=== PATIENT | male | born 1970 | race African-American/Black ===

== ENCOUNTER → 2017-02-17 | Outpatient (CLI) | payer MEDICARE ==
[~2017-02-17] VITALS: Ht 170.2 cm; Wt 81.6 kg
[~2017-02-17] MED LIST: ACHD5005 PO; ALPR1TAB72 PO; BSP10T PO; FLUT1DIS26 IH; GLYB5TAB6 PO; PGLT30T PO; RT-COMBINH IH; SITA100T PO; SULI200T4 PO; ZLP10T PO; ZPR80C PO; [UNRECOGNIZED DRUG - CODE] PO; [UNRECOGNIZED DRUG - CODE] PO
--- NOTE | 2017-02-17 13:46 | Diagnostic Imaging Report ---
INDICATION: Line placement. TECHNIQUE: Single-view chest at 01:28 p.m. CORRELATION STUDY: None. FINDINGS: A right-sided central line has been placed. Tip appears to be just distal to the expected location of the aortocaval junction. Heart size, mediastinum, and vascularity are otherwise unremarkable. The lungs are clear with no consolidating infiltrate. There is no significant effusion or pneumothorax. IMPRESSION: 1. Right-sided central line tip appears to be just distal to the aortocaval junction. Dictated by: Dictated on workstation # [id number]
[2017-02-17 14:08] VITALS: BP 98/47
== END ==
LOC: SDC 12:05
PROVIDERS: ATTEND Orthopaedic Surgery
DX: Z45.2 Encounter for adjustment and management of vascular access device (principal); T81.9XXA Unspecified complication of procedure, initial encounter
CPT/HCPCS: 36569; 71010; 76937

== ENCOUNTER 2020-06-01 02:53 | Emergency (ER) | payer MEDICARE ==
[~2020-06-01] VITALS: Ht 170 cm; Wt 109.0 kg
--- OUTSIDE RECORDS SUMMARY | 2020-06-01 02:59 | XMS REPORT | Clinical Summary ---
Author Author Ellen, Kalyan Cardoza Organization [facility] Address Unknown Phone Unavailable Allergies, Adverse Reactions, Alerts Allergy Name Reaction Description Start Date Severity Status Pr ovider No Known Allergies Adamaris ROBERTT Conditions or Problems Problem Name Problem Code Onset Date Status Entry Date Provider Comment Standard Description Annotate Back pain, lumbar, chronic 724.2 Active Hector Spencer DO Lumbago BMI 35-35.9 Active Adamaris Dykes LRT B vani Mass Index 35.0-35.9, adult Obesity Class II (BMI 35-39.9) Active Adamaris ROBERTT Obesity, unspecified Shoulder pain, left, chronic 719.41 Active 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 Pain in joint involving shoulder region Medication List Medication Instructions Start Date Stop Date Generic Name NDC Status Provider Patient Instruction OXYCODONE HCL 5 MG ORAL TABLET 1 tab po 6 to 8 hours as need ed for pain OXYCODONE HCL 12880153861 Active Adamaris Dykes LRT Active GABAPENTIN 100 MG ORAL CAPSULE 1 po q hs GABAPENT IN 76292620212 Active Cordelia Soliman Active CYMBALTA 60 MG ORAL CAPSULE DELAYED RELEASE PARTICLES 1 cap by mouth daily DULOXETINE HCL 88304865601 Active Cordelia Soliman Active CYMBALTA 30 MG ORAL CAPSULE DELAYED RELEASE PARTICLES 1 cap by mouth daily x 7 days DULOXETINE HCL 93493004275 Active Hector Spencer DO Active HYDROCODONE-ACETAMINOPHEN 5-325 MG ORAL TABLET 1 tab b y mouth every 6 hours as needed HYDROCODONE-ACETAMINOPHEN 83170364834 Active Vinod Spencer DO Active Vital Signs Date Name Value Unit Range Description blood pressure, diastolic 94 mm[Hg] BP wallis blood pressure, systolic 140 mm[Hg] BP sys pulse rate E&M 109 /min Heart rate temperature E&M 98.2 [degF] Body temp erature weight E&M 231.90 [lb_av] Weight Measure d Encounters Code Encounter Date Provider Facility CPT-78062 Level 3 Est. 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
--- OUTSIDE RECORDS SUMMARY | 2020-06-01 02:59 | XMS REPORT | Clinical Summary ---
Author Author Admin, Kalyan Cardoza Organization [facility] Address Unknown Phone Unavailable Allergies, Adverse Reactions, Alerts Allergy Name Reaction Description Start Date Severity Status Pr ovider No Known Allergies Adamaris osorio LRT Conditions or Problems Problem Name Problem Code Onset Date Status Entry Date Provider Comment Standard Description Annotate Back pain, lumbar, chronic 724.2 Active Hector Spencer DO Lumbago BMI 35-35.9 Active Adamaris Dykes LRT B vani Mass Index 35.0-35.9, adult Obesity Class II (BMI 35-39.9) Active Adamaris osorio LRT Obesity, unspecified Shoulder pain, left, chronic 719.41 Active 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 Pain in joint involving shoulder region Medication List Medication Instructions Start Date Stop Date Generic Name NDC Status Provider Patient Instruction OXYCODONE HCL 5 MG ORAL TABLET 1 tab po 6 to 8 hours as need ed for pain OXYCODONE HCL 85091229423 Active Adamaris Dykes LRT Active GABAPENTIN 100 MG ORAL CAPSULE 1 po q hs GABAPENT [place] 72087522043 Active Cordelia Soliman Active CYMBALTA 60 MG ORAL CAPSULE DELAYED RELEASE PARTICLES 1 cap by mouth daily DULOXETINE HCL 74724096818 Active Cordelia Soliman Active CYMBALTA 30 MG ORAL CAPSULE DELAYED RELEASE PARTICLES 1 cap by mouth daily x 7 days DULOXETINE HCL 68165358390 Active Hector Spencer DO Active HYDROCODONE-ACETAMINOPHEN 5-325 MG ORAL TABLET 1 tab b y mouth every 6 hours as needed HYDROCODONE-ACETAMINOPHEN 98391510741 Active Vinod Spencer DO Active Vital Signs Date Name Value Unit Range Description blood pressure, diastolic 94 mm[Hg] BP wallis blood pressure, systolic 140 mm[Hg] BP sys pulse rate E&M 109 /min Heart rate temperature E&M 98.2 [degF] Body temp erature weight E&M 231.90 [lb_av] Weight Measure d Encounters Code Encounter Date Provider Facility CPT-66849 Level 3 Est. Patient 17:10:23 CDT Perla lopez APRN 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
--- OUTSIDE RECORDS SUMMARY | 2020-06-01 02:59 | XMS REPORT | Clinical Summary ---
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 Pain in joint involving shoulder region Medication List Medication Instructions Start Date Stop Date Generic Name NDC Status Provider Patient Instruction OXYCODONE HCL 5 MG ORAL TABLET 1 tab po 6 to 8 hours as need ed for pain OXYCODONE HCL 32277327391 Active Adamaris Dykes LRT Active GABAPENTIN 100 MG ORAL CAPSULE 1 po q hs GABAPENT IN 24449823135 Active Cordelia Soliman Active CYMBALTA 60 MG ORAL CAPSULE DELAYED RELEASE PARTICLES 1 cap by mouth daily DULOXETINE HCL 75282130294 Active Cordelia Soliman Active CYMBALTA 30 MG ORAL CAPSULE DELAYED RELEASE PARTICLES 1 cap by mouth daily x 7 days DULOXETINE HCL 01805544263 Active Hector Spencer DO Active HYDROCODONE-ACETAMINOPHEN 5-325 MG ORAL TABLET 1 tab b y mouth every 6 hours as needed HYDROCODONE-ACETAMINOPHEN 81995953284 Active Vinod Spencer DO Active Vital Signs Date Name Value Unit Range Description blood pressure, diastolic 94 mm[Hg] BP wallis blood pressure, systolic 140 mm[Hg] BP sys pulse rate E&M 109 /min Heart rate temperature E&M 98.2 [degF] Body temp erature weight E&M 231.90 [lb_av] Weight Measure d Encounters Code Encounter Date Provider Facility CPT-24571 Level 3 Est. 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
--- OUTSIDE RECORDS SUMMARY | 2020-06-01 02:59 | XMS REPORT ---
Author Author [facility] Medic al HALLIE Luna Organization [facility] Address [address] [place] [id number] Phone [phone] Care Team Providers Care Civil Rights Attorney Name Role Phone NISHA TRAN DO PP [phone] Summary purpose TRANSITION OF CARE AUTO GENERATION Chief Complaint and Reason for Visit Admit Diagnosis 1 JOINT PAIN-L/LEG Problem list No authorized problems tracked for continuity of care are available for this vis it. Encounters No authorized problems tracked for encounter diagnoses are available for this vi sit. Medications No medications recorded for this patient visit Allergies, adverse reactions, alerts Allergen Category Ingredient Status Reaction Severity Onset Celexa Drug Allergy Celexa Confirmed or Verified Celexa Drug Allergy citalopram Confirmed or Verified Haldol Drug Allergy Haldol Confirmed or Verified Haldol Drug Allergy haloperidol Confirmed or Verified metformin Drug Allergy metformin Confirmed or Verified Immunizations No immunizations recorded for this patient visit Relevant diagnostic tests and/or laboratory data RESULTS Radiology Results [id number] KNEE XRAY - 3 VIEW PACs Image DATE OF EXAM: Jul 16 2015 RAD 0953-KNEE XRAY-3 VIEW - RIGHT: RADIOLOGY REPORT DATE OF SERVICE: 07/16/15 HISTORY: Knee pain RIGHT KNEE 3 [id number] HOURS The medial and lateral joint compartment s are normal. There is patellar spurring. There is no fracture or loose body. Mineralization is normal. IMPRESSION: Mild patellofemoral osteoarthritis. Rolly Manning MD MWThiago/nd07/16/2015 11:19:00 / 06/25 11:28:39 cc:Darnell Cardoza This document has been electronically Signed by: On: DATE OF EXAM: Jul 16 2015 RAD 0953-KNEE XRAY-3 VIEW - RIGHT: RADIOLOGY REPORT DATE OF SERVICE: 07/16/15 HISTORY: Knee pain RIGHT KNEE 3 [id number] HOURS The medial and lateral joint compartment s are normal. There is patellar spurring. There is no fracture or loose body. Mineralization is normal. IMPRESSION: Mild patellofemoral osteoarthritis. MD SEGUN Riddle/nd07/16/2015 11:19:06/25 11:28:39 cc:Darnell Cardoza This document has been electronically Signed by: ROLLY MANNING On: Jul 16 2 015 12:11P Result Amended on 2015-07-16 at 12:11:48 . Previous status was VT. KNEE XRAY - 3 VIEW PACs Image DATE OF EXAM: Jul 16 2015 RAD 0953-KNEE XRAY-3 VIEW - LEFT: RADIOLOGY REPORT DATE OF SERVICE: 07/16/15 HISTORY: Left knee pain LEFT KNEE 3 [id number] HOURS The medial and lateral joint compartment s are normal. There is mild degenerative patellar spurring. Minerali zation is normal. There is no fracture or loose body. IMPRESSION: Mild patellofemoral osteoarthritis. MD SEGUN Riddle/nd07/16/2015 11:19:06/25 11:29:21 cc:Darnell Cardoza This document has been electronically Signed by: On: DATE OF EXAM: Jul 16 2015 RAD 0953-KNEE XRAY-3 VIEW - LEFT: RADIOLOGY REPORT DATE OF SERVICE: 07/16/15 HISTORY: Left knee pain LEFT KNEE 3 [id number] HOURS The medial and lateral joint compartment s are normal. There is mild degenerative patellar spurring. Minerali zation is normal. There is no fracture or loose body. IMPRESSION: Mild patellofemoral osteoarthritis. MD SEGUN Riddle/nd07/16/2015 11:19:06/25 11:29:21 cc:Darnell Cardoza This document has been electronically Signed by: ROLLY MANNING On: Jul 16 2 015 12:11P Result Amended on 2015-07-16 at 12:11:53 . Previous status was VT. LUMBAR SPINE XRAY - 5V PACs Image DATE OF EXAM: Jul 16 2015 RAD 1050-LUMBAR SPINE XRAY-5 VIEW : RADIOLOGY REPORT DATE OF SERVICE: 07/16/15 HISTORY: Back pain LUMBAR SPINE 5 [id number] HOURS The lumbar vertebrae are normal in heigh t. There is no fracture. There is mild degenerative retrolisthesis of L 3 on L4 measuring 4-5 mm. There is disc narrowing with prominent margina l osteophytes at the L3-L4 level. There is degenerative facet narro wing and sclerosis at L4-L5 and L5-S1. There are changes of prior abdominal wal l herniorrhaphy. IMPRESSION: Degenerative lumbar disc kunal nges at L3-L4. Moderate lower lumbar facet arthrosis. Degenerative L3- L4 retrolisthesis. MD SEGUN Riddle/nd07/16/2015 11:18:06/25 11:27:16 cc:Darnell Cardoza This document has been electronically Signed by: On: DATE OF EXAM: Jul 16 2015 RAD 1050-LUMBAR SPINE XRAY-5 VIEW : RADIOLOGY REPORT DATE OF SERVICE: 07/16/15 HISTORY: Back pain LUMBAR SPINE 5 [id number] HOURS The lumbar vertebrae are normal in heigh t. There is no fracture. There is mild degenerative retrolisthesis of L 3 on L4 measuring 4-5 mm. There is disc narrowing with prominent margina l osteophytes at the L3-L4 level. There is degenerative facet narro wing and sclerosis at L4-L5 and L5-S1. There are changes of prior abdominal wal l herniorrhaphy. IMPRESSION: Degenerative lumbar disc kunal nges at L3-L4. Moderate lower lumbar facet arthrosis. Degenerative L3- L4 retrolisthesis. MD SEGUN Riddle/nd07/16/2015 11:18:00 06/25 11:27:16 cc:Darnell Cardoza This document has been electronically Signed by: ROLLY MANNING On: Jul 16 2 015 12:11P Result Amended on 2015-07-16 at 12:11:46 . Previous status was VT. PELVIS W/BILAT HIP XRAY PACs Image DATE OF EXAM: Jul 16 2015 RAD 1241-PELVIS W/BILAT HIP XRAYS : RADIOLOGY REPORT DATE OF SERVICE: 07/16/15 HISTORY: Bilateral hip pain PELVIS AND BILATERAL [id number] HOURS The bony pelvis is intact. The sacroilia c joints are normal and symmetrical. There is degenerative spurr ing involving the lateral acetabular margin on the right and minim al degenerative spurring is present at the left acetabulum. Both fem oral heads appear intact. There is mild femoral head spurring on the left. IMPRESSION: Bilateral hip osteoarthritis. MD SEGUN Riddle/nd07/16/2015 11:19:06/25 11:30:09 cc:Darnell Cardoza This document has been electronically Signed by: On: DATE OF EXAM: Jul 16 2015 RAD 1241-PELVIS W/BILAT HIP XRAYS : RADIOLOGY REPORT DATE OF SERVICE: 07/16/15 HISTORY: Bilateral hip pain PELVIS AND BILATERAL [id number] HOURS The bony pelvis is intact. The sacroilia c joints are normal and symmetrical. There is degenerative spurr ing involving the lateral acetabular margin on the right and minim al degenerative spurring is present at the left acetabulum. Both fem oral heads appear intact. There is mild femoral head spurring on the left. IMPRESSION: Bilateral hip osteoarthritis. MD SEGUN Riddle/nd07/16/2015 11:19:06/25 11:30:09 cc:Darnell Cardoza This document has been electronically Signed by: ROLLY MANNING On: Jul 16 2 015 12:11P Result Amended on 2015-07-16 at 12:11:54 . Previous status was VT. History of procedures Procedure Code Code Type Description Date Performed Performing Physician [id number] CPT-4 X-RAY EXAM OF LOWER SPINE 07-16-2015 DARNELL ORTIZ 28590 CPT-4 X-RAY EXAM OF HIPS 07-16-2015 DARNELL RUSH 57712 CPT-4 X-RAY EXAM OF KNEE, 3 07-16-2015 VANDANA ORTIZ 51957 CPT-4 X-RAY EXAM OF KNEE, 3 07-16-2015 VANDANA ORTIZ Functional status No functional or cognitive status observations are available for this visit. Vital signs No authorized vital signs are available for this visit. Social history No Social History or smoking status observations were recorded for this visit. ( Unknown if ever smoked.) Treatment Plan No treatment plan text is available for this visit. Hospital discharge instructions No discharge instruction text is available for this visit.
--- OUTSIDE RECORDS SUMMARY | 2020-06-01 02:59 | XMS REPORT | Clinical Summary ---
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 Problem Name Problem Code Onset Date Status Entry Date Provider Comment Standard Description Annotate Back pain, lumbar, chronic 724.2 Active Hector Spencer DO Lumbago Medication List Medication Instructions Start Date Stop Date Generic Name NDC Status Provider Patient Instruction GABAPENTIN 100 MG ORAL CAPSULE 1 po q hs GABAPENT [place] 31715068047 Active Cordelia Soliman Active CYMBALTA 60 MG ORAL CAPSULE DELAYED RELEASE PARTICLES 1 cap by mouth daily DULOXETINE HCL 88312950348 Active Cordelia Soliman Active CYMBALTA 30 MG ORAL CAPSULE DELAYED RELEASE PARTICLES 1 cap by mouth daily x 7 days DULOXETINE HCL 27486904081 Active Hector Spencer DO Active HYDROCODONE-ACETAMINOPHEN 5-325 MG ORAL TABLET 1 tab b y mouth every 6 hours as needed HYDROCODONE-ACETAMINOPHEN 63476018585 Active B adarsh Spencer DO Active Encounters Code Encounter Date Provider Facility CPT-96377 Level 3 New Patient 15:40:55 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
--- OUTSIDE RECORDS SUMMARY | 2020-06-01 02:59 | XMS REPORT | Referral Summary ---
Author Author [facility] Organization [facility] Address Unknown Phone Unavailable Care Team Providers Care Leveler Helper Name Role Phone Vishal Ellis PCP Encounter [facility] Date(s): 03/19/20 - 03/19/20 [facility] [address] [place] [address] [phone] Discharge Disposition: 01-Home or Self Care Attending Physician: Cecilio Pham MD Admitting Physician: Cecilio Pham MD Referring Physician: Cecilio Pham MD Vital Signs Most recent to 1 oldest [Reference Range]: Temperature Temporal 36.3 degC Artery [36.3-37.8 (03/19/20 6:00 AM) degC] Heart Rate Monitored 85 bpm [60-100 bpm] (03/19/20 11:15 AM) Respiratory Rate 19 br/min [14-20 br/min] (03/19/20 11:15 AM) Blood Pressure 112/86 mmHg [90-140/60-90 mmHg] (03/19/20 11:15 AM) Mean Arterial 96 mmHg Pressure, Cuff (03/19/20 11:15 AM) SpO2 96 % (03/19/20 11:15 AM) Problem List No data available for this section Allergies, Adverse Reactions, Alerts Substance Reaction Severity Status CeleXA Unknown Active Medications aspirin 81 mg, Oral, Daily, 0 Refill(s) Start Date: 03/19/20 Status: Ordered atorvastatin 10 mg oral tablet 10 mg 1 tabs, Oral, Bedtime (once a day), # 90 tabs, 0 Refill(s) Start Date: 03/13/20 Status: Ordered baclofen 20 mg oral tablet 20 mg 1 tabs, Oral, TID, # 90 tabs, 0 Refill(s) Start Date: 03/13/20 Status: Ordered Belsomra See Instructions, Oral Bedtime (once a day), 0 Refill(s) Start Date: 03/13/20 Status: Ordered benztropine 1 mg oral tablet 1 mg 1 tabs, Oral, BID, # 60 tabs, 0 Refill(s) Start Date: 03/13/20 Status: Ordered busPIRone 10 mg oral tablet 10 mg 1 tabs, Oral, BID, # 270 tabs, 0 Refill(s) Start Date: 03/19/20 Status: Ordered divalproex sodium 500 mg oral delayed release tablet mg tabs, Oral, Bedtime (once a day), 0 Refill(s) Start Date: 03/13/20 Status: Ordered glimepiride 2 mg oral tablet 2 mg 1 tabs, Oral, Daily, # 30 tabs, 0 Refill(s) Start Date: 03/13/20 Status: Ordered Invega Sustenna 234 mg/1.5 mL intramuscular suspension, extended release See Instructions, 234 mg IntraMuscular qMonth, 0 Refill(s) Start Date: 03/13/20 Status: Ordered Linzess 145 mcg oral capsule 145 mcg 1 caps, Oral, Daily, # 30 caps, 0 Refill(s) Start Date: 03/13/20 Status: Ordered metoprolol tartrate 25 mg oral tablet 25 mg 1 tabs, Oral, BID, # 60 tabs, 0 Refill(s) Start Date: 03/13/20 Status: Ordered oxyCODONE 5 mg oral capsule 5 mg 1 caps, Oral, q6hr, as needed for pain, 0 Refill(s) Start Date: 03/13/20 Status: Ordered Vistaril 50 mg oral capsule 50 mg 1 caps, Oral, Bedtime (once a day), # 30 caps, 0 Refill(s) Start Date: 03/19/20 Status: Ordered Vraylar 6 mg oral capsule 6 mg 1 caps, Oral, Daily, 0 Refill(s) Start Date: 03/19/20 Status: Ordered Results Most recent to 1 oldest [Reference Range]: WBC [4.8-10.8 10.2 10*3/uL 10*3/uL] (03/19/20 6:43 AM) RBC [4.60-6.20] 4.71 (03/19/20 6:43 AM) BUN [4-20 mg/dL] 14 mg/dL (03/19/20 6:43 AM) ABO/Rh B POS (03/19/20 6:42 AM) Glucose Lvl [70-100 139 mg/dL mg/dL] *HI* (03/19/20 6:43 AM) Potassium Lvl 4.3 mEq/L [3.6-5.1 mEq/L] (03/19/20 6:43 AM) MCV [82.0-99.0 fL] 89.2 fL (03/19/20 6:43 AM) MCHC [32.0-36.0 33.3 gm/dL gm/dL] (03/19/20 6:43 AM) Sodium Lvl [136-144 137 mEq/L mEq/L] (03/19/20 6:43 AM) Hct [42.0-52.0 %] 42.0 % (03/19/20:43 AM) Calcium Lvl 8.9 mg/dL [8.6-10.0 mg/dL] (03/19/20 6:43 AM) MCH [27.0-32.0 pg] 29.7 pg (03/19/20 6:43 AM) Hgb [14.0-18.0 14.0 gm/dL gm/dL] (03/19/20 6:43 AM) MPV [9.4-12.3 fL] 10.3 fL (03/19/20 6:43 AM) Platelet [150-400 240 10*3/uL 10*3/uL] (03/19/20 6:43 AM) Chloride [99-109 106 mEq/L mEq/L] (03/19/20 6:43 AM) CO2 [22-32 mEq/L] 22 mEq/L (03/19/20:43 AM) AGAP [3-20 mEq/L] 9 mEq/L (03/19/20 6:43 AM) RDW [11.5-14.5 %] 12.9 % (03/19/20 6:43 AM) Antibody Screen Tube NEG (03/19/20 6:42 AM) eGFR [>60 mL/min] >60 mL/min 1 (03/19/20 6:43 AM) Creatinine Lvl 0.81 mg/dL [0.64-1.27 mg/dL] (03/19/20 6:43 AM) 1Result Comment: Multiply eGFR results by 1.21 for race. Immunizations No data available for this section Procedures Procedure Date Related Diagnosis Body Site Status Catheterization Left Heart with Coronary 03/19/20 Completed Angiography1 1auto-populated from documented surgical case Social History Social History Type Response Smoking Status 10 or more cigarettes (1/2 pack or more)/day in last 30 days; Type: Cigarettes; Tobacco use per day: 1 pack or more; Number of years: 30; Total pack years: 1.5; Date Last Use: 020; entered on: 03/19/20 Assessment and Plan No data available for this section
--- OUTSIDE RECORDS SUMMARY | 2020-06-01 02:59 | XMS REPORT ---
Author Author [facility] Medic al HALLIE Luna Organization [facility] Address [address] [id number] Phone [phone] Care Team Providers Care Thoracic Surgeon Name Role Phone NISHA TRAN DO PP [phone] Summary purpose TRANSITION OF CARE AUTO GENERATION Chief Complaint and Reason for Visit No authorized Reason for Visit (Admitting Diagnosis) is available for this visit . Problem list No authorized problems tracked for [...] tests and/or laboratory data RESULTS Radiology Results [id number] KNEE XRAY - 3 VIEW PACs Image DATE OF EXAM: Jul 16 2015 RAD 0953-KNEE XRAY-3 VIEW - RIGHT: RADIOLOGY REPORT DATE OF SERVICE: 07/16/15 HISTORY: Knee pain RIGHT KNEE 3 [id number] HOURS The medial and lateral joint compartment s are normal. There is patellar spurring. There is no fracture or loose body. Mineralization is normal. IMPRESSION: Mild patellofemoral osteoarthritis. Rolly Manning MD MWThiago/ny07/16/2015 11:19:00 / 06/25 11:28:39 cc:Maikol Cardoza This document has been electronically Signed by: On: DATE OF EXAM: Jul 16 2015 RAD 0953-KNEE XRAY-3 VIEW - RIGHT: RADIOLOGY REPORT DATE OF SERVICE: 07/16/15 HISTORY: Knee pain RIGHT KNEE 3 [id number] HOURS The medial and lateral joint compartment s are normal. There is patellar spurring. There is no fracture or loose body. Mineralization is normal. IMPRESSION: Mild patellofemoral osteoarthritis. MD SEGUN Riddle/ny07/16/2015 11:19:06/25 11:28:39 cc:Maikol Cardoza This document has been electronically Signed by: ROLLY MANNING On: Jul 16 2 015 12:11P Result Amended on 2015-07-16 at 12:11:48 . Previous status was OK. KNEE XRAY - 3 VIEW PACs Image DATE OF EXAM: Jul 16 2015 RAD 0953-KNEE XRAY-3 VIEW - LEFT: RADIOLOGY REPORT DATE OF SERVICE: 07/16/15 HISTORY: Left knee pain LEFT KNEE 3 [id number] HOURS The medial and lateral joint compartment s are normal. There is mild degenerative patellar spurring. Minerali zation is normal. There is no fracture or loose body. IMPRESSION: Mild patellofemoral osteoarthritis. MD SEGUN Riddle/ny07/16/2015 11:19:06/25 11:29:21 cc:Maikol Cardoza This document has been electronically Signed by: On: DATE OF EXAM: Jul 16 2015 RAD 0953-KNEE XRAY-3 VIEW - LEFT: RADIOLOGY REPORT DATE OF SERVICE: 07/16/15 HISTORY: Left knee pain LEFT KNEE 3 [id number] HOURS The medial and lateral joint compartment s are normal. There is mild degenerative patellar spurring. Minerali zation is normal. There is no fracture or loose body. IMPRESSION: Mild patellofemoral osteoarthritis. MD SEGUN Riddle/ny07/16/2015 11:19:06/25 11:29:21 cc:Maikol Cardoza This document has been electronically Signed by: ROLLY MANNING On: Jul 16 2 015 12:11P Result Amended on 2015-07-16 at 12:11:53 . Previous status was OK. LUMBAR SPINE XRAY - 5V PACs Image DATE OF EXAM: Jul 16 2015 RAD 1050-LUMBAR SPINE XRAY-5 VIEW : RADIOLOGY REPORT DATE OF SERVICE: 07/16/15 HISTORY: Back pain LUMBAR SPINE 5 [id number] HOURS The lumbar vertebrae are normal in [...] arthrosis. Degenerative L3- L4 retrolisthesis. MD SEGUN Riddle/ny07/16/2015 11:18:06/25 11:27:16 cc:Maikol Cardoza This document has been electronically Signed by: On: DATE OF EXAM: Jul 16 2015 RAD 1050-LUMBAR SPINE XRAY-5 VIEW : RADIOLOGY REPORT DATE OF SERVICE: 07/16/15 HISTORY: Back pain LUMBAR SPINE 5 [id number] HOURS The lumbar vertebrae are normal in [...] arthrosis. Degenerative L3- L4 retrolisthesis. MD SEGUN Riddle/ny07/16/2015 11:18:00 / 06/25 11:27:16 cc:Maikol Cardoza This document has been electronically Signed by: ROLLY MANNING On: Jul 16 2 015 12:11P Result Amended on 2015-07-16 at 12:11:46 . Previous status was OK. PELVIS W/BILAT HIP XRAY PACs Image DATE OF EXAM: Jul 16 2015 RAD 1241-PELVIS W/BILAT HIP XRAYS : RADIOLOGY REPORT DATE OF SERVICE: 07/16/15 HISTORY: Bilateral hip pain PELVIS AND BILATERAL [id number] HOURS The bony pelvis is intact. The sacroilia c joints are normal and symmetrical. There is degenerative spurr ing involving the lateral acetabular margin on the right and minim al degenerative spurring is present at the left acetabulum. Both fem oral heads appear intact. There is mild femoral head spurring on the left. IMPRESSION: Bilateral hip osteoarthritis. MD SEGUN Riddle/nh07/16/2015 11:19:06/25 11:30:09 cc:Maikol Cardoza This document has been electronically Signed by: On: DATE OF EXAM: Jul 16 2015 RAD 1241-PELVIS W/BILAT HIP XRAYS : RADIOLOGY REPORT DATE OF SERVICE: 07/16/15 HISTORY: Bilateral hip pain PELVIS AND BILATERAL [id number] HOURS The bony pelvis is intact. The sacroilia c joints are normal and symmetrical. There is degenerative spurr ing involving the lateral acetabular margin on the right and minim al degenerative spurring is present at the left acetabulum. Both fem oral heads appear intact. There is mild femoral head spurring on the left. IMPRESSION: Bilateral hip osteoarthritis. MD SEGUN Riddle/nh07/16/2015 11:19:06/25 11:30:09 cc:Maikol Cardoza This document has been electronically Signed by: ROLLY MANNING On: Jul 16 2 015 12:11P Result Amended on 2015-07-16 at 12:11:54 . Previous status was OK. History of procedures No procedures recorded for this patient visit. Functional status No functional or cognitive status [...]
--- OUTSIDE RECORDS SUMMARY | 2020-06-01 02:59 | XMS REPORT | Clinical Summary ---
Author Author Ellen, Kalyan Cardoza Organization [facility] Address Unknown Phone Unavailable Allergies, Adverse [...] pain, left, chronic 719.41 Active Perla Fatou FRANCHISE FIELD CONSULTANT Pain in joint involving shoulder region Medication List Medication Instructions Start Date Stop Date Generic Name NDC Status Provider Patient Instruction OXYCODONE HCL 5 MG ORAL TABLET 1 tab po 6 to 8 hours as need ed for pain OXYCODONE HCL 37710875522 Active Adamaris Dykes LRT Active GABAPENTIN 100 MG ORAL CAPSULE 1 po q hs GABAPENT IN 92154982467 Active Cordelia Soliman Active CYMBALTA 60 MG ORAL CAPSULE DELAYED RELEASE PARTICLES 1 cap by mouth daily DULOXETINE HCL 28142809916 Active Cordelia Soliman Active CYMBALTA 30 MG ORAL CAPSULE DELAYED RELEASE PARTICLES 1 cap by mouth daily x 7 days DULOXETINE HCL 86774608980 Active Hector Spencer DO Active HYDROCODONE-ACETAMINOPHEN 5-325 MG ORAL TABLET 1 tab b y mouth every 6 hours as needed HYDROCODONE-ACETAMINOPHEN 29375294189 Active Vinod Spencer DO Active Vital Signs Date Name Value Unit Range Description blood pressure, diastolic 94 mm[Hg] BP wallis blood pressure, systolic 140 mm[Hg] BP sys pulse rate E&M 109 /min Heart rate temperature E&M 98.2 [degF] Body temp erature weight E&M 231.90 [lb_av] Weight Measure d Encounters Code Encounter Date Provider Facility CPT-32583 Level 3 Est. 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
--- OUTSIDE RECORDS SUMMARY | 2020-06-01 02:59 | XMS REPORT | Clinical Summary ---
Author Author Admin, Kalyan Cardoza Organization [facility] Address Unknown Phone Unavailable Allergies, Adverse Reactions, [...] pain, left, chronic 719.41 Active Perla Sell THERAPIST PHYS Pain in joint involving shoulder region Medication List Medication Instructions Start Date Stop Date Generic Name NDC Status Provider Patient Instruction OXYCODONE HCL 5 MG ORAL TABLET 1 tab po 6 to 8 hours as need ed for pain OXYCODONE HCL 03010900930 Active Adamaris Dykes LRT Active GABAPENTIN 100 MG ORAL CAPSULE 1 po q hs GABAPENT [place] 54950107216 Active Cordelia Soliman Active CYMBALTA 60 MG ORAL CAPSULE DELAYED RELEASE PARTICLES 1 cap by mouth daily DULOXETINE HCL 26139140565 Active Cordelia Soliman Active CYMBALTA 30 MG ORAL CAPSULE DELAYED RELEASE PARTICLES 1 cap by mouth daily x 7 days DULOXETINE HCL 75700791335 Active Hector Spencer DO Active HYDROCODONE-ACETAMINOPHEN 5-325 MG ORAL TABLET 1 tab b y mouth every 6 hours as needed HYDROCODONE-ACETAMINOPHEN 97445146703 Active Vinod Spencer DO Active Vital Signs Date Name Value Unit Range Description blood pressure, diastolic 94 mm[Hg] BP wallis blood pressure, systolic 140 mm[Hg] BP sys pulse rate E&M 109 /min Heart rate temperature E&M 98.2 [degF] Body temp erature weight E&M 231.90 [lb_av] Weight Measure d Encounters Code Encounter Date Provider Facility CPT-65248 Level 3 Est. 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
--- OUTSIDE RECORDS SUMMARY | 2020-06-01 03:00 | XMS REPORT | Clinical Summary ---
Author Author Admin, Kalyan Cardoza Organization [facility] Address Unknown Phone Unavailable Allergies, Adverse Reactions, Alerts Allergy Name Reaction Description Start Date Severity Status Pr ovider No Known Allergies Francine Villaseñorughn CAP BLOCKER Conditions or Problems Problem Name Problem Code Onset Date Status Entry Date Provider Comment Standard Description Annotate Back pain, lumbar, chronic 724.2 Active Hector Spencer DO Lumbago Medication List Medication Instructions Start Date Stop Date Generic Name NDC Status Provider Patient Instruction GABAPENTIN 100 MG ORAL CAPSULE 1 po q hs GABAPENT IN 76141314063 Active Cordeila Soliman Active CYMBALTA 60 MG ORAL CAPSULE DELAYED RELEASE PARTICLES 1 cap by mouth daily DULOXETINE HCL 12879952674 Active Cordelia Soliman Active CYMBALTA 30 MG ORAL CAPSULE DELAYED RELEASE PARTICLES 1 cap by mouth daily x 7 days DULOXETINE HCL 68161807819 Active Hector Spencer DO Active HYDROCODONE-ACETAMINOPHEN 5-325 MG ORAL TABLET 1 tab b y mouth every 6 hours as needed HYDROCODONE-ACETAMINOPHEN 99858862086 Active B adarsh Spencer DO Active Encounters Code Encounter Date Provider Facility CPT-92720 Level 3 New Patient 15:40:55 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
--- OUTSIDE RECORDS SUMMARY | 2020-06-01 03:00 | XMS REPORT | Clinical Summary ---
Author Author Admin, Kalyan Cardoza Organization [facility] Address Unknown Phone Unavailable Allergies, Adverse Reactions, Alerts Allergy Name Reaction Description Start Date Severity Status Pr ovider No Known Allergies Francine Villaseñorughn MANAGER OF MEDICAL Conditions or Problems Problem Name Problem Code Onset Date Status Entry Date Provider Comment Standard Description Annotate Back pain, lumbar, chronic 724.2 Active Hector Spencer DO Lumbago Medication List Medication Instructions Start Date Stop Date Generic Name NDC Status Provider Patient Instruction GABAPENTIN 100 MG ORAL CAPSULE 1 po q hs GABAPENT IN 22008287407 Active Cordelia Soliman Active CYMBALTA 60 MG ORAL CAPSULE DELAYED RELEASE PARTICLES 1 cap by mouth daily DULOXETINE HCL 39455024432 Active Cordelia Soliman Active CYMBALTA 30 MG ORAL CAPSULE DELAYED RELEASE PARTICLES 1 cap by mouth daily x 7 days DULOXETINE HCL 59458052473 Active Hector Spencer DO Active HYDROCODONE-ACETAMINOPHEN 5-325 MG ORAL TABLET 1 tab b y mouth every 6 hours as needed HYDROCODONE-ACETAMINOPHEN 51380220736 Active B adarsh Spencer DO Active Encounters Code Encounter Date Provider Facility CPT-62266 Level 3 New Patient 15:40:55 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
--- OUTSIDE RECORDS SUMMARY | 2020-06-01 03:00 | XMS REPORT | Clinical Summary ---
Author Author Admin, Kalyan Cardoza Organization [facility] Address Unknown Phone Unavailable Allergies, Adverse Reactions, Alerts Allergy Name Reaction Description Start Date Severity Status Pr ovider No Known Allergies Francine Bustillos PRINCIPAL GIFTS OFFICER Conditions or Problems Problem Name Problem Code Onset Date Status Entry Date Provider Comment Standard Description Annotate Back pain, lumbar, chronic 724.2 Active Hector Spencer DO Lumbago Medication List Medication Instructions Start Date Stop Date Generic Name NDC Status Provider Patient Instruction GABAPENTIN 100 MG ORAL CAPSULE 1 po q hs GABAPENT IN 59165773500 Active Cordelia Soliman Active CYMBALTA 60 MG ORAL CAPSULE DELAYED RELEASE PARTICLES 1 cap by mouth daily DULOXETINE HCL 69648741290 Active Cordelia Soliman Active CYMBALTA 30 MG ORAL CAPSULE DELAYED RELEASE PARTICLES 1 cap by mouth daily x 7 days DULOXETINE HCL 51130546210 Active Hector Spencer DO Active HYDROCODONE-ACETAMINOPHEN 5-325 MG ORAL TABLET 1 tab b y mouth every 6 hours as needed HYDROCODONE-ACETAMINOPHEN 04835681034 Active B adarsh Spencer DO Active Vital Signs Date Name Value Unit Range Description blood pressure, diastolic 70 mm[Hg] BP wallis blood pressure, systolic 100 mm[Hg] BP sys height E&M 68 [in_us] Bdy height pulse rate E&M 107 /min Heart rate temperature E&M 98.8 [degF] Body temp erature weight E&M 213 [lb_av] Weight Measure d Encounters Code Encounter Date Provider Facility CPT-99707 Level 3 New Patient 15:40:55 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
--- OUTSIDE RECORDS SUMMARY | 2020-06-01 03:00 | XMS REPORT | Clinical Summary ---
Author Author Admin, Kalyan Cardoza Organization [facility] Address Unknown Phone Unavailable Allergies, Adverse Reactions, Alerts Allergy Name Reaction Description Start Date Severity Status Pr ovider No Known Allergies Francine Bustillos TERRITORY SALES CONSULTANT Conditions or Problems Problem Name Problem Code Onset Date Status Entry Date Provider Comment Standard Description Annotate Back pain, lumbar, chronic 724.2 Active Hector Spencer DO Lumbago Medication List Medication Instructions Start Date Stop Date Generic Name NDC Status Provider Patient Instruction GABAPENTIN 100 MG ORAL CAPSULE 1 po q hs GABAPENT IN 47431924120 Active Hector Spencer DO Active CYMBALTA 60 MG ORAL CAPSULE DELAYED RELEASE PARTICLES 1 cap by mouth daily DULOXETINE HCL 10787973119 Active Hector Spencer DO Active CYMBALTA 30 MG ORAL CAPSULE DELAYED RELEASE PARTICLES 1 cap by mouth daily x 7 days DULOXETINE HCL 51293244884 Active Hector Spencer DO Active HYDROCODONE-ACETAMINOPHEN 5-325 MG ORAL TABLET 1 tab b y mouth every 6 hours as needed HYDROCODONE-ACETAMINOPHEN 60698442352 Active B adarsh Spencer DO Active Vital Signs Date Name Value Unit Range Description blood pressure, diastolic 70 mm[Hg] BP wallis blood pressure, systolic 100 mm[Hg] BP sys height E&M 68 [in_us] Bdy height pulse rate E&M 107 /min Heart rate temperature E&M 98.8 [degF] Body temp erature weight E&M 213 [lb_av] Weight Measure d Encounters Code Encounter Date Provider Facility CPT-43964 Level 3 New Patient 15:40:55 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
--- OUTSIDE RECORDS SUMMARY | 2020-06-01 03:00 | XMS REPORT | Clinical Summary ---
Author Author Admin, Kalyan Cardoza Organization [facility] Address Unknown Phone Unavailable Allergies, Adverse Reactions, Alerts Allergy Name Reaction Description Start Date Severity Status Pr ovider No Known Allergies Francine Bustillos CIVIL ENGINEERING PROFESSOR Conditions or Problems Problem Name Problem Code Onset Date Status Entry Date Provider Comment Standard Description Annotate Back pain, lumbar, chronic 724.2 Active Hector Spencer DO Lumbago Medication List Medication Instructions Start Date Stop Date Generic Name NDC Status Provider Patient Instruction GABAPENTIN 100 MG ORAL CAPSULE 1 po q hs GABAPENT IN 93960088347 Active Hector Spencer DO Active CYMBALTA 60 MG ORAL CAPSULE DELAYED RELEASE PARTICLES 1 cap by mouth daily DULOXETINE HCL 45445956021 Active Hector Spencer DO Active CYMBALTA 30 MG ORAL CAPSULE DELAYED RELEASE PARTICLES 1 cap by mouth daily x 7 days DULOXETINE HCL 57570022158 Active Hector Spencer DO Active HYDROCODONE-ACETAMINOPHEN 5-325 MG ORAL TABLET 1 tab b y mouth every 6 hours as needed HYDROCODONE-ACETAMINOPHEN 17325758989 Active B adarsh Spencer DO Active Vital Signs Date Name Value Unit Range Description blood pressure, diastolic 70 mm[Hg] BP wallis blood pressure, systolic 100 mm[Hg] BP sys height E&M 68 [in_us] Bdy height pulse rate E&M 107 /min Heart rate temperature E&M 98.8 [degF] Body temp erature weight E&M 213 [lb_av] Weight Measure d Encounters Code Encounter Date Provider Facility CPT-53393 Level 3 New Patient 15:40:55 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
--- OUTSIDE RECORDS SUMMARY | 2020-06-01 03:00 | XMS REPORT | Clinical Summary ---
Author Author Admin, Kalyan Cardoza Organization [facility] Address Unknown Phone Unavailable Allergies, Adverse Reactions, Alerts Allergy Name Reaction Description Start Date Severity Status Pr ovider No Known Allergies Francine Bustillos VARNISH BLENDER Conditions or Problems Problem Name Problem Code Onset Date Status Entry Date Provider Comment Standard Description Annotate Back pain, lumbar, chronic 724.2 Active Hector Spencer DO Lumbago Medication List Medication Instructions Start Date Stop Date Generic Name NDC Status Provider Patient Instruction GABAPENTIN 100 MG ORAL CAPSULE 1 po q hs GABAPENT IN 67686038512 Active Hector Spencer DO Active CYMBALTA 60 MG ORAL CAPSULE DELAYED RELEASE PARTICLES 1 cap by mouth daily DULOXETINE HCL 63233925353 Active Hector Spencer DO Active CYMBALTA 30 MG ORAL CAPSULE DELAYED RELEASE PARTICLES 1 cap by mouth daily x 7 days DULOXETINE HCL 25649085956 Active Hector Spencer DO Active HYDROCODONE-ACETAMINOPHEN 5-325 MG ORAL TABLET 1 tab b y mouth every 6 hours as needed HYDROCODONE-ACETAMINOPHEN 78462292997 Active B adarsh Spencer DO Active Vital Signs Date Name Value Unit Range Description blood pressure, diastolic 70 mm[Hg] BP wallis blood pressure, systolic 100 mm[Hg] BP sys height E&M 68 [in_us] Bdy height pulse rate E&M 107 /min Heart rate temperature E&M 98.8 [degF] Body temp erature weight E&M 213 [lb_av] Weight Measure d Encounters Code Encounter Date Provider Facility CPT-54496 Level 3 New Patient 15:40:55 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
--- OUTSIDE RECORDS SUMMARY | 2020-06-01 03:00 | XMS REPORT | Clinical Summary ---
Author Author Admin, Kalyan Cardoza Organization [facility] Address Unknown Phone Unavailable Allergies, Adverse Reactions, Alerts Allergy Name Reaction Description Start Date Severity Status Pr ovider No Known Allergies Francine Lópezn WHAT JOB TITLES MEAN Conditions or Problems Problem Name Problem Code Onset Date Status Entry Date Provider Comment Standard Description Annotate Back pain, lumbar, chronic 724.2 Active Hector Spencer DO Lumbago Medication List Medication Instructions Start Date Stop Date Generic Name NDC Status Provider Patient Instruction GABAPENTIN 100 MG ORAL CAPSULE 1 po q hs GABAPENT IN 56552081466 Active Cordelia Soliman Active CYMBALTA 60 MG ORAL CAPSULE DELAYED RELEASE PARTICLES 1 cap by mouth daily DULOXETINE HCL 09320725814 Active Cordelia Soliman Active CYMBALTA 30 MG ORAL CAPSULE DELAYED RELEASE PARTICLES 1 cap by mouth daily x 7 days DULOXETINE HCL 85791698055 Active Hector Spencer DO Active HYDROCODONE-ACETAMINOPHEN 5-325 MG ORAL TABLET 1 tab b y mouth every 6 hours as needed HYDROCODONE-ACETAMINOPHEN 15791503728 Active B adarsh Spencer DO Active Encounters Code Encounter Date Provider Facility CPT-36510 Level 3 New Patient 15:40:55 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
--- OUTSIDE RECORDS SUMMARY | 2020-06-01 03:00 | XMS REPORT | Clinical Summary ---
Author Author Admin, Kalyan Cardoza Organization [facility] Address Unknown Phone Unavailable Allergies, Adverse Reactions, Alerts Allergy Name Reaction Description Start Date Severity Status Pr ovider No Known Allergies Francine Bustillos QUALITY RN Conditions or Problems Problem Name Problem Code Onset Date Status Entry Date Provider Comment Standard Description Annotate Back pain, lumbar, chronic 724.2 Active Hector Spencer DO Lumbago Medication List Medication Instructions Start Date Stop Date Generic Name NDC Status Provider Patient Instruction GABAPENTIN 100 MG ORAL CAPSULE 1 po q hs GABAPENT IN 07978108118 Active Hector Spencer DO Active CYMBALTA 60 MG ORAL CAPSULE DELAYED RELEASE PARTICLES 1 cap by mouth daily DULOXETINE HCL 48787827499 Active Hector Spencer DO Active CYMBALTA 30 MG ORAL CAPSULE DELAYED RELEASE PARTICLES 1 cap by mouth daily x 7 days DULOXETINE HCL 72642839389 Active Hector Spencer DO Active HYDROCODONE-ACETAMINOPHEN 5-325 MG ORAL TABLET 1 tab b y mouth every 6 hours as needed HYDROCODONE-ACETAMINOPHEN 23891854975 Active B adarsh Spencer DO Active Vital Signs Date Name Value Unit Range Description blood pressure, diastolic 70 mm[Hg] BP wallis blood pressure, systolic 100 mm[Hg] BP sys height E&M 68 [in_us] Bdy height pulse rate E&M 107 /min Heart rate temperature E&M 98.8 [degF] Body temp erature weight E&M 213 [lb_av] Weight Measure d Encounters Code Encounter Date Provider Facility CPT-88338 Level 3 New Patient 15:40:55 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
--- OUTSIDE RECORDS SUMMARY | 2020-06-01 03:00 | XMS REPORT | Clinical Summary ---
Author Author Admin, Kalyan Cardoza Organization [facility] Address Unknown Phone Unavailable Allergies, Adverse Reactions, Alerts Allergy Name Reaction Description Start Date Severity Status Pr ovider No Known Allergies Francine Villaseñorughn DECK STEWARD Conditions or Problems Problem Name Problem Code Onset Date Status Entry Date Provider Comment Standard Description Annotate Back pain, lumbar, chronic 724.2 Active Hector Spencer DO Lumbago Medication List Medication Instructions Start Date Stop Date Generic Name NDC Status Provider Patient Instruction GABAPENTIN 100 MG ORAL CAPSULE 1 po q hs GABAPENT IN 59839788346 Active Cordelia Soliman Active CYMBALTA 60 MG ORAL CAPSULE DELAYED RELEASE PARTICLES 1 cap by mouth daily DULOXETINE HCL 62086624742 Active Cordelia Soliman Active CYMBALTA 30 MG ORAL CAPSULE DELAYED RELEASE PARTICLES 1 cap by mouth daily x 7 days DULOXETINE HCL 60914409226 Active Hector Spencer DO Active HYDROCODONE-ACETAMINOPHEN 5-325 MG ORAL TABLET 1 tab b y mouth every 6 hours as needed HYDROCODONE-ACETAMINOPHEN 26758505673 Active B adarsh Spencer DO Active Encounters Code Encounter Date Provider Facility CPT-79029 Level 3 New Patient 15:40:55 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
--- OUTSIDE RECORDS SUMMARY | 2020-06-01 03:00 | XMS REPORT | Clinical Summary ---
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 Conditions or Problems Problem Name Problem Code Onset Date Status Entry Date Provider Comment Standard Description Annotate Back pain, lumbar, chronic 724.2 Active Hector Spencer DO Lumbago Medication List Medication Instructions Start Date Stop Date Generic Name NDC Status Provider Patient Instruction GABAPENTIN 100 MG ORAL CAPSULE 1 po q hs GABAPENT IN 19205911681 Active Hector Spencer DO Active CYMBALTA 60 MG ORAL CAPSULE DELAYED RELEASE PARTICLES 1 cap by mouth daily DULOXETINE HCL 83481633495 Active Hector Spencer DO Active CYMBALTA 30 MG ORAL CAPSULE DELAYED RELEASE PARTICLES 1 cap by mouth daily x 7 days DULOXETINE HCL 70113295796 Active Hector Spencer DO Active HYDROCODONE-ACETAMINOPHEN 5-325 MG ORAL TABLET 1 tab b y mouth every 6 hours as needed HYDROCODONE-ACETAMINOPHEN 96081353425 Active B adarsh Spencer DO Active Vital Signs Date Name Value Unit Range Description blood pressure, diastolic 70 mm[Hg] BP wallis blood pressure, systolic 100 mm[Hg] BP sys height E&M 68 [in_us] Bdy height pulse rate E&M 107 /min Heart rate temperature E&M 98.8 [degF] Body temp erature weight E&M 213 [lb_av] Weight Measure d Encounters Code Encounter Date Provider Facility CPT-83699 Level 3 New Patient 15:40:55 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
--- OUTSIDE RECORDS SUMMARY | 2020-06-01 03:00 | XMS REPORT | Clinical Summary ---
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 Conditions or Problems Problem Name Problem Code Onset Date Status Entry Date Provider Comment Standard Description Annotate Back pain, lumbar, chronic 724.2 Active Hector Spencer DO Lumbago Medication List Medication Instructions Start Date Stop Date Generic Name NDC Status Provider Patient Instruction GABAPENTIN 100 MG ORAL CAPSULE 1 po q hs GABAPENT IN 76984356605 Active Cordelia Soliman Active CYMBALTA 60 MG ORAL CAPSULE DELAYED RELEASE PARTICLES 1 cap by mouth daily DULOXETINE HCL 37731860600 Active Cordelia Soliman Active CYMBALTA 30 MG ORAL CAPSULE DELAYED RELEASE PARTICLES 1 cap by mouth daily x 7 days DULOXETINE HCL 56120081679 Active Hector Spencer DO Active HYDROCODONE-ACETAMINOPHEN 5-325 MG ORAL TABLET 1 tab b y mouth every 6 hours as needed HYDROCODONE-ACETAMINOPHEN 65462522212 Active B adarsh Spencer DO Active Encounters Code Encounter Date Provider Facility CPT-54632 Level 3 New Patient 15:40:55 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
--- OUTSIDE RECORDS SUMMARY | 2020-06-01 03:00 | XMS REPORT ---
Author Author Kalyan Bustillo [facility] Address [address] [place], [place] [id number] Care Team Providers Care Electrode Cleaning Machine Operator Name Role Phone Luis Bustillo PCP Allergies and Adverse Reactions Name Reaction Notes Celexa Plan of Treatment Not available. Medications Active Name Start Date Estimated Completion Date SIG Co mments benztropine 1 mg oral tablet luis eduardo e 1 tablet (1 mg) by oral route 2 times per day buspirone 10 mg oral tablet take 1 tablet (10 mg) by oral route 2 times per day diazepam 5 mg oral tablet take 1 tablet (5 mg) by oral route 2 times per day divalproex 500 mg oral tablet,delayed release (DR/EC) take 1 tablet by oral route once a day (at bedtime) duloxetine 60 mg oral capsule,delayed release(DR/EC) take 1 capsule (60 mg) by oral route once daily famotidine 20 mg oral tablet luis eduardo e 1 tablet (20 mg) by oral route once daily at bedtime gabapentin 100 mg oral capsule t corby 1 capsule (100 mg) by oral route once daily glimepiride 2 mg oral tablet take 1 table t (2 mg) by oral route once daily Linzess 145 mcg oral capsule luis eduardo e 1 capsule (145 mcg) by oral route once daily on an empty stomach at least 30 minutes before 1st meal of the day naproxen 500 mg oral tablet take 1 tablet (500 mg) by oral route every 12 hours with food Invega Sustenna 156 mg/mL intramuscular syringe inject 1 milliliter (156 mg) by intramuscular route once a month tamsulosin 0.4 mg oral capsule t corby 1 capsule (0.4 mg) by oral route once daily 1/2 hour following the same meal each day tizanidine 2 mg oral tablet take 1 tablet (2 mg) by oral route once daily baclofen 20 mg oral tablet 06/28/2019 07/28/2019 take 1 tablet (20 mg) by oral route 3 times per day for 30 days Problem List Not available. Vital Signs Date Time BP-Sys(mm[Hg] BP-Carolyn(mm[Hg]) HR(bpm) RR(rpm) Temp WT HT HC BMI BSA BMI Percentile O2 Sat(%) 06/28/2019 11:34:00 AM 136 mm[Hg] 78 mm[Hg] 125 {beats}/min 98.9 F 235.375 lbs 67 in 36.8646 kg/m2 2.2466 m2 98 % 05/01/2019 3:32:00 PM 140 mm[Hg] 90 mm[Hg] 135 {beats}/min 98.1 F 225.437 lbs 67 in 35.31 kg/m2 2.20 m2 97 % Social History Name Description Comments Alcohol Never Tobacco Current every day smoker History of Procedures Date Ordered Description Order Status 05/10/2019 12:00 AM MRI LUMBAR SPINE W/O & W/DYE Returned 05/16/2019 12:00 AM METABOLIC PANEL TOTAL CA Returned Results Summary Not available. History Of Immunizations Not available. History of Past Illness Name Date of Onset Comments bipolar Schizophrenia Thyroid disease Diabetes Mechanical low back pain May 01 2019 3:47PM Failed back surgical syndrome May 01 2019 3:47PM Acquired spinal instability May 01 2019 3:47PM Diabetes May 16 2019 1:13PM Mechanical low back pain Jun 28 2019 11:36AM Failed back surgical syndrome Jun 28 2019 11:36AM Acquired spinal instability Jun 28 2019 11:36AM Spasm Jun 28 2019 11:36AM Payers Insurance Name Company Name Plan Name Plan Number Policy Number Joe cy Group Number Start Date Medicare Part B [employer] Of [place] [id number] N/A History of Encounters Visit Date Visit Type Provider 06/28/2019 Office visit Luis Bustillo DO 05/01/2019 Office visit Luis Bustillo DO
--- OUTSIDE RECORDS SUMMARY | 2020-06-01 03:00 | XMS REPORT | Clinical Summary ---
Author Author Admin, Kalyan Cardoza Organization 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 Conditions or Problems Problem Name Problem Code Onset Date Status Entry Date Provider Comment Standard Description Annotate Back pain, lumbar, chronic 724.2 Active Hector Spencer DO Lumbago Medication List Medication Instructions Start Date Stop Date Generic Name NDC Status Provider Patient Instruction GABAPENTIN 100 MG ORAL CAPSULE 1 po q hs GABAPENT IN 10853662397 Active Hector Spencer DO Active CYMBALTA 60 MG ORAL CAPSULE DELAYED RELEASE PARTICLES 1 cap by mouth daily DULOXETINE HCL 87497091826 Active Hector Spencer DO Active CYMBALTA 30 MG ORAL CAPSULE DELAYED RELEASE PARTICLES 1 cap by mouth daily x 7 days DULOXETINE HCL 73457115777 Active Hector Spencer DO Active HYDROCODONE-ACETAMINOPHEN 5-325 MG ORAL TABLET 1 tab b y mouth every 6 hours as needed HYDROCODONE-ACETAMINOPHEN 06224886627 Active B adarsh Spencer DO Active Vital Signs Date Name Value Unit Range Description blood pressure, diastolic 70 mm[Hg] BP wallis blood pressure, systolic 100 mm[Hg] BP sys height E&M 68 [in_us] Bdy height pulse rate E&M 107 /min Heart rate temperature E&M 98.8 [degF] Body temp erature weight E&M 213 [lb_av] Weight Measure d Encounters Code Encounter Date Provider Facility CPT-28671 Level 3 New Patient 15:40:55 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
--- OUTSIDE RECORDS SUMMARY | 2020-06-01 03:00 | XMS REPORT | Clinical Summary ---
Author Author Admin, Kalyan Cardoza Organization 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 Problem Name Problem Code Onset Date Status Entry Date Provider Comment Standard Description Annotate Back pain, lumbar, chronic 724.2 Active Hector Spencer DO Lumbago Medication List Medication Instructions Start Date Stop Date Generic Name NDC Status Provider Patient Instruction GABAPENTIN 100 MG ORAL CAPSULE 1 po q hs GABAPENT IN 52707528484 Active Cordelia Soliman Active CYMBALTA 60 MG ORAL CAPSULE DELAYED RELEASE PARTICLES 1 cap by mouth daily DULOXETINE HCL 09708139630 Active Cordelia Soliman Active CYMBALTA 30 MG ORAL CAPSULE DELAYED RELEASE PARTICLES 1 cap by mouth daily x 7 days DULOXETINE HCL 77880878110 Active Hector Spencer DO Active HYDROCODONE-ACETAMINOPHEN 5-325 MG ORAL TABLET 1 tab b y mouth every 6 hours as needed HYDROCODONE-ACETAMINOPHEN 57701272394 Active B adarsh Spencer DO Active Encounters Code Encounter Date Provider Facility CPT-72061 Level 3 New Patient 15:40:55 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
--- OUTSIDE RECORDS SUMMARY | 2020-06-01 03:00 | XMS REPORT | Clinical Summary ---
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 Conditions or Problems Problem Name Problem Code Onset Date Status Entry Date Provider Comment Standard Description Annotate Back pain, lumbar, chronic 724.2 Active Hector Spencer DO Lumbago Medication List Medication Instructions Start Date Stop Date Generic Name NDC Status Provider Patient Instruction GABAPENTIN 100 MG ORAL CAPSULE 1 po q hs GABAPENT IN 33542555920 Active Cordelia Soliman Active CYMBALTA 60 MG ORAL CAPSULE DELAYED RELEASE PARTICLES 1 cap by mouth daily DULOXETINE HCL 87901313657 Active Cordelia Soliman Active CYMBALTA 30 MG ORAL CAPSULE DELAYED RELEASE PARTICLES 1 cap by mouth daily x 7 days DULOXETINE HCL 06331483783 Active Hector Spencer DO Active HYDROCODONE-ACETAMINOPHEN 5-325 MG ORAL TABLET 1 tab b y mouth every 6 hours as needed HYDROCODONE-ACETAMINOPHEN 91454994571 Active B adarsh Spencer DO Active Encounters Code Encounter Date Provider Facility CPT-11860 Level 3 New Patient 15:40:55 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
--- OUTSIDE RECORDS SUMMARY | 2020-06-01 03:00 | XMS REPORT | Clinical Summary ---
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 Problem Name Problem Code Onset Date Status Entry Date Provider Comment Standard Description Annotate Back pain, lumbar, chronic 724.2 Active Hector Spencer DO Lumbago Medication List Medication Instructions Start Date Stop Date Generic Name NDC Status Provider Patient Instruction GABAPENTIN 100 MG ORAL CAPSULE 1 po q hs GABAPENT IN 57659733537 Active Cordelia Soliman Active CYMBALTA 60 MG ORAL CAPSULE DELAYED RELEASE PARTICLES 1 cap by mouth daily DULOXETINE HCL 52382781071 Active Cordelia Soliman Active CYMBALTA 30 MG ORAL CAPSULE DELAYED RELEASE PARTICLES 1 cap by mouth daily x 7 days DULOXETINE HCL 46262112092 Active Hector Spencer DO Active HYDROCODONE-ACETAMINOPHEN 5-325 MG ORAL TABLET 1 tab b y mouth every 6 hours as needed HYDROCODONE-ACETAMINOPHEN 18128642556 Active B adarsh Spencer DO Active Vital Signs Date Name Value Unit Range Description blood pressure, diastolic 70 mm[Hg] BP wallis blood pressure, systolic 100 mm[Hg] BP sys height E&M 68 [in_us] Bdy height pulse rate E&M 107 /min Heart rate temperature E&M 98.8 [degF] Body temp erature weight E&M 213 [lb_av] Weight Measure d Encounters Code Encounter Date Provider Facility CPT-63621 Level 3 New Patient 15:40:55 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
--- OUTSIDE RECORDS SUMMARY | 2020-06-01 03:00 | XMS REPORT | Clinical Summary ---
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 Conditions or Problems Problem Name Problem Code Onset Date Status Entry Date Provider Comment Standard Description Annotate Back pain, lumbar, chronic 724.2 Active Hector Spencer DO Lumbago Medication List Medication Instructions Start Date Stop Date Generic Name NDC Status Provider Patient Instruction GABAPENTIN 100 MG ORAL CAPSULE 1 po q hs GABAPENT IN 44420531880 Active Cordelia Soliman Active CYMBALTA 60 MG ORAL CAPSULE DELAYED RELEASE PARTICLES 1 cap by mouth daily DULOXETINE HCL 83521852635 Active Cordelia Soliman Active CYMBALTA 30 MG ORAL CAPSULE DELAYED RELEASE PARTICLES 1 cap by mouth daily x 7 days DULOXETINE HCL 20868464029 Active Hector Spencer DO Active HYDROCODONE-ACETAMINOPHEN 5-325 MG ORAL TABLET 1 tab b y mouth every 6 hours as needed HYDROCODONE-ACETAMINOPHEN 28528662358 Active B adarsh Spencer DO Active Encounters Code Encounter Date Provider Facility CPT-67763 Level 3 New Patient 15:40:55 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
--- OUTSIDE RECORDS SUMMARY | 2020-06-01 03:01 | XMS REPORT ---
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 Floor Leader Name Role Phone USMAN LEES Unavailable PROBLEMS Type Condition ICD9-CM Code XTX12-TL Code Onset Dates Condition S tatus SNOMED Code Problem Type 2 diabetes mellitus wit hout complication, without long-term current use of insulin E11.9 Active 055814344 Problem Other chronic pain G89.29 Active 8 1645580 Problem Family history of prostate cancer in father Z80.42 Active 411181866 Problem Hx of partial thyroidectomy Z98.890 Ac tive 868669409 Problem Chronic obstructive pulmonary disease, unspecified COPD ty pe J44.9 Active 77320696 Problem Schizoaffective disorder, unspecified type F25.9 Active 58080374 Problem Constipation due to pain medication K59.03 Active 42766807 Problem Inflammatory spondylopathy of lumbar region M46.96 Active [id number] ALLERGIES No Information ENCOUNTERS Encounter Location Date Diagnosis [facility] [address] [place] [address] Aug, 18 [facility] [address] [place] [address] 10 Jul, 18 [facility] [address] [place] [address] 05 Jul, 18 Effusion, left knee M25.462 [facility] [address] [place] [address] 05 Jul, 18 Chronic obstructive pulmonary disease, unspecified COPD type J44.9 [facility] [address] [place] [address] 24 Jun, 18 Type 2 diabetes mellitus without complication, without long-term current use of insulin E11.9 ; Family history of prostate cancer in father Z80.42 and Hx of partial thyroidectomy Z98.890 [facility] [address] [place] [address] May, 18 Constipation due to pain medication K59.03 ; Chronic obstructive pulmonary disease, unspecified COPD type J44.9 ; Type 2 diabetes mellitus without complication, without long-term current use of insulin E11.9 and Other chronic pain G89.29 [facility] [address] [place] [address] 30 Apr, 18 Other chronic pain G89.29 and Constipation due to pain medication K59.03 [place] [id number] [place] [phone] Apr, [facility] [address] [place] [address] Apr, [address] [address] Apr, [address] [address] Apr, 18 [facility] [address] [place] [address] Apr, 18 Other chronic pain G89.29 ; Insect bite (nonvenomous) of left upper arm, subsequent encounter S40.862D and Insect bite, subsequent encounter W57.XXXD [place] [id number] [place] [address] Mar, [facility] [address] [address] Mar, 18 Constipation due to pain medication K59.[address] [address] Mar, 18 Type 2 diabetes mellitus without complication, without long-term current use of insulin E11.9 ; Chronic obstructive pulmonary disease, unspecified COPD type J44.9 ; Other chronic pain G89.29 and Constipation due to pain medication K59.[address] [address] February, 18 [place] [id number] [place] [address] Jan, [facility] [address] [place] [address] Jan, 18 Chronic obstructive pulmonary disease, unspecified COPD type J44.9 ; Other chronic pain G89.29 ; Type 2 diabetes mellitus without complication, without long-term current use of insulin E11.9 ; Insect bite (nonvenomous) of left upper arm, initial encounter S40.862A and Bedbug bite, initial encounter W57.XXXA [address] [address] Jan, [address] [address] Jan, [facility] [address] [address] Dec, 18 Other chronic pain G89.29 ; Schizoaffective disorder, unspecified type F25.9 ; Inflammatory spondylopathy of lumbar region M46.96 and Chronic obstructive pulmonary disease, unspecified COPD type J44.9 [facility] [address] [address] 28 Nov, 18 Other chronic pain G89.29 [facility] [address] [address] Oct, 18 Low back pain M54.5 and Type 2 diabetes mellitus without complication, without long-term current use of insulin E11.[address] [address] Oct, 18 Low back pain M54.5 ; Other chronic pain G89.29 and Type 2 diabetes mellitus without complication, without long-term current use of insulin E11.[address] [address] 05 Jan, 16 Dental examination Z01.20 [place] [id number] [address] [place] [address] Sep, [place] [id number] [address] [place] [address] Jul, IMMUNIZATIONS No Known Immunizations SOCIAL HISTORY Never Assessed REASON FOR VISIT PLAN OF CARE VITAL SIGNS MEDICATIONS Unknown Medications RESULTS No Results PROCEDURES No Known procedures INSTRUCTIONS MEDICATIONS ADMINISTERED No Known Medications MEDICAL (GENERAL) HISTORY Type Description Date Medical History THYROID PROBLEMS Medical History DIABETES Medical History Bipolar Medical History Schizophrenia Surgical History Rods placed in back 02/2017 Surgical History Rods removed from back s/p infection 2016 Surgical History carpal tunnel release Surgical History cholecystectomy Hospitalization History Back surgery
--- OUTSIDE RECORDS SUMMARY | 2020-06-01 03:01 | XMS REPORT ---
Author Author Kalyan LEES Organization 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 Role Phone USMAN LEES Unavailable PROBLEMS Type Condition ICD9-CM Code ELM71-HQ Code Onset Dates Condition S tatus SNOMED Code Problem Type 2 diabetes mellitus wit hout complication, without long-term current use of insulin E11.9 Active 250959311 Problem Other chronic pain G89.29 Active 8 0188557 Problem Family history of prostate cancer in father Z80.42 Active 165763513 Problem Hx of partial thyroidectomy Z98.890 Ac tive 003496557 Problem Chronic obstructive pulmonary disease, unspecified COPD ty pe J44.9 Active 76379180 Problem Schizoaffective disorder, unspecified type F25.9 Active 95219902 Problem Constipation due to pain medication K59.03 Active 13287513 Problem Inflammatory spondylopathy of lumbar region M46.96 Active 352590900 ALLERGIES No Information ENCOUNTERS Encounter Location Date Diagnosis [address] [place] [address] Aug, [facility] [address] [place] [address] Aug, 18 Chronic obstructive pulmonary disease, unspecified COPD type J44.9 [facility] [address] [place], [place] [id number] [address] [place] [address] Jul, [facility] [address] [place] [address] Jul, [address] [facility] [address] [place] [address] Jul, 18 Effusion, left knee M25.[address] [facility] [address] [place] [address] Jul, 18 Chronic obstructive pulmonary disease, unspecified COPD type J44.[address] [facility] [address] [place] [address] 24 Jun, 18 Type 2 diabetes mellitus without complication, without long-term current use of insulin E11.9 ; Family history of prostate cancer in father Z80.42 and Hx of partial thyroidectomy Z98.[address] [place] [address] May, 18 Constipation due to pain medication K59.03 ; Chronic obstructive pulmonary disease, unspecified COPD type J44.9 ; Type 2 diabetes mellitus without complication, without long-term current use of insulin E11.9 and Other chronic pain G89.[address] [address] 30 Apr, 18 Other chronic pain G89.29 and Constipation due to pain medication K59.03 [place] [id number] [address] Apr, [address] [address] Apr, [address] [address] Apr, [address] [address] Apr, [address] [address] Apr, 18 Other chronic pain G89.29 ; Insect bite (nonvenomous) of left upper arm, subsequent encounter S40.862D and Insect bite, subsequent encounter W57.XXXD [id number] [address] [address] Mar, [address] [address] Mar, 18 Constipation due to pain medication K59.[address] [address] 04 Mar, 18 Type 2 diabetes mellitus without complication, without long-term current use of insulin E11.9 ; Chronic obstructive pulmonary disease, unspecified COPD type J44.9 ; Other chronic pain G89.29 and Constipation due to pain medication K59.03 [facility] [address] [place] [address] February, 18 [place] [id number] [place] [address] Jan, [address] [address] Jan, 18 Chronic obstructive pulmonary disease, unspecified COPD type J44.9 ; Other chronic pain G89.29 ; Type 2 diabetes mellitus without complication, without long-term current use of insulin E11.9 ; Insect bite (nonvenomous) of left upper arm, initial encounter S40.862A and Bedbug bite, initial encounter W57.XXXA [place] [id number] [place] [address] Jan, [address] [address] Jan, [facility] [address] [place] [address] Dec, 18 Other chronic pain G89.29 ; Schizoaffective disorder, unspecified type F25.9 ; Inflammatory spondylopathy of lumbar region M46.96 and Chronic obstructive pulmonary disease, unspecified COPD type J44.9 [facility] [address] [place] [address] Nov, 18 Other chronic pain G89.[address] [address] Oct, 18 Low back pain M54.5 and Type 2 diabetes mellitus without complication, without long-term current use of insulin E11.[address] [address] Oct, 18 Low back pain M54.5 ; Other chronic pain G89.29 and Type 2 diabetes mellitus without complication, without long-term current use of insulin E11.9 [facility] [address] [place] [address] Jan, 16 Dental examination Z01.20 [facility] [address] [facility] [id number] [address] [place] [phone] Sep, [facility] [address] [facility] [id number] [address] [place] [address] Jul, IMMUNIZATIONS No Known Immunizations SOCIAL HISTORY Never Assessed REASON FOR VISIT [facility] call PLAN OF CARE VITAL SIGNS MEDICATIONS Unknown [...]
--- OUTSIDE RECORDS SUMMARY | 2020-06-01 03:01 | XMS REPORT ---
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 Medications Active Name Start Date Estimated Completion Date SIG Co mments baclofen 10 mg oral tablet take 1 tablet (10 mg) by oral route 3 times per day benztropine 1 mg oral tablet luis eduardo [...] (2 mg) by oral route once daily Problem List Not available. Vital Signs Date Time BP-Sys(mm[Hg] BP-Carolyn(mm[Hg]) HR(bpm) RR(rpm) Temp WT HT HC BMI BSA BMI Percentile O2 Sat(%) 05/01/2019 3:32:00 PM 140 mmHg 90 mmHg 135 bpm 98.1 F 225.437 lbs 67 i n 35.3081 kg/m 2.1986 m 97 % Social History Name Description Comments Alcohol Never Tobacco Current every day smoker History of Procedures Not available. Results Summary Not available. History Of Immunizations Not available. History of Past Illness Name Date of Onset Comments bipolar Schizophrenia Thyroid disease Diabetes Mechanical low back pain May 01 2019 3:47PM Failed back surgical syndrome May 01 2019 3:47PM Acquired spinal instability May 01 2019 3:47PM Payers Insurance Name Company Name Plan Name Plan Number Policy Number Joe cy Group Number Start Date Medicare Part B Medicare Of [place] [id number] N/A History of Encounters Visit Date Visit Type Provider 05/01/2019 Office visit Luis Bustillo DO
--- OUTSIDE RECORDS SUMMARY | 2020-06-01 03:01 | XMS REPORT ---
Author Author Kalyan LEES Organization [facility] [address] Address [address] [place] [address] Care Team Providers Care Motor Equipment Commanding Officer Name Role Phone USMAN LEES Unavailable PROBLEMS Type Condition ICD9-CM Code [id number] Code Onset Dates Condition S tatus SNOMED Code Problem Type 2 diabetes mellitus wit hout complication, without long-term current use of insulin E11.9 Active 657418762 Problem Other chronic pain G89.29 Active 8 7005746 Problem Type 2 diabetes mellitus wit h other specified complication, without long-term current use of insulin E11.69 Active 93532570 Problem Gastroesophageal reflux disease, esophagitis pre sence not specified K21.9 Active 922170380 Problem Chronic obstructive pulmonary disease, unspecified COPD ty pe J44.9 Active 13795708 Problem Schizoaffective disorder, unspecified type F25.9 Active 42124534 Problem Inflammatory spondylopathy of lumbar region M46.96 Active 591743169 Problem 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 [place] [address] Mar, 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 [address] [place] [phone] Oct, 19 Type 2 diabetes mellitus without complication, without long-term current use of insulin E11.9 ; Encounter for immunization Z23 and Other chronic pain G89.29 [facility] [address] [place] [phone] Sep, 18 Other chronic pain G89.29 [place] [id number] [place] [address] Aug, [facility] [address] [place] [address] Aug, 18 Chronic obstructive pulmonary disease, unspecified COPD type J44.9 [place] [id number] [place] [address] Jul, [facility] [address] [place] [address] Jul, [facility] [address] [place] [address] Jul, 18 Effusion, left knee M25.[address] [facility] [address] [place] [phone] Jul, 18 Chronic obstructive pulmonary disease, unspecified COPD type J44.9 [facility] [address] [place] [address] Jun, 18 Type 2 diabetes mellitus without complication, without long-term current use of insulin E11.9 ; Family history of prostate cancer in father Z80.42 and Hx of partial thyroidectomy Z98.[address] [facility] [address] [place] [phone] May, 18 Constipation due to pain medication K59.03 ; Chronic obstructive pulmonary disease, unspecified COPD type J44.9 ; Type 2 diabetes mellitus without complication, without long-term current use of insulin E11.9 and Other chronic pain G89.29 [facility] [address] [place] [address] Apr, 18 Other chronic pain G89.29 and Constipation due to pain medication K59.03 [place] [id number] [place] [address] Apr, [facility] [place] [address] [place] [address] Apr, 18 [facility] [place] [address] [place] [address] Apr, 18 [facility] [place] [address] [place] [address] Apr, 18 [facility] [place] [address] [place] [address] Apr, 18 Other chronic pain G89.29 ; Insect bite (nonvenomous) of left upper arm, subsequent encounter S40.862D and Insect bite, subsequent encounter W57.XXXD [address] [address] Mar, [facility] [place] [address] [place] [address] Mar, 18 Constipation due to pain medication K59.03 [facility] [place] [address] [place] [address] Mar, 18 Type 2 diabetes mellitus without complication, without long-term current use of insulin E11.9 ; Chronic obstructive pulmonary disease, unspecified COPD type J44.9 ; Other chronic pain G89.29 and Constipation due to pain medication K59.03 [facility] [address] [address] February, [address] [address] Jan, [address] [address] Jan, 18 Chronic obstructive pulmonary disease, unspecified COPD type J44.9 ; Other chronic pain G89.29 ; Type 2 diabetes mellitus without complication, without long-term current use of insulin E11.9 ; Insect bite (nonvenomous) of left upper arm, initial encounter S40.862A and Bedbug bite, initial encounter W57.XXXA [address] [address] Jan, [address] [address] Jan, [address] [place] [address] Dec, 18 Other chronic pain G89.29 ; Schizoaffective disorder, unspecified type F25.9 ; Inflammatory spondylopathy of lumbar region M46.96 and Chronic obstructive pulmonary disease, unspecified COPD type J44.[address] [address] Nov, 18 Other chronic pain G89.[address] [address] Oct, 18 Low back pain M54.5 and Type 2 diabetes mellitus without complication, without long-term current use of insulin E11.[address] [address] Oct, 18 Low back pain M54.5 ; Other chronic pain G89.29 and Type 2 diabetes mellitus without complication, without long-term current use of insulin E11.[address] [address] Jan, 16 Dental examination Z01.[address] [id number] [address] [place] [address] Sep, [address] [id number] [address] [place] [address] Jul, IMMUNIZATIONS No Known Immunizations SOCIAL HISTORY Never Assessed REASON FOR VISIT pain to back follow up from ER triciat Chapin Whatley RN PLAN OF CARE Activity Details Follow Up 4 Weeks Reason:back pain, VITAL SIGNS Height 68 in 2019-01-02 Weight 224 lbs 2019-01-02 Temperature 97.2 degrees Fahrenheit 2019-01-02 Heart Rate 129 bpm 2019-01-02 Respiratory Rate 18 2019-01-02 BMI 34.06 kg/m2 2019-01-02 Blood pressure systolic 124 mmHg 2019-01-02 Blood pressure diastolic 78 mmHg 2019-01-02 MEDICATIONS Medication Instructions Dosage Frequency Start Date End Date Duration S tatus Diazepam 5 MG Orally Twice a day PRN anxiety 1 tablet as needed Active Divalproex Sodium ER 500 MG TAKE 1 TABLET BY MOUTH DAILY AT BEDT TIARRA 176 Active Baclofen 10 MG TAKE 1 TABLET WITH FOOD OR MILK THREE TIMES A DAY ORALLY 30 Active Famotidine 20 mg TAKE 1 TABLET BY MOUTH DAILY Active Linzess 145 MCG Orally Once a day 1 capsule 24h 30 Active Duloxetine HCl 60 MG Orally Once a day 1 capsule 24h Active Triamcinolone Acetonide 0.1 % Externally Twice a day 1 appli cation to affected area 12h Active Crutches-Aluminum - as directed Jul, 1 d ays Not-Taking Back Support Back stabilizer as directed 24h Sep, daily Active Tizanidine HCl 2 MG Orally Three times a day 1 tablet as needed 8h 18 Oct, 2018 Active Paliperidone Palmitate 156 MG/ML Intramuscular once monthly 1 ml Active Glimepiride 2 MG TAKE 1 TABLET BY MOUTH DAILY IN THE MORNING Active Naprosyn 500 MG Orally every 12 hrs 1 tablet with food or milk as nee ded 12h Active BusPIRone HCl 10 mg Orally 2 times a day nerves 1 tablet Active Benztropine Mesylate 1 MG Orally 2 times a day 1 tablet 12h Active Gabapentin 100 mg 1 capsule before bedtime Active Oxycodone HCl 5 MG Orally every 6-8 hrs 1 tablet as needed 24 2018 Active Tamsulosin HCl 0.4 MG Orally Once a day 1 capsule 24h Not-Taking RESULTS No Results PROCEDURES Procedure Date Ordered Result Body Site [facility] VISIT ESTABLISHED PATIENT January 02, 2019 INSTRUCTIONS MEDICATIONS ADMINISTERED No Known Medications MEDICAL (GENERAL) HISTORY Type Description Date Medical History THYROID PROBLEMS Medical History DIABETES Medical History Bipolar Medical History Schizophrenia Medical History Hx of partial thyroidectomy Medical History Family history of prostate cancer in fat her Surgical History Rods placed in back 02/2017 Surgical History Rods removed from back s/p infection 2016 Surgical History carpal tunnel release Surgical History cholecystectomy Hospitalization History Back surgery
--- OUTSIDE RECORDS SUMMARY | 2020-06-01 03:01 | XMS REPORT ---
Author Author Kalyan LEES Organization [facility] [address] Address [address] [place] [address] Care Team Providers Care Podiatrist Name Role Phone USMAN LEES Unavailable PROBLEMS Type Condition ICD9-CM Code [id number] Code Onset Dates Condition S tatus SNOMED Code Problem Other chronic pain G89.29 Active 8 5552992 Problem Type 2 diabetes mellitus wit h other specified complication, without long-term current use of insulin E11.69 Active 45012511 Problem Gastroesophageal reflux disease, esophagitis pre sence not specified K21.9 Active 524065138 Problem Chronic obstructive pulmonary disease, unspecified COPD ty pe J44.9 Active 94009425 Problem Schizoaffective disorder, unspecified type F25.9 Active 69605837 Problem Inflammatory spondylopathy of lumbar region M46.96 Active 674834628 Problem 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 Active [id number] ALLERGIES No Information ENCOUNTERS Encounter Location Date Diagnosis [facility] [address] [id number] [place] [address] Sep, [facility] [address] [place] [address] [address] Sep, Tachycardia R00.0 [facility] [address] [place] [address] [place] [address] [address] Sep, [facility] [address] [facility] [address] [place] [address] [address] Sep, [facility] [address] [place] [address] [address] Sep, [facility] [address] [place] [address] [address] Sep, [facility] [address] [place] [address] [place] [address] [address] Sep, Schizoaffective disorder, unspecified type F25.9 [facility] [address] [place] [address] [address] Sep, [facility] [address] [place] [id number] [place] [address] Aug, [facility] [address] [place] [address] [address] Aug, Type 2 diabetes mellitus without complication, without long-term current use of insulin E11.9 ; Chronic obstructive pulmonary disease, unspecified COPD type J44.9 and Other chronic pain G89.29 [facility] [address] [place] [address] [address] Jul, Schizoaffective disorder, unspecified type F25.9 [facility] [address] [place] [address] [address] Jul, [place] [id number] [place] [address] Jul, [facility] [address] [place] [address] [address] Jul, Other chronic pain G89.29 ; Encounter for immunization Z23 and Low back pain M54.5 [place] [id number] [place] [address] Jun, [facility] [address] [place] [address] [address] Jun, [facility] [address] [place] [address] [address] Jun, nursing home use of drug Z79.899 ; Other chronic pain G89.29 ; Low back pain M54.5 ; Pain in left shoulder M25.512 ; Schizoaffective disorder, unspecified type F25.9 and Tobacco abuse disorder Z72.0 [facility] [address] [place] [address] [address] 05 Jun, 2019 [facility] [address] [place] [id number] [address] May, Pain in right shoulder M25.511 [place] [id number] [place] [address] May, [facility] [address] [place] [address] [address] May, [facility] [address] [place] [address] [address] May, Type 2 diabetes mellitus without complication, without long-term current use of insulin E11.9 ; Other chronic pain G89.29 and 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 [place] [id number] [place] [address] Apr, [place] [address] Apr, [facility] [address] [place] [address] [address] Mar, Encounter for Medicare annual wellness exam [...] reflux disease, esophagitis presence not specified K21.9 [facility] [address] [place] [address] [address] Mar, [place] [address] February, Other chronic pain G89.29 and 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 [place] [id number] [place] [address] February, [place] [address] [place] [address] Jan, [facility] [place] [address] [place] [address] [address] Jan, Type 2 diabetes mellitus without complication, without long-term current use of insulin E11.9 ; Other chronic pain G89.29 ; Pain in right shoulder M25.511 ; Pain in left shoulder M25.512 ; Type 2 diabetes mellitus with other specified complication, without long-term current use of insulin E11.69 and 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 [address] [place] [address] Dec, [facility] [address] [place] [address] Dec, Type 2 diabetes mellitus without complication, without long-term current use of insulin E11.9 and Inflammatory spondylopathy of lumbar region M46.96 [facility] [address] [place] [address] [address] Nov, [address] [place] [address] Oct, [address] [address] Oct, Type 2 diabetes mellitus without complication, without long-term current use of insulin E11.9 ; Encounter for immunization Z23 and Other chronic pain G89.29 [facility] [address] [place] [address] [address] Sep, Other chronic pain G89.29 [address] [place] [address] Aug, [id number] [address] Aug, Chronic obstructive pulmonary disease, unspecified COPD type J44.9 [address] [place] [address] 16 Jul, 2018 [place] [address] Jul, [facility] [address] [place] [address] [address] Jul, Effusion, left knee M25.462 [place] [address] Jul, Chronic obstructive pulmonary disease, unspecified COPD type J44.9 [place] [id number] [place] [address] Jun, Type 2 diabetes mellitus without complication, without long-term current use of insulin E11.9 ; Family history of prostate cancer in father Z80.42 and Hx of partial thyroidectomy Z98.890 [place] [address] May, Constipation due to pain medication K59.03 ; Chronic obstructive pulmonary disease, unspecified COPD type J44.9 ; Type 2 diabetes mellitus without complication, without long-term current use of insulin E11.9 and Other chronic pain G89.29 [place] [id number] [place] [address] Apr, Other chronic pain G89.29 and Constipation due to pain medication K59.03 [place] [id number] [place] [address] Apr, [facility] [address] [address] Apr, 18 [facility] [address] [address] Apr, [address] [facility] [address] [address] Apr, [address] [facility] [address] [address] Apr, 18 Other chronic pain G89.29 ; Insect bite (nonvenomous) of left upper arm, subsequent encounter S40.862D and Insect bite, subsequent encounter W57.XXXD [address] [address] Mar, [facility] [place] [address] [place] [address] Mar, 18 Constipation due to pain medication K59.[address] [address] Mar, 18 Type 2 diabetes mellitus without complication, without long-term current use of insulin E11.9 ; Chronic obstructive pulmonary disease, unspecified COPD type J44.9 ; Other chronic pain G89.29 and Constipation due to pain medication K59.[address] [address] February, [address] [address] Jan, [address] [address] Jan, 18 Chronic obstructive pulmonary disease, unspecified COPD type J44.9 ; Other chronic pain G89.29 ; Type 2 diabetes mellitus without complication, without long-term current use of insulin E11.9 ; Insect bite (nonvenomous) of left upper arm, initial encounter S40.862A and Bedbug bite, initial encounter W57.XXXA [address] [address] Jan, [address] [address] Jan, [address] [address] Dec, 18 Other chronic pain G89.29 ; Schizoaffective disorder, unspecified type F25.9 ; Inflammatory spondylopathy of lumbar region M46.96 and Chronic obstructive pulmonary disease, unspecified COPD type J44.[address] [address] Nov, 18 Other chronic pain G89.[address] [address] Oct, 18 Low back pain M54.5 and Type 2 diabetes mellitus without complication, without long-term current use of insulin E11.9 [facility] [place] [address] [place] [address] Oct, 18 Low back pain M54.5 ; Other chronic pain G89.29 and Type 2 diabetes mellitus without complication, without long-term current use of insulin E11.9 [facility] [place] [address] [place] [address] 05 Jan, 16 Dental examination Z01.20 [facility] [address] [place] [id number] [place] [address] Sep, [facility] [address] [facility] [place] [address] 15 Jul, 2009 IMMUNIZATIONS No Known Immunizations SOCIAL HISTORY Never Assessed REASON FOR VISIT [facility] call PLAN OF CARE VITAL SIGNS MEDICATIONS Unknown Medications RESULTS No Results PROCEDURES No Known procedures INSTRUCTIONS MEDICATIONS ADMINISTERED No Known Medications MEDICAL (GENERAL) HISTORY Type Description Date Medical History THYROID PROBLEMS Medical History DIABETES Medical History Bipolar Medical History Schizophrenia Medical History Hx of partial thyroidectomy Medical History Family history of prostate cancer in fat her Medical History Type 2 diabetes mellitus wit hout complication, without long-term current use of insulin Surgical History Rods placed in back 02/2017 Surgical History Rods removed from back s/p infection 2016 Surgical History carpal tunnel release Surgical History cholecystectomy Hospitalization History Back surgery
--- OUTSIDE RECORDS SUMMARY | 2020-06-01 03:01 | XMS REPORT ---
Author Author Kalyan Bustillo [facility] Address [address] [place], [place] [id number] Care Team Providers Care Picker Box Operator Name Role Phone Luis Bustillo PCP [...] Date Medicare Part B [place] [id number] N/A History of Encounters Visit Date Visit Type Provider 05/01/2019 Office visit Luis Bustillo DO
--- OUTSIDE RECORDS SUMMARY | 2020-06-01 03:01 | XMS REPORT ---
Author Author Kalyan Bustillo [facility] Address [address] [place], [place] [id number] Care Team Providers Care Paradichlorobenzene Tender Name Role Phone Luis Bustillo PCP Allergies and Adverse Reactions Name Reaction Notes Celexa Plan of Treatment Planned Activity Comments Planned Date Planned Time Plan/Goal MRI LUMBAR W/WO CONTRAST 05/10/2019 12:00 AM BMP 05/16/2019 12:00 AM Medications Active Name Start Date Estimated Completion [...] 2019 3:47PM Diabetes May 16 2019 1:13PM Payers Insurance Name Company Name Plan Name Plan Number Policy Number Joe cy Group Number Start Date Medicare Part B [place] [id number] N/A History of Encounters Visit Date Visit Type Provider 05/01/2019 Office visit Luis Bustillo DO
--- OUTSIDE RECORDS SUMMARY | 2020-06-01 03:01 | XMS REPORT ---
Author Author Kalyan Bustillo [facility] Address [address] [place], [place] [address] Care Team Providers Care Interior Horticulturist Name Role Phone Luis Bustillo PCP Allergies [...] Date Medicare Part B Medicare [place] [id number] N/A History of Encounters Visit Date Visit Type Provider 05/01/2019 Office visit Luis Bustillo DO
--- OUTSIDE RECORDS SUMMARY | 2020-06-01 03:01 | XMS REPORT ---
Author Author Kalyan Bustillo [facility] Address [address] [place], [place] [address] Care Team Providers Care Typewriter Mechanic Name Role Phone Luis Bustillo PCP Allergies and Adverse Reactions Name Reaction Notes Celexa Plan of Treatment Planned Activity Comments Planned Date Planned Time Plan/Goal MRI LUMBAR W/WO CONTRAST 05/10/2019 12:00 AM Medications Active Name Start Date [...] Date Medicare Part B Medicare Of [place] [id number] N/A History of Encounters Visit Date Visit Type Provider 05/01/2019 Office visit Luis Bustillo DO
--- OUTSIDE RECORDS SUMMARY | 2020-06-01 03:01 | XMS REPORT ---
Author Author Kalyan ROONEY Organization [facility] [address] Address [address] [place] [address] Care Team Providers Care Animal Nutrition Consultant Name Role Phone LETTY ROONEY Unavailable PROBLEMS Type Condition ICD9-CM Code VVX35-TC Code Onset Dates Condition S tatus SNOMED Code Problem Type 2 diabetes mellitus wit hout complication, without long-term current use of insulin E11.9 Active 004908098 Problem Other chronic pain G89.29 Active 8 1667663 Problem Family history of prostate cancer in father Z80.42 Active 927055749 Problem Hx of partial thyroidectomy Z98.890 Ac tive 161278996 Problem Chronic obstructive pulmonary disease, unspecified COPD ty pe J44.9 Active 77891249 Problem Schizoaffective disorder, unspecified type F25.9 Active 27879741 Problem Constipation due to pain medication K59.03 Active 30802125 Problem Inflammatory spondylopathy of lumbar region M46.96 Active 893949560 ALLERGIES No Information ENCOUNTERS Encounter Location Date Diagnosis [facility] [address] [place] [address] Aug, 18 [facility] [address] [place] [address] 10 Jul, 18 [facility] [address] [place] [address] 05 Jul, 18 Effusion, left knee M25.462 [facility] [address] [place] [address] 05 Jul, 18 Chronic obstructive pulmonary disease, unspecified COPD type J44.9 [facility] [address] [place] [address] 24 Jun, 18 Type 2 diabetes mellitus without complication, without long-term current use of insulin E11.9 ; Family history of prostate cancer in father Z80.42 and Hx of partial thyroidectomy Z98.890 [facility] [address] [place] [address] May, 18 Constipation due to pain medication K59.03 ; Chronic obstructive pulmonary disease, unspecified COPD type J44.9 ; Type 2 diabetes mellitus without complication, without long-term current use of insulin E11.9 and Other chronic pain G89.29 [facility] [address] [place] [address] Apr, 18 Other chronic pain G89.29 and Constipation due to pain medication K59.03 [place] [id number] [address] [place] [address] Apr, [facility] [address] [place] [address] Apr, [address] [address] Apr, [address] [address] Apr, [address] [address] Apr, 18 Other chronic pain G89.29 ; Insect bite (nonvenomous) of left upper arm, subsequent encounter S40.862D and Insect bite, subsequent encounter W57.XXXD [place] [id number] [address] [place] [address] Mar, [facility] [address] [address] Mar, 18 Constipation due to pain medication K59.[address] [address] Mar, 18 Type 2 diabetes mellitus without complication, without long-term current use of insulin E11.9 ; Chronic obstructive pulmonary disease, unspecified COPD type J44.9 ; Other chronic pain G89.29 and Constipation due to pain medication K59.03 [facility] [place] [address] [place] [address] February, 18 [place] [id number] [address] [place] [address] Jan, [facility] [address] [address] [place] [address] Jan, 18 Chronic obstructive pulmonary disease, unspecified COPD type J44.9 ; Other chronic pain G89.29 ; Type 2 diabetes mellitus without complication, without long-term current use of insulin E11.9 ; Insect bite (nonvenomous) of left upper arm, initial encounter S40.862A and Bedbug bite, initial encounter W57.XXXA [place] [id number] [address] [place] [address] Jan, [address] [address] Jan, [facility] [address] [address] Dec, 18 Other chronic pain G89.29 ; Schizoaffective disorder, unspecified type F25.9 ; Inflammatory spondylopathy of lumbar region M46.96 and Chronic obstructive pulmonary disease, unspecified COPD type J44.[address] [address] Nov, 18 Other chronic pain G89.[address] [address] Oct, 18 Low back pain M54.5 and Type 2 diabetes mellitus without complication, without long-term current use of insulin E11.[address] [address] Oct, 18 Low back pain M54.5 ; Other chronic pain G89.29 and Type 2 diabetes mellitus without complication, without long-term current use of insulin E11.[address] [address] 05 Jan, 16 Dental examination Z01.20 [place] [id number] [address] [place] [address] Sep, [place] [id number] [address] [place] [address] Jul, IMMUNIZATIONS No Known Immunizations SOCIAL HISTORY Never Assessed REASON FOR VISIT refill medication PLAN OF CARE VITAL SIGNS MEDICATIONS Medication Instructions Dosage Frequency Start Date End Date Duration S tatus Clonazepam 1 MG Orally 2 times a day 1 tablet 12h Active RESULTS No Results PROCEDURES No Known procedures [...]
--- OUTSIDE RECORDS SUMMARY | 2020-06-01 03:02 | XMS REPORT ---
Author Author Kalyan LEES Organization [facility] [address] Address [address] [place] [address] Care Team Providers Care Vocational Nurse Name Role Phone USMAN LEES Unavailable PROBLEMS Type Condition ICD9-CM Code BKN75-XR Code Onset Dates Condition S tatus SNOMED Code Problem Constipation due to pain medication K59.03 Active 02043517 Problem Inflammatory spondylopathy of lumbar region M46.96 Active 161661112 Problem Type 2 diabetes mellitus wit hout complication, without long-term current use of insulin E11.9 Active 122414663 Problem Other chronic pain G89.29 Active 8 2030777 Problem Chronic obstructive pulmonary disease, unspecified COPD ty pe J44.9 Active 32100013 Problem Schizoaffective disorder, unspecified type F25.9 Active 76004490 ALLERGIES No Information ENCOUNTERS Encounter Location Date Diagnosis [facility] [address] [place] [address] Jun, [facility] [address] [place] [address] May, 18 Constipation due to pain medication K59.03 ; Chronic obstructive pulmonary disease, unspecified COPD type J44.9 ; Type 2 diabetes mellitus without complication, without long-term current use of insulin E11.9 and Other chronic pain G89.29 [facility] [address] [place] [address] Apr, 18 Other chronic pain G89.29 and Constipation due to pain medication K59.03 [facility] [address] [facility] [id number] [address] [place] [address] Apr, [facility] [address] [place] [address] Apr, 18 [facility] [address] [place] [address] Apr, [address] [address] Apr, [address] [address] Apr, 18 Other chronic pain G89.29 ; Insect bite (nonvenomous) of left upper arm, subsequent encounter S40.862D and Insect bite, subsequent encounter W57.XXXD [address] [address] Mar, [address] [address] Mar, 18 Constipation due to pain medication K59.[address] [address] Mar, 18 Type 2 diabetes mellitus without complication, without long-term current use of insulin E11.9 ; Chronic obstructive pulmonary disease, unspecified COPD type J44.9 ; Other chronic pain G89.29 and Constipation due to pain medication K59.[address] [address] February, 18 [place] [id number] [address] [place] [address] Jan, [address] [address] Jan, 18 Chronic obstructive pulmonary disease, unspecified COPD type J44.9 ; Other chronic pain G89.29 ; Type 2 diabetes mellitus without complication, without long-term current use of insulin E11.9 ; Insect bite (nonvenomous) of left upper arm, initial encounter S40.862A and Bedbug bite, initial encounter W57.XXXA [place] [id number] [address] [place] [address] Jan, [address] [address] Jan, [address] [address] Dec, 18 Other chronic pain G89.29 ; Schizoaffective disorder, unspecified type F25.9 ; Inflammatory spondylopathy of lumbar region M46.96 and Chronic obstructive pulmonary disease, unspecified COPD type J44.[address] [address] Nov, 18 Other chronic pain G89.[address] [address] Oct, 18 Low back pain M54.5 and Type 2 diabetes mellitus without complication, without long-term current use of insulin E11.[address] [address] Oct, 18 Low back pain M54.5 ; Other chronic pain G89.29 and Type 2 diabetes mellitus without complication, without long-term current use of insulin E11.[address] [address] Jan, 16 Dental examination Z01.[address] [id number] [address] [place] [address] Sep, [address] [id number] [address] [place] [phone] 15 Jul, 2009 IMMUNIZATIONS No Known Immunizations SOCIAL HISTORY Never Assessed REASON FOR VISIT question regarding pain meds PLAN OF CARE VITAL SIGNS MEDICATIONS Unknown [...]
--- OUTSIDE RECORDS SUMMARY | 2020-06-01 03:02 | XMS REPORT ---
Author Author Kalyan LEES Organization [facility] [address] Address [address] [place] [address] Care Team Providers Care Historic Clothing And Costume Maker Name Role Phone USMAN LEES Unavailable PROBLEMS Type Condition ICD9-CM Code LWR59-VR Code Onset Dates Condition S tatus SNOMED Code Problem Constipation due to pain medication K59.03 Active 79441915 Problem Inflammatory spondylopathy of lumbar region M46.96 Active 418539077 Problem Type 2 diabetes mellitus wit hout complication, without long-term current use of insulin E11.9 Active 595853086 Problem Other chronic pain G89.29 Active 8 7550945 Problem Chronic obstructive pulmonary disease, unspecified COPD ty pe J44.9 Active 36453998 Problem Schizoaffective disorder, unspecified type F25.9 Active 44960591 ALLERGIES No Information ENCOUNTERS Encounter Location Date Diagnosis [facility] [address] [address] [place] [address] Jun, [facility] [address] [place] [address] May, 18 Constipation due to pain medication K59.03 ; Chronic obstructive pulmonary disease, unspecified COPD type J44.9 ; Type 2 diabetes mellitus without complication, without long-term current use of insulin E11.9 and Other chronic pain G89.29 [facility] [address] [place] [address] [place] [address] Apr, 18 Other chronic pain G89.29 and Constipation due to pain medication K59.03 [facility] [address] [facility] [id number] [address] [place] [address] Apr, [facility] [address] [place] [address] Apr, 18 [facility] [address] [place] [address] Apr, [address] [address] Apr, [address] [address] Apr, 18 Other chronic pain G89.29 ; Insect bite (nonvenomous) of left upper arm, subsequent encounter S40.862D and Insect bite, subsequent encounter W57.XXXD [address] [address] Mar, [address] [address] Mar, 18 Constipation due to pain medication K59.[address] [address] Mar, 18 Type 2 diabetes mellitus without complication, without long-term current use of insulin E11.9 ; Chronic obstructive pulmonary disease, unspecified COPD type J44.9 ; Other chronic pain G89.29 and Constipation due to pain medication K59.[address] [address] February, 18 [place] [id number] [address] [place] [address] Jan, [address] [address] Jan, 18 Chronic obstructive pulmonary disease, unspecified COPD type J44.9 ; Other chronic pain G89.29 ; Type 2 diabetes mellitus without complication, without long-term current use of insulin E11.9 ; Insect bite (nonvenomous) of left upper arm, initial encounter S40.862A and Bedbug bite, initial encounter W57.XXXA [place] [id number] [address] [place] [address] Jan, [address] [address] Jan, [address] [address] Dec, 18 Other chronic pain G89.29 ; Schizoaffective disorder, unspecified type F25.9 ; Inflammatory spondylopathy of lumbar region M46.96 and Chronic obstructive pulmonary disease, unspecified COPD type J44.[address] [address] Nov, 18 Other chronic pain G89.[address] [address] Oct, 18 Low back pain M54.5 and Type 2 diabetes mellitus without complication, without long-term current use of insulin E11.[address] [address] Oct, 18 Low back pain M54.5 ; Other chronic pain G89.29 and Type 2 diabetes mellitus without complication, without long-term current use of insulin E11.[address] [address] Jan, 16 Dental examination Z01.[address] [id number] [address] [place] [address] Sep, [address] [id number] [address] [place] [address] 15 Jul, 2009 IMMUNIZATIONS No Known Immunizations SOCIAL HISTORY Never Assessed REASON FOR VISIT Requests return call PLAN OF CARE VITAL SIGNS MEDICATIONS [...]
--- OUTSIDE RECORDS SUMMARY | 2020-06-01 03:02 | XMS REPORT ---
Author Author Kalyan LEES Organization [facility] [address] Address [address] [place] [address] Care Team Providers Care Peoplesoft Taleo Manager Name Role Phone USMAN LEES Unavailable PROBLEMS Type Condition ICD9-CM Code VPR84-TZ Code Onset Dates Condition S tatus SNOMED Code Problem Type 2 diabetes mellitus wit hout complication, without long-term current use of insulin E11.9 Active 901364947 Problem Other chronic pain G89.29 Active 8 9980844 Problem Family history of prostate cancer in father Z80.42 Active 155583641 Problem Hx of partial thyroidectomy Z98.890 Ac tive 275240885 Problem Chronic obstructive pulmonary disease, unspecified COPD ty pe J44.9 Active 12931736 Problem Schizoaffective disorder, unspecified type F25.9 Active 58793960 Problem Constipation due to pain medication K59.03 Active 51042750 Problem Inflammatory spondylopathy of lumbar region M46.96 Active 897427322 ALLERGIES Substance Reaction Event Type Date Status Celexa Unknown Drug Allergy Jun, Active ENCOUNTERS Encounter Location Date Diagnosis [facility] [address] [place] [address] Aug, [facility] [address] [place] [address] Jul, 18 Effusion, left knee M25.462 [facility] [address] [place] [address] Jul, 18 Chronic obstructive pulmonary disease, unspecified COPD type J44.9 [facility] [address] [place] [address] Jun, 18 Type 2 diabetes mellitus without complication, without long-term current use of insulin E11.9 ; Family history of prostate cancer in father Z80.42 and Hx of partial thyroidectomy Z98.890 [facility] [address] [place] [address] May, 18 Constipation due to pain medication K59.03 ; Chronic obstructive pulmonary disease, unspecified COPD type J44.9 ; Type 2 diabetes mellitus without complication, without long-term current use of insulin E11.9 and Other chronic pain G89.29 [facility] [address] [place] [address] Apr, 18 Other chronic pain G89.29 and Constipation due to pain medication K59.03 [place] [id number] [address] [place] [address] Apr, [facility] [place] [address] [place] [address] Apr, 18 [facility] [address] [place] [address] Apr, 18 [facility] [address] [address] Apr, 18 [facility] [address] [address] Apr, 18 Other chronic pain G89.29 ; Insect bite (nonvenomous) of left upper arm, subsequent encounter S40.862D and Insect bite, subsequent encounter W57.XXXD [place] [id number] [address] [place] [address] Mar, [facility] [address] [address] Mar, 18 Constipation due to pain medication K59.03 [facility] [address] [place] [address] Mar, 18 Type 2 diabetes mellitus without complication, without long-term current use of insulin E11.9 ; Chronic obstructive pulmonary disease, unspecified COPD type J44.9 ; Other chronic pain G89.29 and Constipation due to pain medication K59.03 [facility] [address] [place] [address] February, 18 [place] [id number] [address] [place] [address] Jan, [address] [address] 30 Jan, 18 Chronic obstructive pulmonary disease, unspecified COPD type J44.9 ; Other chronic pain G89.29 ; Type 2 diabetes mellitus without complication, without long-term current use of insulin E11.9 ; Insect bite (nonvenomous) of left upper arm, initial encounter S40.862A and Bedbug bite, initial encounter W57.XXXA [address] [address] Jan, [address] [address] Jan, [address] [address] Dec, 18 Other chronic pain G89.29 ; Schizoaffective disorder, unspecified type F25.9 ; Inflammatory spondylopathy of lumbar region M46.96 and Chronic obstructive pulmonary disease, unspecified COPD type J44.[address] [address] 28 Nov, 18 Other chronic pain G89.[address] [address] Oct, 18 Low back pain M54.5 and Type 2 diabetes mellitus without complication, without long-term current use of insulin E11.[address] [address] Oct, 18 Low back pain M54.5 ; Other chronic pain G89.29 and Type 2 diabetes mellitus without complication, without long-term current use of insulin E11.[address] [address] 05 Jan, 16 Dental examination Z01.[address] [address] Sep, [place] [id number] [address] [place] [address] 15 Jul, 2009 IMMUNIZATIONS No Known Immunizations SOCIAL HISTORY Never Assessed REASON FOR VISIT diabetes. a1c= 5.8, has a list that he wants to talk about. PLAN OF CARE Activity Details Follow Up 2 Months Reason: VITAL SIGNS Height 68 in 2018-07-17 Weight 233.9 lbs 2018-07-17 Temperature 98.0 degrees Fahrenheit 2018-07-17 Heart Rate 112 bpm 2018-07-17 Respiratory Rate 18 2018-07-17 BMI 35.56 kg/m2 2018-07-17 Blood pressure systolic 102 mmHg 2018-07-17 Blood pressure diastolic 68 mmHg 2018-07-17 MEDICATIONS Medication Instructions Dosage Frequency Start Date End Date Duration S tatus Triamcinolone Acetonide 0.1 % Externally Twice a day 1 appli cation to affected area 12h Active Glimepiride 2 MG TAKE 1 TABLET BY MOUTH DAILY IN THE MORNING 138 Active Duloxetine HCl 60 MG Orally Once a day 1 capsule 24h Active Benztropine Mesylate 1 MG Orally 2 times a day 1 tablet 12h Active Famotidine 20 MG TAKE 1 TABLET BY MOUTH DAILY 138 Active Baclofen 10 MG TAKE 1 TABLET WITH FOOD OR MILK THREE TIMES A DAY ORALLY 30 Active Linzess 145 MCG Orally Once a day 1 capsule 24h 30 Active Paliperidone Palmitate 156 MG/ML Intramuscular once monthly 1 ml Active Clonazepam 1 MG Orally 2 times a day 1 tablet 12h Active Divalproex Sodium ER 500 MG TAKE 1 TABLET BY MOUTH DAILY AT BEDT TIARRA 176 Active Doxycycline Hyclate 100 mg Orally every 12 hrs 1 capsule 12h 7 days Active Gabapentin 100 MG 1 capsule before bedtime Active Tamsulosin HCl 0.4 MG Orally Once a day 1 capsule 24h Active Hydrocodone-Acetaminophen 7.5-325 MG Orally every 6-8 hrs 1 tablet as needed May, Active Hydrocortisone in Absorbase 1 % APPLY TO AFFECTED AREA TWICE STER[place] LY 20 Active RESULTS No Results PROCEDURES Procedure Date Ordered Result Body Site [facility] VISIT ESTABLISHED PATIENT Jul 17, 2018 LAB NOT BILLED BY [facility] Jul 17, 2018 INSTRUCTIONS MEDICATIONS ADMINISTERED No Known Medications MEDICAL (GENERAL) HISTORY Type Description Date Medical History THYROID PROBLEMS Medical History DIABETES Medical History Bipolar Medical History Schizophrenia Surgical History Rods placed in back 02/2017 Surgical History Rods removed from back s/p infection 2016 Surgical History carpal tunnel release Surgical History cholecystectomy Hospitalization History Back surgery
--- OUTSIDE RECORDS SUMMARY | 2020-06-01 03:02 | XMS REPORT ---
Author Author Kalyan LEES Organization [facility] [address] Address [address] [place] [address] Care Team Providers Care Web Database Developer Name Role Phone USMAN LEES Unavailable PROBLEMS Type Condition ICD9-CM Code [id number] Code Onset Dates Condition S tatus SNOMED Code Problem Constipation due to pain medication K59.03 Active 07969264 Problem Inflammatory spondylopathy of lumbar region M46.96 Active 988477322 Problem Type 2 diabetes mellitus wit hout complication, without long-term current use of insulin E11.9 Active 644554788 Problem Other chronic pain G89.29 Active 8 3725865 Problem Chronic obstructive pulmonary disease, unspecified COPD ty pe J44.9 Active 94667952 Problem Schizoaffective disorder, unspecified type F25.9 Active 56547105 ALLERGIES Substance Reaction Event Type Date Status Celexa Unknown Drug Allergy Apr, Active ENCOUNTERS Encounter Location Date Diagnosis [facility] [address] [place] [address] Jun, [facility] [address] [place] [address] May, 18 Constipation due to pain medication K59.03 ; Chronic obstructive pulmonary disease, unspecified COPD type J44.9 ; Type 2 diabetes mellitus without complication, without long-term current use of insulin E11.9 and Other chronic pain G89.29 [facility] [address] [place] [address] Apr, 18 Other chronic pain G89.29 and Constipation due to pain medication K59.03 [facility] [address] [facility] [id number] [address] [place] [address] Apr, [facility] [address] [place] [address] Apr, [facility] [address] [place] [address] 05 Apr, 18 [facility] [address] [place] [address] Apr, 18 [facility] [address] [place] [address] Apr, 18 Other chronic pain G89.29 ; Insect bite (nonvenomous) of left upper arm, subsequent encounter S40.862D and Insect bite, subsequent encounter W57.XXXD [address] [address] Mar, [address] [address] Mar, 18 Constipation due to pain medication K59.[address] [address] Mar, 18 Type 2 diabetes mellitus without complication, without long-term current use of insulin E11.9 ; Chronic obstructive pulmonary disease, unspecified COPD type J44.9 ; Other chronic pain G89.29 and Constipation due to pain medication K59.03 [facility] [address] [place] [address] February, [address] [address] Jan, [address] [address] Jan, 18 Chronic obstructive pulmonary disease, unspecified COPD type J44.9 ; Other chronic pain G89.29 ; Type 2 diabetes mellitus without complication, without long-term current use of insulin E11.9 ; Insect bite (nonvenomous) of left upper arm, initial encounter S40.862A and Bedbug bite, initial encounter W57.XXXA [address] [address] Jan, [address] [address] Jan, [address] [address] Dec, 18 Other chronic pain G89.29 ; Schizoaffective disorder, unspecified type F25.9 ; Inflammatory spondylopathy of lumbar region M46.96 and Chronic obstructive pulmonary disease, unspecified COPD type J44.9 [facility] [address] [place] [address] Nov, 18 Other chronic pain G89.29 [facility] [address] [place] [address] Oct, 18 Low back pain M54.5 and Type 2 diabetes mellitus without complication, without long-term current use of insulin E11.9 [facility] [address] [place] [address] Oct, 18 Low back pain M54.5 ; Other chronic pain G89.29 and Type 2 diabetes mellitus without complication, without long-term current use of insulin E11.9 [facility] [address] [place] [address] Jan, 16 Dental examination Z01.20 [place] [address] [facility] [id number] [address] [place] [address] Sep, [address] [id number] [address] [place] [phone] Jul, IMMUNIZATIONS No Known Immunizations SOCIAL HISTORY Never Assessed REASON FOR VISIT back of left leg pain/bites cream is working on his arms Chapin Whatley RN PLAN OF CARE Activity Details Follow Up 4 Weeks Reason: VITAL SIGNS Height 68 in 2018-05-22 Weight 225.2 lbs 2018-05-22 Temperature 98.9 degrees Fahrenheit 2018-05-22 Heart Rate 121 bpm 2018-05-22 Respiratory Rate 18 2018-05-22 BMI 34.24 kg/m2 2018-05-22 Blood pressure systolic 106 mmHg 2018-05-22 Blood pressure diastolic 66 mmHg 2018-05-22 MEDICATIONS Medication Instructions Dosage Frequency Start Date End Date Duration S lance Tamsulosin HCl 0.4 MG Orally Once a day 1 capsule 24h Active Duloxetine HCl 60 MG Orally Once a day 1 capsule 24h Active Divalproex Sodium ER 500 MG Orally at bedtime 1 tablet Active Famotidine 20 MG Orally Once a day 1 tablet 24h Active Gabapentin 100 MG 1 capsule before bedtime Active Doxycycline Hyclate 100 mg Orally every 12 hrs 1 capsule 12h 07 days Active Baclofen 10 mg 1 tablet with food or milk Three times a day Oral ly Active Hydrocodone-Acetaminophen 7.5-325 MG Orally every 6-8 hrs 1 tablet as needed Active Paliperidone Palmitate 156 MG/ML Intramuscular once monthly 1 ml Active Triamcinolone Acetonide 0.1 % Externally Twice a day 1 appli cation to affected area 12h Active Linzess 145 MCG Orally Once a day 1 capsule 24h Mar, Active Clonazepam 1 MG Orally 2 times a day 1 tablet 12h Active Benztropine Mesylate 1 MG Orally 2 times a day 1 tablet 12h Active PredniSONE 20 mg Orally Once a day 1 tablet 24h Apr, Active Glimepiride 2 MG Orally Once a day 1 tablet with breakf ast or the first main meal of the day 24h Active Hydrocortisone in Absorbase 1 % APPLY TO AFFECTED AREA TWICE STERLING LY 25 Active RESULTS No Results PROCEDURES Procedure Date Ordered Result Body Site [facility] VISIT ESTABLISHED PATIENT May 22, 2018 INSTRUCTIONS MEDICATIONS ADMINISTERED No Known Medications MEDICAL (GENERAL) HISTORY Type Description Date Medical History THYROID PROBLEMS Medical History DIABETES Medical History Bipolar Medical History Schizophrenia Surgical History Rods placed in back 02/2017 Surgical History Rods removed from back s/p infection 2016 Surgical History carpal tunnel release Surgical History cholecystectomy Hospitalization History Back surgery
--- OUTSIDE RECORDS SUMMARY | 2020-06-01 03:02 | XMS REPORT ---
Author Author Kalyan LEES Organization [facility] [address] Address [address] [place] [address] Care Team Providers Care Stencil Machine Operator Name Role Phone USMAN LEES Unavailable PROBLEMS Type Condition ICD9-CM Code LUV03-QR Code Onset Dates Condition S tatus SNOMED Code Problem Constipation due to pain medication K59.03 Active 60750199 Problem Inflammatory spondylopathy of lumbar region M46.96 Active 601882708 Problem Type 2 diabetes mellitus wit hout complication, without long-term current use of insulin E11.9 Active 023158573 Problem Other chronic pain G89.29 Active 8 9791895 Problem Chronic obstructive pulmonary disease, unspecified COPD ty pe J44.9 Active 77592082 Problem Schizoaffective disorder, unspecified type F25.9 Active 28039014 ALLERGIES No Information ENCOUNTERS Encounter Location Date Diagnosis [facility] [address] [place] [address] Jun, [facility] [address] [place] [address] May, 18 Constipation due to pain medication K59.03 ; Chronic obstructive pulmonary disease, unspecified COPD type J44.9 ; Type 2 diabetes mellitus without complication, without long-term current use of insulin E11.9 and Other chronic pain G89.29 [facility] [address] [place] [address] Apr, 18 Other chronic pain G89.29 and Constipation due to pain medication K59.03 [facility] [address] [facility] [id number] [address] [place] [address] Apr, [facility] [address] [place] [address] Apr, 18 [facility] [address] [place] [address] Apr, [address] [address] Apr, [address] [address] Apr, 18 Other chronic pain G89.29 ; Insect bite (nonvenomous) of left upper arm, subsequent encounter S40.862D and Insect bite, subsequent encounter W57.XXXD [address] [address] Mar, [address] [address] Mar, 18 Constipation due to pain medication K59.[address] [address] Mar, 18 Type 2 diabetes mellitus without complication, without long-term current use of insulin E11.9 ; Chronic obstructive pulmonary disease, unspecified COPD type J44.9 ; Other chronic pain G89.29 and Constipation due to pain medication K59.[address] [address] February, 18 [place] [id number] [address] [place] [address] Jan, [address] [address] Jan, 18 Chronic obstructive pulmonary disease, unspecified COPD type J44.9 ; Other chronic pain G89.29 ; Type 2 diabetes mellitus without complication, without long-term current use of insulin E11.9 ; Insect bite (nonvenomous) of left upper arm, initial encounter S40.862A and Bedbug bite, initial encounter W57.XXXA [place] [id number] [address] [place] [address] Jan, [address] [address] Jan, [address] [address] Dec, 18 Other chronic pain G89.29 ; Schizoaffective disorder, unspecified type F25.9 ; Inflammatory spondylopathy of lumbar region M46.96 and Chronic obstructive pulmonary disease, unspecified COPD type J44.[address] [address] Nov, 18 Other chronic pain G89.[address] [address] Oct, 18 Low back pain M54.5 and Type 2 diabetes mellitus without complication, without long-term current use of insulin E11.[address] [address] Oct, 18 Low back pain M54.5 ; Other chronic pain G89.29 and Type 2 diabetes mellitus without complication, without long-term current use of insulin E11.[address] [address] Jan, 16 Dental examination Z01.[address] [id number] [address] [place] [address] Sep, [address] [id number] [address] [place] [phone] 15 Jul, 2009 IMMUNIZATIONS No Known Immunizations SOCIAL HISTORY Never Assessed REASON FOR VISIT CCM note PLAN OF CARE VITAL SIGNS MEDICATIONS Unknown [...]
--- OUTSIDE RECORDS SUMMARY | 2020-06-01 03:02 | XMS REPORT ---
Author Author Kalyan LEES Organization [facility] [address] Address [address] [place] [address] Care Team Providers Care Maintenance Shop Clerk Name Role Phone USMAN LEES Unavailable PROBLEMS Type Condition ICD9-CM Code [id number] Code Onset Dates Condition S tatus SNOMED Code Problem Constipation due to pain medication K59.03 Active 15570117 Problem Inflammatory spondylopathy of lumbar region M46.96 Active 817610811 Problem Type 2 diabetes mellitus wit hout complication, without long-term current use of insulin E11.9 Active 887224297 Problem Other chronic pain G89.29 Active 8 0999116 Problem Chronic obstructive pulmonary disease, unspecified COPD ty pe J44.9 Active 27117978 Problem Schizoaffective disorder, unspecified type F25.9 Active 87302758 ALLERGIES Substance Reaction Event Type Date Status Celexa Unknown Drug Allergy Mar, Active ENCOUNTERS Encounter Location Date Diagnosis [facility] [address] [place] [address] Jun, [facility] [address] [place] [address] May, 18 Constipation due to pain medication K59.03 ; Chronic obstructive pulmonary disease, unspecified COPD type J44.9 ; Type 2 diabetes mellitus without complication, without long-term current use of insulin E11.9 and Other chronic pain G89.29 [facility] [address] [place] [address] Apr, 18 Other chronic pain G89.29 and Constipation due to pain medication K59.03 [facility] [address] [facility] [id number] [address] [place] [address] Apr, [facility] [address] [place] [address] Apr, [facility] [address] [place] [address] 05 Apr, [address] [address] Apr, [address] [address] Apr, 18 Other chronic pain G89.29 ; Insect bite (nonvenomous) of left upper arm, subsequent encounter S40.862D and Insect bite, subsequent encounter W57.XXXD [address] [address] Mar, [address] [address] Mar, 18 Constipation due to pain medication K59.[address] [address] Mar, 18 Type 2 diabetes mellitus without complication, without long-term current use of insulin E11.9 ; Chronic obstructive pulmonary disease, unspecified COPD type J44.9 ; Other chronic pain G89.29 and Constipation due to pain medication K59.[address] [address] February, [address] [address] Jan, [address] [address] Jan, 18 Chronic obstructive pulmonary disease, unspecified COPD type J44.9 ; Other chronic pain G89.29 ; Type 2 diabetes mellitus without complication, without long-term current use of insulin E11.9 ; Insect bite (nonvenomous) of left upper arm, initial encounter S40.862A and Bedbug bite, initial encounter W57.XXXA [address] [address] Jan, [address] [address] Jan, [address] [address] Dec, 18 Other chronic pain G89.29 ; Schizoaffective disorder, unspecified type F25.9 ; Inflammatory spondylopathy of lumbar region M46.96 and Chronic obstructive pulmonary disease, unspecified COPD type J44.[address] [address] 28 Nov, 18 Other chronic pain G89.[address] [address] Oct, 18 Low back pain M54.5 and Type 2 diabetes mellitus without complication, without long-term current use of insulin E11.[address] [address] Oct, 18 Low back pain M54.5 ; Other chronic pain G89.29 and Type 2 diabetes mellitus without complication, without long-term current use of insulin E11.[address] [address] Jan, 16 Dental examination Z01.[address] [id number] [address] [place] [address] Sep, [address] [id number] [address] [place] [address] Jul, IMMUNIZATIONS No Known Immunizations SOCIAL HISTORY Never Assessed REASON FOR VISIT 4 week f/u for pain management- pain is increased this week wondering about some thing for hip and shoulder pain, EUGENE Whatley RN PLAN OF CARE Activity Details Follow Up 3 Months Reason:diabetes VITAL SIGNS Height 68 in 2018-03-27 Weight 228.4 lbs 2018-03-27 Temperature 98.2 degrees Fahrenheit 2018-03-27 Heart Rate 80 bpm 2018-03-27 Respiratory Rate 18 2018-03-27 BMI 34.72 kg/m2 2018-03-27 Blood pressure systolic 124 mmHg 2018-03-27 Blood pressure diastolic 72 mmHg 2018-03-27 MEDICATIONS Medication Instructions Dosage Frequency Start Date End Date Duration S tatus Duloxetine HCl 60 MG Orally Once a day 1 capsule 24h Active Clonazepam 1 MG Orally 2 times a day 1 tablet 12h Active Divalproex Sodium ER 500 MG Orally at bedtime 1 tablet Active Gabapentin 100 MG 1 capsule before bedtime Active Linzess 145 MCG Orally Once a day 1 capsule 24h Mar, Active Hydrocodone-Acetaminophen 7.5-325 MG Orally every 6-8 hrs 1 tablet as needed Active Famotidine 20 MG Orally Once a day 1 tablet 24h Active Tamsulosin HCl 0.4 MG Orally Once a day 1 capsule 24h Active Benztropine Mesylate 1 MG Orally 2 times a day 1 tablet 12h Active Paliperidone Palmitate 156 MG/ML Intramuscular once monthly 1 ml Active Glimepiride 2 MG Orally Once a day 1 tablet with breakf ast or the first main meal of the day 24h Active Triamcinolone Acetonide 0.1 % Externally Twice a day 1 appli cation to affected area 12h Active Baclofen 10 mg Orally Three times a day 1 tablet with food or milk 8h Active RESULTS Name Result Date Reference Range A1C (IN HOUSE) 2018-03-27 A1C IN HOUSE 6.0 4.3 - 5.6 % Previous A1c 5.8 Lot [id number] Exp date 12/2019 PROCEDURES Procedure Date Ordered Result Body Site GLYCATED HEMOGLOBIN TEST March 27, 2018 [facility] VISIT ESTABLISHED PATIENT March 27, 2018 INSTRUCTIONS MEDICATIONS ADMINISTERED No Known Medications MEDICAL (GENERAL) HISTORY Type Description Date Medical History THYROID PROBLEMS Medical History DIABETES Medical History Bipolar Medical History Schizophrenia Surgical History Rods placed in back 02/2017 Surgical History Rods removed from back s/p infection 2016 Surgical History carpal tunnel release Surgical History cholecystectomy Hospitalization History Back surgery
--- OUTSIDE RECORDS SUMMARY | 2020-06-01 03:02 | XMS REPORT ---
Author Author Kalyan LEES Organization [facility] [address] Address [address] [place] [address] Care Team Providers Care Senior Functional Analyst Name Role Phone USMAN LEES Unavailable PROBLEMS Type Condition ICD9-CM Code [id number] Code Onset Dates Condition S tatus SNOMED Code Problem Constipation due to pain medication K59.03 Active 26494049 Problem Inflammatory spondylopathy of lumbar region M46.96 Active 711463744 Problem Type 2 diabetes mellitus wit hout complication, without long-term current use of insulin E11.9 Active 696272788 Problem Other chronic pain G89.29 Active 8 1629178 Problem Chronic obstructive pulmonary disease, unspecified COPD ty pe J44.9 Active 59613513 Problem Schizoaffective disorder, unspecified type F25.9 Active 84652812 ALLERGIES Substance Reaction Event Type Date Status Celexa Unknown Drug Allergy Apr, Active ENCOUNTERS Encounter Location Date Diagnosis [facility] [address] [place] [address] Jun, [facility] [address] [place] [address] May, 18 Constipation due to pain medication K59.03 ; Chronic obstructive pulmonary disease, unspecified COPD type J44.9 ; Type 2 diabetes mellitus without complication, without long-term current use of insulin E11.9 and Other chronic pain G89.29 [facility] [address] [place] [address] Apr, 18 Other chronic pain G89.29 and Constipation due to pain medication K59.03 [facility] [address] [facility] [id number] [address] [place] [address] Apr, [facility] [address] [place] [address] Apr, [facility] [address] [place] [address] 05 Apr, [address] [address] Apr, [address] [address] Apr, 18 Other chronic pain G89.29 ; Insect bite (nonvenomous) of left upper arm, subsequent encounter S40.862D and Insect bite, subsequent encounter W57.XXXD [address] [address] Mar, [address] [address] Mar, 18 Constipation due to pain medication K59.[address] [address] Mar, 18 Type 2 diabetes mellitus without complication, without long-term current use of insulin E11.9 ; Chronic obstructive pulmonary disease, unspecified COPD type J44.9 ; Other chronic pain G89.29 and Constipation due to pain medication K59.[address] [address] February, [address] [address] Jan, [address] [address] Jan, 18 Chronic obstructive pulmonary disease, unspecified COPD type J44.9 ; Other chronic pain G89.29 ; Type 2 diabetes mellitus without complication, without long-term current use of insulin E11.9 ; Insect bite (nonvenomous) of left upper arm, initial encounter S40.862A and Bedbug bite, initial encounter W57.XXXA [address] [address] Jan, [address] [address] Jan, [address] [address] Dec, 18 Other chronic pain G89.29 ; Schizoaffective disorder, unspecified type F25.9 ; Inflammatory spondylopathy of lumbar region M46.96 and Chronic obstructive pulmonary disease, unspecified COPD type J44.[address] [address] Nov, 18 Other chronic pain G89.[address] [address] Oct, 18 Low back pain M54.5 and Type 2 diabetes mellitus without complication, without long-term current use of insulin E11.[address] [address] Oct, 18 Low back pain M54.5 ; Other chronic pain G89.29 and Type 2 diabetes mellitus without complication, without long-term current use of insulin E11.[address] [address] Jan, 16 Dental examination Z01.20 [place] [id number] [address] [place] [address] Sep, [address] [id number] [address] [place] [address] Jul, IMMUNIZATIONS No Known Immunizations SOCIAL HISTORY Never Assessed REASON FOR VISIT pain control, patient missed his appt with Dr. Rendon is having pain to back- SHill Whatley RN, L knee pain PLAN OF CARE Activity Details Follow Up 4 Weeks Reason:pain/ bites VITAL SIGNS Height 68 in 2018-04-24 Weight 225.8 lbs 2018-04-24 Temperature 98 degrees Fahrenheit 2018-04-24 Heart Rate 78 bpm 2018-04-24 Respiratory Rate 18 2018-04-24 BMI 34.33 kg/m2 2018-04-24 Blood pressure systolic 120 mmHg 2018-04-24 Blood pressure diastolic 76 mmHg 2018-04-24 MEDICATIONS Medication Instructions Dosage Frequency Start Date End Date Duration S tatus Baclofen 10 mg Orally Three times a day 1 tablet with food or milk 8h Active Hydrocortisone in Absorbase 1 % APPLY TO AFFECTED AREA TWICE STERLING LY 25 Active Paliperidone Palmitate 156 MG/ML Intramuscular once monthly 1 ml Active Gabapentin 100 MG 1 capsule before bedtime Active Glimepiride 2 MG Orally Once a day 1 tablet with breakf ast or the first main meal of the day 24h Active Doxycycline Hyclate 100 mg Orally every 12 hrs 1 capsule 12h 07 days Active Famotidine 20 MG Orally Once a day 1 tablet 24h Active Linzess 145 MCG Orally Once a day 1 capsule 24h Mar, Active Divalproex Sodium ER 500 MG Orally at bedtime 1 tablet Active Clonazepam 1 MG Orally 2 times a day 1 tablet 12h Active Benztropine Mesylate 1 MG Orally 2 times a day 1 tablet 12h Active Triamcinolone Acetonide 0.1 % Externally Twice a day 1 appli cation to affected area 12h Active Hydrocodone-Acetaminophen 7.5-325 MG Orally every 6-8 hrs 1 tablet as needed Active PredniSONE 20 mg Orally Once a day 1 tablet 24h Apr, Active Duloxetine HCl 60 MG Orally Once a day 1 capsule 24h Active Tamsulosin HCl 0.4 MG Orally Once a day 1 capsule 24h Active RESULTS No Results PROCEDURES Procedure Date Ordered Result Body Site [facility] ESTABL[facility] PATIENT April 24, 2018 INSTRUCTIONS MEDICATIONS ADMINISTERED No Known Medications MEDICAL (GENERAL) HISTORY Type Description Date Medical History THYROID PROBLEMS Medical History DIABETES Medical History Bipolar Medical History Schizophrenia Surgical History Rods placed in back 02/2017 Surgical History Rods removed from back s/p infection 2016 Surgical History carpal tunnel release Surgical History cholecystectomy Hospitalization History Back surgery
--- OUTSIDE RECORDS SUMMARY | 2020-06-01 03:02 | XMS REPORT ---
Author Author Kalyan LEES Organization [facility] [address] Address [address] [place] [address] Care Team Providers Care Medical Researcher Name Role Phone USMAN LEES Unavailable PROBLEMS Type Condition ICD9-CM Code [id number] Code Onset Dates Condition S tatus SNOMED Code Problem Type 2 diabetes mellitus wit hout complication, without long-term current use of insulin E11.9 Active 279947682 Problem Other chronic pain G89.29 Active 8 6021453 Problem Family history of prostate cancer in father Z80.42 Active 509625412 Problem Hx of partial thyroidectomy Z98.890 Ac tive 511194677 Problem Chronic obstructive pulmonary disease, unspecified COPD ty pe J44.9 Active 85030686 Problem Schizoaffective disorder, unspecified type F25.9 Active 38504836 Problem Constipation due to pain medication K59.03 Active 49054414 Problem Inflammatory spondylopathy of lumbar region M46.96 Active 185066182 ALLERGIES Substance Reaction Event Type Date Status Celexa Unknown Drug Allergy May, Active ENCOUNTERS Encounter Location Date Diagnosis [facility] [address] [place] [address] Aug, [facility] [address] [place] [address] Jun, 18 Type 2 diabetes mellitus without complication, without long-term current use of insulin E11.9 ; Family history of prostate cancer in father Z80.42 and Hx of partial thyroidectomy Z98.890 [facility] [address] [place] [address] May, 18 Constipation due to pain medication K59.03 ; Chronic obstructive pulmonary disease, unspecified COPD type J44.9 ; Type 2 diabetes mellitus without complication, without long-term current use of insulin E11.9 and Other chronic pain G89.29 [facility] [address] [place] [address] Apr, 18 Other chronic pain G89.29 and Constipation due to pain medication K59.[address] [place] [address] Apr, [facility] [address] [address] Apr, [address] [address] Apr, [address] [address] Apr, [address] [address] Apr, 18 Other chronic pain G89.29 ; Insect bite (nonvenomous) of left upper arm, subsequent encounter S40.862D and Insect bite, subsequent encounter W57.XXXD [place] [id number] [address] [place] [address] Mar, [facility] [address] Mar, 18 Constipation due to pain medication K59.[address] [address] Mar, 18 Type 2 diabetes mellitus without complication, without long-term current use of insulin E11.9 ; Chronic obstructive pulmonary disease, unspecified COPD type J44.9 ; Other chronic pain G89.29 and Constipation due to pain medication K59.03 [facility] [address] [address] February, 18 [place] [id number] [address] [place] [address] Jan, [address] [address] Jan, 18 Chronic obstructive pulmonary disease, unspecified COPD type J44.9 ; Other chronic pain G89.29 ; Type 2 diabetes mellitus without complication, without long-term current use of insulin E11.9 ; Insect bite (nonvenomous) of left upper arm, initial encounter S40.862A and Bedbug bite, initial encounter W57.XXXA [place] [id number] [address] [place] [address] Jan, [place] [id number] [address] [place] [address] Jan, [address] [address] Dec, 18 Other chronic pain G89.29 ; Schizoaffective disorder, unspecified type F25.9 ; Inflammatory spondylopathy of lumbar region M46.96 and Chronic obstructive pulmonary disease, unspecified COPD type J44.[address] [address] Nov, 18 Other chronic pain G89.[address] [address] Oct, 18 Low back pain M54.5 and Type 2 diabetes mellitus without complication, without long-term current use of insulin E11.[address] [address] Oct, 18 Low back pain M54.5 ; Other chronic pain G89.29 and Type 2 diabetes mellitus without complication, without long-term current use of insulin E11.[address] [address] 05 Jan, 16 Dental examination Z01.20 [place] [id number] [place] [address] Sep, [place] [id number] [address] [place] [phone] Jul, IMMUNIZATIONS No Known Immunizations SOCIAL HISTORY Never Assessed REASON FOR VISIT Pain management- still has the rash on his arms Chapin Whatley RN PLAN OF CARE Activity Details Follow Up 4 Weeks Reason:a1c VITAL SIGNS Height 68 in 2018-06-19 Weight 227 lbs 2018-06-19 Temperature 98.8 degrees Fahrenheit 2018-06-19 Heart Rate 88 bpm 2018-06-19 Respiratory Rate 18 2018-06-19 BMI 34.51 kg/m2 2018-06-19 Blood pressure systolic 112 mmHg 2018-06-19 Blood pressure diastolic 78 mmHg 2018-06-19 MEDICATIONS Medication Instructions Dosage Frequency Start Date End Date Duration S lance Benztropine Mesylate 1 MG Orally 2 times a day 1 tablet 12h Active Duloxetine HCl 60 MG Orally Once a day 1 capsule 24h Active Baclofen 10 MG TAKE 1 TABLET WITH FOOD OR MILK THREE TIMES A DAY ORALLY 30 Active Divalproex Sodium ER 500 MG TAKE 1 TABLET BY MOUTH DAILY AT BEDT TIARRA 176 Active Clonazepam 1 MG Orally 2 times a day 1 tablet 12h Active Linzess 145 MCG Orally Once a day 1 capsule 24h Mar, Active Hydrocortisone in Absorbase 1 % APPLY TO AFFECTED AREA TWICE STERLING LY Active Hydrocodone-Acetaminophen 7.5-325 MG Orally every 6-8 hrs 1 tablet as needed May, Active Gabapentin 100 MG 1 capsule before bedtime Active Paliperidone Palmitate 156 MG/ML Intramuscular once monthly 1 ml Active Triamcinolone Acetonide 0.1 % Externally Twice a day 1 appli cation to affected area 12h Active Glimepiride 2 MG TAKE 1 TABLET BY MOUTH DAILY IN THE MORNING 138 Active Tamsulosin HCl 0.4 MG Orally Once a day 1 capsule 24h Active PredniSONE 20 mg Orally Once a day 1 tablet 24h Apr, Not-Taking Famotidine 20 MG TAKE 1 TABLET BY MOUTH DAILY 138 Active Doxycycline Hyclate 100 mg Orally every 12 hrs 1 capsule 12h 07 days Active RESULTS No Results PROCEDURES Procedure Date Ordered Result Body Site [facility] VISIT ESTABLISHED PATIENT Jun 19, 2018 INSTRUCTIONS MEDICATIONS ADMINISTERED No Known Medications MEDICAL (GENERAL) HISTORY Type Description Date Medical History THYROID PROBLEMS Medical History DIABETES Medical History Bipolar Medical History Schizophrenia Surgical History Rods placed in back 02/2017 Surgical History Rods removed from back s/p infection 2016 Surgical History carpal tunnel release Surgical History cholecystectomy Hospitalization History Back surgery
--- OUTSIDE RECORDS SUMMARY | 2020-06-01 03:02 | XMS REPORT ---
Author Author Kalyan LEES Organization [facility] [address] Address [address] [place] [address] Care Team Providers Care Last Trimmer Name Role Phone USMAN LEES Unavailable PROBLEMS Type Condition ICD9-CM Code JDT51-HT Code Onset Dates Condition S tatus SNOMED Code Problem Constipation due to pain medication K59.03 Active 79460658 Problem Inflammatory spondylopathy of lumbar region M46.96 Active 018139966 Problem Type 2 diabetes mellitus wit hout complication, without long-term current use of insulin E11.9 Active 855397674 Problem Other chronic pain G89.29 Active 8 5930636 Problem Chronic obstructive pulmonary disease, unspecified COPD ty pe J44.9 Active 65737354 Problem Schizoaffective disorder, unspecified type F25.9 Active 54850574 ALLERGIES No Information ENCOUNTERS Encounter Location Date Diagnosis [facility] [address] [place] [address] Jun, [facility] [address] [place] [address] May, 18 Constipation due to pain medication K59.03 ; Chronic obstructive pulmonary disease, unspecified COPD type J44.9 ; Type 2 diabetes mellitus without complication, without long-term current use of insulin E11.9 and Other chronic pain G89.29 [facility] [address] [place] [address] Apr, 18 Other chronic pain G89.29 and Constipation due to pain medication K59.03 [facility] [address] [facility] [id number] [address] [place] [address] Apr, [facility] [place] [address] [place] [address] Apr, 18 [facility] [place] [address] [place] [address] Apr, 18 [facility] [address] [place] [address] Apr, [address] [address] Apr, 18 Other chronic pain G89.29 ; Insect bite (nonvenomous) of left upper arm, subsequent encounter S40.862D and Insect bite, subsequent encounter W57.XXXD [address] [address] Mar, [address] [address] Mar, 18 Constipation due to pain medication K59.[address] [address] Mar, 18 Type 2 diabetes mellitus without complication, without long-term current use of insulin E11.9 ; Chronic obstructive pulmonary disease, unspecified COPD type J44.9 ; Other chronic pain G89.29 and Constipation due to pain medication K59.[address] [address] February, [address] [address] Jan, [address] [address] Jan, 18 Chronic obstructive pulmonary disease, unspecified COPD type J44.9 ; Other chronic pain G89.29 ; Type 2 diabetes mellitus without complication, without long-term current use of insulin E11.9 ; Insect bite (nonvenomous) of left upper arm, initial encounter S40.862A and Bedbug bite, initial encounter W57.XXXA [address] [address] Jan, [address] [address] Jan, [address] [address] Dec, 18 Other chronic pain G89.29 ; Schizoaffective disorder, unspecified type F25.9 ; Inflammatory spondylopathy of lumbar region M46.96 and Chronic obstructive pulmonary disease, unspecified COPD type J44.9 [facility] [address] [place] [address] 28 Nov, 18 Other chronic pain G89.29 [facility] [address] [place] [address] Oct, 18 Low back pain M54.5 and Type 2 diabetes mellitus without complication, without long-term current use of insulin E11.9 [facility] [address] [place] [address] Oct, 18 Low back pain M54.5 ; Other chronic pain G89.29 and Type 2 diabetes mellitus without complication, without long-term current use of insulin E11.9 [facility] [address] [place] [address] Jan, 16 Dental examination Z01.20 [place] [id number] [address] [place] [address] Sep, [address] [id number] [address] [place] [phone] Jul, IMMUNIZATIONS No Known Immunizations SOCIAL HISTORY Never Assessed REASON FOR VISIT [facility] call PLAN OF CARE VITAL SIGNS [...]
--- OUTSIDE RECORDS SUMMARY | 2020-06-01 03:02 | XMS REPORT ---
Author Author Kalyan LEES Organization [facility] [address] Address [address] [place] [address] Care Team Providers Care Pricing Intern Name Role Phone USMAN LEES Unavailable PROBLEMS Type Condition ICD9-CM Code MQH65-MX Code Onset Dates Condition S tatus SNOMED Code Problem Constipation due to pain medication K59.03 Active 49078455 Problem Inflammatory spondylopathy of lumbar region M46.96 Active 202147440 Problem Type 2 diabetes mellitus wit hout complication, without long-term current use of insulin E11.9 Active 427071155 Problem Other chronic pain G89.29 Active 8 0255125 Problem Chronic obstructive pulmonary disease, unspecified COPD ty pe J44.9 Active 35578961 Problem Schizoaffective disorder, unspecified type F25.9 Active 32083019 ALLERGIES No Information ENCOUNTERS Encounter Location Date Diagnosis [facility] [address] [place] [address] Jun, [facility] [address] [place] [address] May, 18 Constipation due to pain medication K59.03 ; Chronic obstructive pulmonary disease, unspecified COPD type J44.9 ; Type 2 diabetes mellitus without complication, without long-term current use of insulin E11.9 and Other chronic pain G89.29 [facility] [address] [place] [address] Apr, 18 Other chronic pain G89.29 and Constipation due to pain medication K59.03 [facility] [address] [facility] [id number] [address] [place] [address] Apr, [facility] [address] [place] [address] Apr, 18 [facility] [address] [place] [address] Apr, [address] [address] Apr, [address] [address] Apr, 18 Other chronic pain G89.29 ; Insect bite (nonvenomous) of left upper arm, subsequent encounter S40.862D and Insect bite, subsequent encounter W57.XXXD [address] [address] Mar, [address] [address] Mar, 18 Constipation due to pain medication K59.[address] [address] Mar, 18 Type 2 diabetes mellitus without complication, without long-term current use of insulin E11.9 ; Chronic obstructive pulmonary disease, unspecified COPD type J44.9 ; Other chronic pain G89.29 and Constipation due to pain medication K59.[address] [address] February, 18 [place] [id number] [address] [place] [address] Jan, [address] [address] Jan, 18 Chronic obstructive pulmonary disease, unspecified COPD type J44.9 ; Other chronic pain G89.29 ; Type 2 diabetes mellitus without complication, without long-term current use of insulin E11.9 ; Insect bite (nonvenomous) of left upper arm, initial encounter S40.862A and Bedbug bite, initial encounter W57.XXXA [place] [id number] [address] [place] [address] Jan, [address] [address] Jan, [address] [address] Dec, 18 Other chronic pain G89.29 ; Schizoaffective disorder, unspecified type F25.9 ; Inflammatory spondylopathy of lumbar region M46.96 and Chronic obstructive pulmonary disease, unspecified COPD type J44.[address] [address] Nov, 18 Other chronic pain G89.[address] [address] Oct, 18 Low back pain M54.5 and Type 2 diabetes mellitus without complication, without long-term current use of insulin E11.[address] [address] Oct, 18 Low back pain M54.5 ; Other chronic pain G89.29 and Type 2 diabetes mellitus without complication, without long-term current use of insulin E11.[address] [address] Jan, 16 Dental examination Z01.[address] [id number] [address] [place] [address] Sep, [address] [id number] [address] [place] [address] 15 Jul, 2009 IMMUNIZATIONS No Known Immunizations [...]
--- OUTSIDE RECORDS SUMMARY | 2020-06-01 03:03 | XMS REPORT ---
Author Author Kalyan LEES Organization [facility] Address [address] [place] [address] Care Team Providers Care Bilingual Speech Language Pathologist Name Role Phone USMAN LEES Unavailable PROBLEMS Type Condition ICD9-CM Code DGQ85-SM Code Onset Dates Condition S tatus SNOMED Code Problem Constipation due to pain medication K59.03 Active 92864427 Problem Inflammatory spondylopathy of lumbar region M46.96 Active 204084015 Problem Type 2 diabetes mellitus wit hout complication, without long-term current use of insulin E11.9 Active 772112498 Problem Other chronic pain G89.29 Active 8 0856811 Problem Chronic obstructive pulmonary disease, unspecified COPD ty pe J44.9 Active 35831645 Problem Schizoaffective disorder, unspecified type F25.9 Active 68296691 ALLERGIES Substance Reaction Event Type Date Status Celexa Unknown Drug Allergy Nov, Active ENCOUNTERS Encounter Location Date Diagnosis [address] [id number] Apr, [address] [id number] Apr, [address] [id number] Apr, [address] [id number] Apr, [address] [id number] Apr, 8 Other chronic pain G89.29 ; Insect bite (nonvenomous) of left upper arm, subsequent encounter S40.862D and Insect bite, subsequent encounter W57.XXXD [facility] [address] [facility] [id number] [address] [place] [address] Mar, [facility] [address] [place] [phone] Mar, 8 Constipation due to pain medication K59.[address] [id number] Mar, 8 Type 2 diabetes mellitus without complication, without long-term current use of insulin E11.9 ; Chronic obstructive pulmonary disease, unspecified COPD type J44.9 ; Other chronic pain G89.29 and Constipation due to pain medication K59.[address] [id number] February, 8 [place] [id number] [address] [place] [address] Jan, [address] [id number] Jan, 8 Chronic obstructive pulmonary disease, unspecified COPD type J44.9 ; Other chronic pain G89.29 ; Type 2 diabetes mellitus without complication, without long-term current use of insulin E11.9 ; Insect bite (nonvenomous) of left upper arm, initial encounter S40.862A and Bedbug bite, initial encounter W57.XXXA [place] [id number] [address] [place] [address] Jan, [place] [id number] [address] [place] [address] Jan, [address] [id number] Dec, 8 Other chronic pain G89.29 ; Schizoaffective disorder, unspecified type F25.9 ; Inflammatory spondylopathy of lumbar region M46.96 and Chronic obstructive pulmonary disease, unspecified COPD type J44.[address] [id number] Nov, 8 Other chronic pain G89.[address] [id number] Oct, 8 Low back pain M54.5 and Type 2 diabetes mellitus without complication, without long-term current use of insulin E11.[address] [id number] Oct, 8 Low back pain M54.5 ; Other chronic pain G89.29 and Type 2 diabetes mellitus without complication, without long-term current use of insulin E11.9 [facility] [address] [place] [id number] Jan, [address] [facility] [address] [facility] [id number] [address] [place] [address] Sep, [facility] [address] [facility] [id number] [address] [place] [address] Jul, IMMUNIZATIONS No Known Immunizations SOCIAL HISTORY Never Assessed REASON FOR VISIT Pain management (chronic) pt now sees a neurosurgeon that prescribe him pain med sLidia,RN PLAN OF CARE Activity Details Follow Up 4 Weeks Reason:back pain VITAL SIGNS Height 68 in 2017-12-21 Weight 232.4 lbs 2017-12-21 Temperature 97.3 degrees Fahrenheit 2017-12-21 Heart Rate 120 bpm 2017-12-21 BMI 35.33 kg/m2 2017-12-21 Blood pressure systolic 122 mmHg 2017-12-21 Blood pressure diastolic 78 mmHg 2017-12-21 MEDICATIONS Medication Instructions Dosage Frequency Start Date End Date Duration S tatus Benztropine Mesylate 1 MG Orally 2 times a day 1 tablet 12h Active Duloxetine HCl 60 MG Orally Once a day 1 capsule 24h Active Gabapentin 100 MG 1 capsule before bedtime Active Clonazepam 1 MG Orally 2 times a day 1 tablet 12h Active Hydrocodone-Acetaminophen 7.5-325 MG Orally every 6 hrs 1 tablet as n eeded 6h Active Famotidine 20 MG Orally Once a day 1 tablet 24h Active Tamsulosin HCl 0.4 MG Orally Once a day 1 capsule 24h Active Baclofen 10 mg Orally Three times a day 1 tablet with food or milk 8h Active Glimepiride 2 MG Orally Once a day 1 tablet with breakf ast or the first main meal of the day 24h Active Divalproex Sodium ER 500 MG Orally at bedtime 1 tablet Active RESULTS No Results PROCEDURES Procedure Date Ordered Result Body Site [facility] VISIT ESTABLISHED PATIENT Dec 21, 2017 INSTRUCTIONS MEDICATIONS ADMINISTERED No Known Medications MEDICAL (GENERAL) HISTORY Type Description Date Medical History THYROID PROBLEMS Medical History DIABETES Medical History Bipolar Medical History Schizophrenia Surgical History Rods placed in back 02/2017 Surgical History Rods removed from back s/p infection 2016 Surgical History carpal tunnel release Surgical History cholecystectomy Hospitalization History Back surgery
--- OUTSIDE RECORDS SUMMARY | 2020-06-01 03:03 | XMS REPORT ---
Author Author Kalyan LEES Organization [facility] [address] Address [address] [place] [address] Care Team Providers Care Crate Builder Name Role Phone USMAN LEES Unavailable PROBLEMS Type Condition ICD9-CM Code WNC11-GL Code Onset Dates Condition S tatus SNOMED Code Problem Constipation due to pain medication K59.03 Active 25034793 Problem Inflammatory spondylopathy of lumbar region M46.96 Active 199027076 Problem Type 2 diabetes mellitus wit hout complication, without long-term current use of insulin E11.9 Active 755442683 Problem Other chronic pain G89.29 Active 8 4150122 Problem Chronic obstructive pulmonary disease, unspecified COPD ty pe J44.9 Active 44266875 Problem Schizoaffective disorder, unspecified type F25.9 Active [id number] ALLERGIES Substance Reaction Event Type Date Status Celexa Unknown Drug Allergy Dec, Active ENCOUNTERS Encounter Location Date Diagnosis [facility] [address] [place] [address] Apr, [facility] [address] [place] [id number] [address] [place] [address] Apr, [address] [address] Apr, [address] [address] Apr, [address] [address] Apr, [address] [address] Apr, Other chronic pain G89.29 ; Insect bite (nonvenomous) of left upper arm, subsequent encounter S40.862D and Insect bite, subsequent encounter W57.XXXD [facility] [address] [place] [id number] [address] [place] [address] Mar, [address] [address] Mar, Constipation due to pain medication K59.[address] [address] Mar, Type 2 diabetes mellitus without complication, without long-term current use of insulin E11.9 ; Chronic obstructive pulmonary disease, unspecified COPD type J44.9 ; Other chronic pain G89.29 and Constipation due to pain medication K59.[address] [address] February, [place] [address] [place] [address] Jan, [address] [address] Jan, Chronic obstructive pulmonary disease, unspecified COPD type J44.9 ; Other chronic pain G89.29 ; Type 2 diabetes mellitus without complication, without long-term current use of insulin E11.9 ; Insect bite (nonvenomous) of left upper arm, initial encounter S40.862A and Bedbug bite, initial encounter W57.XXXA [place] [address] [facility] [id number] [address] [place] [address] Jan, [place] [address] [place] [id number] [place] [address] Jan, [address] [address] Dec, Other chronic pain G89.29 ; Schizoaffective disorder, unspecified type F25.9 ; Inflammatory spondylopathy of lumbar region M46.96 and Chronic obstructive pulmonary disease, unspecified COPD type J44.[address] [address] Nov, Other chronic pain G89.[address] [address] Oct, Low back pain M54.5 and Type 2 diabetes mellitus without complication, without long-term current use of insulin E11.[address] [address] Oct, Low back pain M54.5 ; Other chronic pain G89.29 and Type 2 diabetes mellitus without complication, without long-term current use of insulin E11.9 [facility] [address] [place] [address] Jan, Dental examination Z01.20 [facility] [address] [facility] [id number], [place] [address] Sep, [facility] [address] [facility] [id number] [address] [place] [phone] Jul, IMMUNIZATIONS Vaccine Route Administration Date Status TORADOL (IM) 60 MG/2ML (UP TO 15 MG) IM Intramuscular January 18, 2018 Administered SOCIAL HISTORY Never Assessed REASON FOR VISIT 1 month f/u Chapin Whatley RN PLAN OF CARE Activity Details Follow Up 4 Weeks Reason:back pain VITAL SIGNS Height 68 in 2018-01-18 Weight 226.6 lbs 2018-01-18 Temperature 98.5 degrees Fahrenheit 2018-01-18 Heart Rate 90 bpm 2018-01-18 Respiratory Rate 18 2018-01-18 BMI 34.45 kg/m2 2018-01-18 Blood pressure systolic 122 mmHg 2018-01-18 Blood pressure diastolic 70 mmHg 2018-01-18 MEDICATIONS Medication Instructions Dosage Frequency Start Date End Date Duration S tatus Famotidine 20 MG Orally Once a day 1 tablet 24h Active Tamsulosin HCl 0.4 MG Orally Once a day 1 capsule 24h Active Clonazepam 1 MG Orally 2 times a day 1 tablet 12h Active Hydrocodone-Acetaminophen 7.5-325 MG Orally every 6 hrs 1 tablet as n eeded 6h Active Divalproex Sodium ER 500 MG Orally at bedtime 1 tablet Active Gabapentin 100 MG 1 capsule before bedtime Active Duloxetine HCl 60 MG Orally Once a day 1 capsule 24h Active Glimepiride 2 MG Orally Once a day 1 tablet with breakf ast or the first main meal of the day 24h Active Benztropine Mesylate 1 MG Orally 2 times a day 1 tablet 12h Active Baclofen 10 mg Orally Three times a day 1 tablet with food or milk 8h Active RESULTS No Results PROCEDURES Procedure Date Ordered Result Body Site [facility] VISIT ESTABLISHED PATIENT January 18, 2018 THER/PROPH/DIAG INJ, SC/IM January 18, 2018 TORADOL (IM) 60 MG/2ML (UP TO 15 MG) January 18, 2018 INSTRUCTIONS MEDICATIONS ADMINISTERED No Known Medications MEDICAL (GENERAL) HISTORY Type Description Date Medical History THYROID PROBLEMS Medical History DIABETES Medical History Bipolar Medical History Schizophrenia Surgical History Rods placed in back 02/2017 Surgical History Rods removed from back s/p infection 2016 Surgical History carpal tunnel release Surgical History cholecystectomy Hospitalization History Back surgery
--- OUTSIDE RECORDS SUMMARY | 2020-06-01 03:03 | XMS REPORT | Continuity of Care Document ---
Author Organization Unknown Address Unknown Phone Unavailable Allergies Active Description Code Type Severity Reaction Onset Reported/Identified Relationship to Patient Clinical Status Yes Celexa 8184 Drug N/A N/A Yes Haldol 5282 Drug Allergy N/A N/A Yes metformin 4534 Drug Allergy N/A N/A Yes citalopram [id number] Drug Allerg y Unknown N/A 12/08/2005 Yes CeleXA NKMA Unknown N/A 03/13/2020 Medications Medication Packaging Start Date St op Date Route Dosage Sig atorvastatin(atorvastatin 10 mg oral table t) 1 tabs 03/13/2020 Oral 10 mg 10 mg = 1 tabs, Oral, Bedtime (once a day), 90 tabs, 0 Refill(s) benztropine(benztropine 1 mg oral tablet) 1 tabs 03/13/2020 Oral 1 mg 1 mg = 1 tabs, Oral, BID, 60 tabs, 0 Refill(s) baclofen(baclofen 20 mg oral tablet) 1 tabs 03/13/2020 Oral 20 mg 20 mg = 1 tabs, Oral, TID, 90 tabs, 0 Refill(s) suvorexant(Belsomra) 03/13/2020 See Instructions, Oral Bedtime (once a day), 0 Refill(s) famotidine(famotidine 20 mg oral tablet) 1 tabs 03/13/2020 03/19/2020 Oral 20 mg 20 mg = 1 tabs, Oral, Daily, 0 Refill(s) divalproex sodium(divalproex sodium 500 mg oral delayed release tablet) tabs 03/13/2020 Oral mg mg = tabs, Oral, Bedtime (once a day), 0 Refill(s) doxepin(doxepin 100 mg oral capsule) 1 caps 03/13/2020 03/19/2020 Oral 100 mg 100 mg = 1 caps, Oral, Bedtime (once a day), 30 caps, 0 Refill(s) gabapentin(gabapentin 100 mg oral capsule) 1 caps 03/13/2020 03/19/2020 Oral 100 mg 100 mg = 1 caps, Oral, Bedti me (once a day), 0 Refill(s) glimepiride(glimepiride 2 mg oral tablet) 1 tabs 03/13/2020 Oral 2 mg 2 mg = 1 tabs, Oral, Daily, 30 tabs, 0 Refill(s) paliperidone(Invega Sustenna 234 mg/1.5 mL intramuscular suspension, extended release) 03/13/2020 See Inst ructions, 234 mg IntraMuscular qMonth, 0 Refill(s) metoprolol tartrate(metoprol ol tartrate 25 mg oral tablet) 1 tabs 03/13/2020 Oral 2 5 mg 25 mg = 1 tabs, Oral, BID, 6 0 tabs, 0 Refill(s) linaclotide(Linzess 145 mcg oral capsule) 1 caps 03/13/2020 Oral 145 mcg 145 mcg = 1 caps, Oral, Daily, 30 caps, 0 Refill(s) oxyCODONE(oxyCODONE 5 mg oral capsule) 1 caps 03/13/2020 Oral 5 mg 5 mg = 1 caps, Oral, q6hr, PRN: as needed for pain, 0 Refill(s) cariprazine(Vraylar 4.5 mg oral capsule) 03/13/2020 03/19/2020 Voided Sodium Chloride 0.9% intrave nous solutio(Sodium Chloride 0.9% intravenous solution 1,000 mL) 1,000 mL 03/19/2020 IV 75 mL/hr, IV morphine(morphine) 1 mL 03/19/2020 03/19/2020 IV Push 2 mg 2 mg = 1 mL, IV Push, q2hr, PRN: Pain metoclopramide(metoclopramide) 2 mL 03/19/2020 03/19/2020 IV Push 10 mg 10 mg = 2 mL, IV Push, q6hr, PRN: Nausea or Vomiting nitroglycerin(nitroglycerin) 1 tabs 03/19/2020 03/19/2020 SubLingual 0.4 mg 0.4 mg = 1 tabs, SubLingual, q5min, PRN: Angina/Chest Pain ondansetron(ondansetron) 2 m L 03/19/2020 03/19/2020 IV Push 4 mg 4 mg = 2 mL, IV Push, q6hr, PRN: Nausea or Vomiting oxyCODONE(Roxicodone) 1 tabs 03/19/2020 03/19/2020 Oral 5 mg 5 mg = 1 tabs, Oral, q4hr, PRN: Pain acetaminophen(acetaminophen) 2 tabs 03/19/2020 03/19/2020 Oral 650 mg 650 mg = 2 tabs, Oral, q4hr, PRN: Pain Mild (1-3) aspirin(aspirin) 1 tabs 03/19/2020 03/19/2020 Oral 81 mg 81 mg = 1 tabs, Oral, Daily Problems Date Dx Coded Attending Type Code Diagnosis Diagnosed By 05/08/2015 MARY LANG 719.46 Pain, knee 06/17/2017 RAMON MILLER DO Ot T81.9XXA UNSPECIFIED COMPLICATION OF PROCEDURE, I 06/17/2017 RAMON MILLER DO Ot Z45 .2 ENCOUNTER FOR ADJUSTMENT AND MANAGEMENT 10/19/2017 Brett Nickerson MD M54.5 Back pain, lumbar, chronic 02/22/2019 DARNELL ORTIZ Final M19.0 12 Primary osteoarthritis, left shoulder 02/22/2019 DARNELL ORTIZ Reason For Visit M25.511 Pain in right shoulder 04/09/2019 FRANCO LEPE Final F17.210 Nicotine dependence, cigarettes, uncomplicated 04/09/2019 FRANCO LEPE Reason For Vis it M54.5 Low back pain 04/09/2019 FRANCO LEPE Final Z79.891 manager intermediate (current) use of opiate analgesic 05/24/2019 Luis Bustillo Reason For Visit E11.9 Type 2 diabetes mellitus without complications 05/24/2019 Luis Bustillo Final M53.2 X9 Spinal instabilities, site unspecified 05/24/2019 Luis Bustillo Final M54.5 Low back pain 05/24/2019 Luis Bustillo Final M96.1 Postlaminectomy syndrome, not elsewhere classified 06/18/2019 DEN WOLF Final F17.21 0 Nicotine dependence, cigarettes, uncomplicated 06/18/2019 DEN WOLF Reason For Visit M25.512 Pain in left shoulder 06/18/2019 DEN WOLF Final M54.5 Low back pain 06/18/2019 Brett Nickerson MD M25.5 12 Shoulder pain, left, chronic 06/18/2019 Brett Nickerson MD E66.9 Obesity Class II (BMI 35-39.9) 06/18/2019 Brett Nickerson MD Z68.3 5 BMI 35-35.9 07/26/2019 USMAN LEES Reason For Visit M25.511 Pain in right shoulder 09/25/2019 USMAN LEES Reason For Visit M54.5 Low back pain 10/08/2019 SAVANNAH COOK Final F11.99 Opioid use, unspecified with unspecified opioid-induce d disorder 10/08/2019 SAVANNAH COOK Reason For Visi t F20.9 Schizophrenia, unspecified 10/08/2019 SAVANNAH COOK Final F31.9 Bipolar disorder, unspecified 10/08/2019 SAVANNAH COOK Final F41.9 Anxiety disorder, unspecified 10/08/2019 SAVANNAH COOK Final 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 5 Low back pain 10/09/2019 Lindy Valiente Reason For Visit T50.901A Poisoning by unspecified drugs, medicame nts and biological substances, accidental (unintentional), initial encounter 10/09/2019 Lindy Valiente Final Z 79.899 Other intermediate (current) drug therapy 10/09/2019 USMAN GALVEZ Reason For Visit R41.82 Altered mental status, unspecified 11/09/2019 FRANCO LEPE Final F17.210 Nicotine dependence, cigarettes, uncomplicated 11/09/2019 FRANCO LEPE Final G89.29 Other chronic pain 11/09/2019 FRANCO LEPE Reason For Vis it M54.5 Low back pain 01/28/2020 FRANCO LEPE Reason For Vis it Z03.818 Encounter for observation for suspected exposure to other biological agents ruled out 03/21/2020 Cecilio Pham Final E78 .5 Hyperlipidemia, unspecified 03/21/2020 Cecilio Pham Final F17.210 Nicotine dependence, cigarettes, uncomplicated 03/21/2020 Cecilio Pham Final F20 .9 Schizophrenia, unspecified 03/21/2020 Cecilio Pham Final F31 .9 Bipolar disorder, unspecified 03/21/2020 Cecilio Pham Reason I25.10 Atherosclerotic heart disease of [place] coronary artery without angina pect 03/21/2020 Cecilio Pham Final R00 .0 Tachycardia, unspecified 03/21/2020 Cecilio Pham Final Z79.891 residential (current) use of opiate analgesic 03/21/2020 Cecilio Pham Final Z79.899 Other intermediate (current) drug therapy 03/21/2020 Cecilio Pham Final Z88 .8 Allergy status to other drugs, medicaments and biological substances status 04/09/2020 USMAN GALVEZ Reason For Visit R53.83 Other fatigue 04/10/2020 FRANCO LEPE Reason For Vis it R41.82 Altered mental status, unspecified 04/10/2020 FRANCO LEPE Final T50.901A Poisoning by unspecified drugs, medicame nts and biological substances, accidental (unintentional), initial encounter 05/07/2020 USMAN LEES Final M4 8.56XA Collapsed vertebra, not elsewhere classi fied, lumbar region, initial encounter for fracture 05/07/2020 USMAN LEES Reason For Visit Z04.3 Encounter for examination and observatio n following other accident 05/07/2020 USMAN LEES Final Z98.1 Arthrodesis status Procedures There is no data. Results Test Result Range TSH - 07/17/18 16:02 TSH 1.93 mIU/L 0.40-4.50 PDM - 09 PANEL (PROFILE 1) - 06/29/19 15 :20 Prescribed Drug 1 Oxycodone NRG Creatinine 109.9 mg/dL > or = 20.0 pH 6.59 4.5 - 9.0 Oxidant NEGATIVE mcg/mL <200 Amphetamines NEGATIVE ng/mL <500 medMATCH Amphetamines CONSISTENT NRG Benzodiazepines NEGATIVE ng/mL <100 medMATCH Benzodiazepines INCONSISTENT N RG Marijuana Metabolite NEGATIVE ng/mL <20 medMATCH Marijuana Metab CONSISTENT NRG Cocaine Metabolite NEGATIVE ng/mL <150 medMATCH Cocaine Metab CONSISTENT NRG Opiates NEGATIVE ng/mL <100 medMATCH Opiates CONSISTENT NRG Oxycodone POSITIVE ng/mL <100 COMMENT NRG Prescribed Drug 2 Diazepam NRG Noroxycodone 1154 ng/mL <50 medMATCH Noroxycodone CONSISTENT NRG Oxycodone 342 ng/mL <50 medMATCH Oxycodone CONSISTENT NRG Oxymorphone 329 ng/mL <50 medMATCH Oxymorphone CONSISTENT NRG Barbiturates NEGATIVE ng/mL <300 medMATCH Barbiturates CONSISTENT NRG Methadone Metabolite NEGATIVE ng/mL <100 medMATCH Methadone Metab CONSISTENT NRG Phencyclidine NEGATIVE ng/mL <25 medMATCH Phencyclidine CONSISTENT NRG ABO and RH - 03/19/20 06:42 ABO and Rh NA Antibody Screen - 03/19/20 06:42 Antibody Screen NA CBC With Platelet No Differential - 02/22 05/12 06:43 HCT 42.0 % 42.0-52.0 HGB 14.0 g/dL 14.0-18.0 MCH 29.7 pg 27.0-32.0 MCHC 33.3 g/dL 32.0-36.0 MCV 89.2 fL 82.0-99.0 MPV 10.3 fL 9.4-12.3 Platelet Count 240 K/uL 150-400 RBC 4.71 10*6/uL 4.60-6.20 RDW 12.9 % 11.5-14.5 WBC 10.2 K/uL 4.8-10.8 Basic Metabolic Panel (BMP) - 03/19/20 0 6:43 Anion Gap 9 mEq/L 3-20 BUN 14 mg/dL 4-20 Calcium 8.9 mg/dL 8.6-10.0 Chloride 106 mEq/L 99-109 CO2 22 mEq/L 22-32 Creatinine 0.81 mg/dL 0.64-1.27 Glucose 139 mg/dL 70-100 Potassium 4.3 mEq/L 3.6-5.1 Sodium 137 mEq/L 136-144 eGFR - 03/19/20 06:43 eGFR >60 mL/min >60 PSA - 03/27/20 15:06 PSA, TOTAL 0.6 ng/mL < OR = 4.0 PDM - 09 PANEL (PROFILE 1) - 04/04/20 15 :33 Prescribed Drug 1 Oxycodone NRG Creatinine 63.2 mg/dL > or = 20.0 pH 7.1 4.5-9.0 Oxidant NEGATIVE mcg/mL <200 Amphetamines NEGATIVE ng/mL <500 medMATCH Amphetamines CONSISTENT NRG Benzodiazepines NEGATIVE ng/mL <100 medMATCH Benzodiazepines CONSISTENT NRG Marijuana Metabolite NEGATIVE ng/mL <20 medMATCH Marijuana Metab CONSISTENT NRG Cocaine Metabolite NEGATIVE ng/mL <150 medMATCH Cocaine Metab CONSISTENT NRG Opiates NEGATIVE CONFIRMED ng/mL <100 Oxycodone POSITIVE ng/mL <100 COMMENT NRG Codeine NEGATIVE ng/mL <50 medMATCH Codeine CONSISTENT NRG Hydrocodone NEGATIVE ng/mL <50 medMATCH Hydrocodone CONSISTENT NRG Hydromorphone NEGATIVE ng/mL <50 medMATCH Hydromorphone CONSISTENT NRG Morphine NEGATIVE ng/mL <50 medMATCH Morphine CONSISTENT NRG Norhydrocodone NEGATIVE ng/mL <50 medMATCH Norhydrocodone CONSISTENT NRG Noroxycodone 2589 ng/mL <50 medMATCH Noroxycodone CONSISTENT NRG Oxycodone 1448 ng/mL <50 medMATCH Oxycodone CONSISTENT NRG Oxymorphone 417 ng/mL <50 medMATCH Oxymorphone CONSISTENT NRG Barbiturates NEGATIVE ng/mL <300 medMATCH Barbiturates CONSISTENT NRG Methadone Metabolite NEGATIVE ng/mL <100 medMATCH Methadone Metab CONSISTENT NRG Phencyclidine NEGATIVE ng/mL <25 medMATCH Phencyclidine CONSISTENT NRG Encounters ACCT No. Visit Date/Time Discharge Status Pt. Type Provider Facility Loc./Unit Complaint [id number] 03/19/2020 06:07:00 020 11:55:00 DIS Outpatient Cecilio Pham [facility] FOPS R07.89- Chest Pain// R94.30- Abnormal result of cardiovascul [id number] 03/20/2020 05:12:59 Document Registration [id number] 03/14/2020 05:13:08 Document Registration [id number] 04/02/2020 12:54:11 04/02/2020 23:59: 59 CLS Outpatient Nadia Grewal [id number] 06/28/2019 12:32:43 06/28/2019 23:59: 59 CLS Outpatient Luis Bustillo [id number] 05/01/2019 16:24:32 05/01/2019 23:59: 59 CLS Outpatient Orion Bustilloitya [id number] 11/26/2019 17:09:13 ACT Unknown Laron LAMBERT, Brett [id number] 05/08/2015 08:00:00 05/08/2015 12: 00:00 DIS [facility] [id number] 05/30/2020 14:20:00 ACT Outpatient USMAN LEES MD [facility] [address] [id number] 04/04/2020 15:00:00 Document Registration [id number] 03/27/2020 14:00:00 Document Registration [id number] 06/29/2019 13:20:00 Document Registration [id number] 07/17/2018 15:00:00 Document Registration [id number] 02/17/2017 12:05:00 017 23:59:59 CLS Outpatient RAMON MILLER DO [facility] LUMBAR WOUND DRAINAGE [id number] 06/01/2020 02:54:[address] Emergency ANNA LAMBERT, RIOS Archer [facility] ER LOWER BP [id number] 05/07/2020 13:17:33 0 23:59:59 DIS Outpatient USMAN LEES [facility] fall; initial encoun ter [id number] 04/09/2020 20:52:55 0 02:25:00 DIS Emergency FRANCO LEPE [facility] ER visit [id number] 04/09/2020 20:27:00 0 23:59:59 DIS Outpatient USMAN GALVEZ [facility] [id number] 01/28/2020 20:45:34 0 21:45:00 DIS Emergency FRANCO LEPE [facility] ED ed visit [id number] 11/09/2019 22:12:43 0 22:59:00 DIS Emergency FRANCO LEPE [facility] ED Visit [id number] 10/09/2019 22:38:00 9 23:59:59 DIS Outpatient USMAN GALVEZ N [facility] [id number] 10/09/2019 10:29:24 9 13:50:00 DIS Emergency Lindy Valiente [facility] ED ed visist [id number] 10/08/2019 12:05:07 9 23:59:59 DIS Outpatient JOEYSAVANNAH [facility] lab [id number] 08/17/2019 13:51:10 9 10:13:00 DIS Outpatient USMAN LEES [facility] PT LBP [id number] 07/05/2019 14:47:39 9 15:48:00 DIS R USMAN LEES [facility] PT R Shoulder [id number] 06/18/2019 01:36:53 9 02:05:00 DIS Emergency DEN WOLF [facility] ED ed visit [id number] 05/24/2019 12:52:18 9 23:59:59 DIS Outpatient Bustillo, Luis [facility] RAD Low back pain [id number] 04/09/2019 03:24:00 9 04:13:00 DIS Emergency FRANCO LEPE [facility] ED ER [id number] 03/15/2019 22:55:00 9 00:05:00 DIS Emergency DEN WOLF [facility] ED ED Visit [id number] 02/22/2019 13:58:05 9 23:59:59 CLS [facility] OT Bilat Shoulders [id number] 02/22/2019 13:34:07 9 23:59:59 DIS Outpatient DARNELL ORTIZ [facility] Xray [id number] 02/22/2019 13:06:20 9 23:59:59 DIS Outpatient DARNELL ORTIZ [facility] Ortho [id number] 01/23/2019 20:32:00 9 21:35:00 DIS Emergency USMAN GALVEZ [facility] ED ed visit [id number] 12/26/2018 22:41:00 9 23:59:59 DIS Outpatient USMAN GALVEZ N [facility] [id number] 12/18/2018 19:01:00 9 20:01:00 DIS Emergency DEN SCHOFIELD [facility] ED ed visit [id number] 11/09/2018 03:27:00 9 04:30:00 DIS Emergency MALORIE OROPEZA [facility] ED ER [id number] 10/02/2018 16:53:00 8 20:02:00 DIS Emergency [place] [facility] ED ed visit [id number] 01/15/2018 17:22:00 8 18:00:00 DIS Emergency [place] [facility] ED ed visit [id number] 01/10/2018 18:47:00 8 12:50:00 DIS V BILLIE GOODMAN [facility] OBS suicidal ideation, intoxicat ion [id number] 01/10/2018 18:12:00 8 23:59:59 DIS Outpatient DEN WOLF [facility] [id number] 10/14/2017 11:36:00 7 12:05:00 DIS Emergency DEN WOLF [facility] ED ed visit [id number] 09/04/2017 02:55:00 7 19:20:00 DIS V BRETT NICKERSON [facility] OBS Hallucinations, suicidal Faviola ation [id number] 07/16/2015 09:40:00 07/16/2015 09:40 :00 DIS Outpatient DARNELL ORTIZ [facility] RAD [id number] 06/19/2019 15:22:35 ACT Document Registration
--- OUTSIDE RECORDS SUMMARY | 2020-06-01 03:03 | XMS REPORT ---
Author Author Kalyan LEES Organization [facility] [address] Address [address] [place] [address] Care Team Providers Care Mushroom Picker Name Role Phone USMAN LEES Unavailable PROBLEMS Type Condition ICD9-CM Code PPU71-WX Code Onset Dates Condition S tatus SNOMED Code Problem Constipation due to pain medication K59.03 Active 81861342 Problem Inflammatory spondylopathy of lumbar region M46.96 Active 921751871 Problem Type 2 diabetes mellitus wit hout complication, without long-term current use of insulin E11.9 Active 542561839 Problem Other chronic pain G89.29 Active 8 5388591 Problem Chronic obstructive pulmonary disease, unspecified COPD ty pe J44.9 Active 90299034 Problem Schizoaffective disorder, unspecified type F25.9 Active 46333412 ALLERGIES No Information ENCOUNTERS Encounter Location Date Diagnosis [facility] [place] [address] [place] [address] May, 18 [facility] [address] [place] [address] Apr, 18 Other chronic pain G89.29 and Constipation due to pain medication K59.03 [facility] [address] [facility] [id number] [address] [place] [address] Apr, [facility] [address] [place] [address] Apr, 18 [facility] [address] [place] [address] Apr, 18 [facility] [address] [place] [address] Apr, 18 [facility] [address] [place] [address] Apr, 18 Other chronic pain G89.29 ; Insect bite (nonvenomous) of left upper arm, subsequent encounter S40.862D and Insect bite, subsequent encounter W57.XXXD [place] [id number] [address] [place] [address] Mar, [address] [address] Mar, 18 Constipation due to pain medication K59.[address] [address] 04 Mar, 18 Type 2 diabetes mellitus without complication, without long-term current use of insulin E11.9 ; Chronic obstructive pulmonary disease, unspecified COPD type J44.9 ; Other chronic pain G89.29 and Constipation due to pain medication K59.[address] [address] February, [place] [id number] [address] [place] [address] Jan, [address] [address] Jan, 18 Chronic obstructive pulmonary disease, unspecified COPD type J44.9 ; Other chronic pain G89.29 ; Type 2 diabetes mellitus without complication, without long-term current use of insulin E11.9 ; Insect bite (nonvenomous) of left upper arm, initial encounter S40.862A and Bedbug bite, initial encounter W57.XXXA [place] [id number] [address] [place] [address] Jan, [address] [place] [address] Jan, [address] [address] Dec, 18 Other chronic pain G89.29 ; Schizoaffective disorder, unspecified type F25.9 ; Inflammatory spondylopathy of lumbar region M46.96 and Chronic obstructive pulmonary disease, unspecified COPD type J44.[address] [address] Nov, 18 Other chronic pain G89.[address] [address] Oct, 18 Low back pain M54.5 and Type 2 diabetes mellitus without complication, without long-term current use of insulin E11.9 [facility] [address] [place] [address] Oct, 18 Low back pain M54.5 ; Other chronic pain G89.29 and Type 2 diabetes mellitus without complication, without long-term current use of insulin E11.9 [facility] [address] [place] [address] Jan, 16 Dental examination Z01.20 [facility] [address] [facility] [id number] [address] [place] [address] Sep, [place] [address] [facility] [id number] [address] [place] [address] Jul, IMMUNIZATIONS No Known Immunizations SOCIAL HISTORY Never Assessed REASON FOR VISIT Medication request PLAN OF CARE VITAL SIGNS MEDICATIONS Medication Instructions Dosage Frequency Start Date End Date Duration S tatus Linzess 145 MCG Orally Once a day 1 capsule 24h Mar, Active RESULTS No Results PROCEDURES No Known [...]
--- OUTSIDE RECORDS SUMMARY | 2020-06-01 03:03 | XMS REPORT ---
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 [address] [place] [address] Apr, Other chronic pain G89.29 and Constipation due to pain medication K59.03 [facility] [address] [facility] [id number] [address] [address] Apr, [facility] [address] [place] [address] Apr, [facility] [address] [place] [address] Apr, [facility] [address] [place] [address] Apr, [address] [address] Apr, Other chronic pain G89.29 ; Insect bite (nonvenomous) of left upper arm, subsequent encounter S40.862D and Insect bite, subsequent encounter W57.XXXD [place] [address] [place] [address] Mar, [facility] [address] [place] [address] Mar, Constipation due to pain medication K59.03 [facility] [place] [address] [place] [address] 04 Mar, 2018 Type 2 diabetes mellitus without complication, without long-term current use of insulin E11.9 ; Chronic obstructive pulmonary disease, unspecified COPD type J44.9 ; Other chronic pain G89.29 and Constipation due to pain medication K59.03 [facility] [address] [address] February, [place] [address] [address] Jan, [facility] [address] [address] Jan, Chronic obstructive pulmonary disease, unspecified COPD type J44.9 ; Other chronic pain G89.29 ; Type 2 diabetes mellitus without complication, without long-term current use of insulin E11.9 ; Insect bite (nonvenomous) of left upper arm, initial encounter S40.862A and Bedbug bite, initial encounter W57.XXXA [place] [address] [place] [id number] [address] [place] [address] Jan, [place] [address] [address] Jan, [address] [address] Dec, Other chronic pain G89.29 ; Schizoaffective disorder, unspecified type F25.9 ; Inflammatory spondylopathy of lumbar region M46.96 and Chronic obstructive pulmonary disease, unspecified COPD type J44.9 [facility] [place] [address] [place] [address] Nov, Other chronic pain G89.29 [facility] [place] [address] [place] [address] Oct, Low back pain M54.5 and Type 2 diabetes mellitus without complication, without long-term current use of insulin E11.9 [facility] [address] [place] [address] Oct, Low back pain M54.5 ; Other chronic pain G89.29 and Type 2 diabetes mellitus without complication, without long-term current use of insulin E11.9 [facility] [address] [place] [address] Jan, Dental examination Z01.20 [facility] [address] [place] [id number] [address] [place] [address] Sep, [facility] [address] [facility] [id number] [address] [place] [address] Jul, IMMUNIZATIONS No Known Immunizations SOCIAL HISTORY Never Assessed REASON FOR VISIT Enrolled in [facility] PLAN OF CARE VITAL SIGNS MEDICATIONS Unknown [...]
--- OUTSIDE RECORDS SUMMARY | 2020-06-01 03:03 | XMS REPORT ---
Author Author Kalyan LEES Organization [facility] [address] Address [address] [place] [address] Care Team Providers Care President [place] Name Role Phone USMAN LEES Unavailable PROBLEMS Type Condition ICD9-CM Code NLY90-UA Code Onset Dates Condition S tatus SNOMED Code Problem Constipation due to pain medication K59.03 Active 04448383 Problem Inflammatory spondylopathy of lumbar region M46.96 Active 288606799 Problem Type 2 diabetes mellitus wit hout complication, without long-term current use of insulin E11.9 Active 068054395 Problem Other chronic pain G89.29 Active 8 3021170 Problem Chronic obstructive pulmonary disease, unspecified COPD ty pe J44.9 Active 90633932 Problem Schizoaffective disorder, unspecified type F25.9 Active 41243497 ALLERGIES No Information ENCOUNTERS Encounter Location Date Diagnosis [facility] [address] [place] [address] May, [facility] [address] [place] [address] Apr, Other chronic pain G89.29 and Constipation due to pain medication K59.03 [facility] [address] [facility] [id number] [address] [address] Apr, [facility] [address] [place] [address] Apr, [facility] [address] [place] [address] Apr, [facility] [address] [place] [address] Apr, [address] [address] Apr, Other chronic pain G89.29 ; Insect bite (nonvenomous) of left upper arm, subsequent encounter S40.862D and Insect bite, subsequent encounter W57.XXXD [place] [address]31 [address] [place] [address] Mar, [facility] [address] [place] [address] Mar, Constipation due to pain medication K59.03 [facility] [place] [address] [place] [address] 04 Mar, 2018 Type 2 diabetes mellitus without complication, without long-term current use of insulin E11.9 ; Chronic obstructive pulmonary disease, unspecified COPD type J44.9 ; Other chronic pain G89.29 and Constipation due to pain medication K59.03 [facility] [address] [address] February, [place] [address] [address] Jan, [facility] [address] [address] Jan, Chronic obstructive pulmonary disease, unspecified COPD type J44.9 ; Other chronic pain G89.29 ; Type 2 diabetes mellitus without complication, without long-term current use of insulin E11.9 ; Insect bite (nonvenomous) of left upper arm, initial encounter S40.862A and Bedbug bite, initial encounter W57.XXXA [place] [address] [place] [id number] [address] [place] [address] Jan, [place] [address] [address] Jan, [address] [address] Dec, Other chronic pain G89.29 ; Schizoaffective disorder, unspecified type F25.9 ; Inflammatory spondylopathy of lumbar region M46.96 and Chronic obstructive pulmonary disease, unspecified COPD type J44.9 [facility] [place] [address] [place] [address] Nov, Other chronic pain G89.29 [facility] [place] [address] [place] [address] Oct, Low back pain M54.5 and Type 2 diabetes mellitus without complication, without long-term current use of insulin E11.9 [facility] [address] [place] [address] Oct, Low back pain M54.5 ; Other chronic pain G89.29 and Type 2 diabetes mellitus without complication, without long-term current use of insulin E11.9 [facility] [address] [place] [address] Jan, Dental examination Z01.20 [facility] [address] [place] [id number] [address] [place] [address] Sep, [facility] [address] [facility] [id number] [address] [place] [address] Jul, IMMUNIZATIONS No Known Immunizations SOCIAL HISTORY Never Assessed REASON FOR VISIT DM printed education PLAN OF CARE VITAL SIGNS MEDICATIONS Unknown [...]
--- OUTSIDE RECORDS SUMMARY | 2020-06-01 03:03 | XMS REPORT ---
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 Name Role Phone USMAN LEES Unavailable PROBLEMS Type Condition ICD9-CM Code NDK79-KO Code Onset Dates Condition S tatus SNOMED Code Problem Constipation due to pain medication K59.03 Active 66529977 Problem Inflammatory spondylopathy of lumbar region M46.96 Active 231859100 Problem Type 2 diabetes mellitus wit hout complication, without long-term current use of insulin E11.9 Active 447174337 Problem Other chronic pain G89.29 Active 8 3620849 Problem Chronic obstructive pulmonary disease, unspecified COPD ty pe J44.9 Active 42602649 Problem Schizoaffective disorder, unspecified type F25.9 Active 45346936 ALLERGIES No Information ENCOUNTERS Encounter Location Date Diagnosis [facility] [address] [place] [address] May, [facility] [address] [place] [address] Apr, Other chronic pain G89.29 and Constipation due to pain medication K59.03 [facility] [address] [facility] [id number] [place] [address] Apr, [facility] [address] [place] [address] Apr, [facility] [address] [place] [address] Apr, [facility] [address] [place] [address] Apr, [address] [address] Apr, Other chronic pain G89.29 ; Insect bite (nonvenomous) of left upper arm, subsequent encounter S40.862D and Insect bite, subsequent encounter W57.XXXD [place] [address]6571 [address] [place] [address] Mar, [facility] [address] [place] [address] Mar, Constipation due to pain medication K59.03 [facility] [place] [address] [place] [address] 04 Mar, 2018 Type 2 diabetes mellitus without complication, without long-term current use of insulin E11.9 ; Chronic obstructive pulmonary disease, unspecified COPD type J44.9 ; Other chronic pain G89.29 and Constipation due to pain medication K59.03 [facility] [address] [address] February, [place] [address] [address] Jan, [facility] [address] [address] Jan, Chronic obstructive pulmonary disease, unspecified COPD type J44.9 ; Other chronic pain G89.29 ; Type 2 diabetes mellitus without complication, without long-term current use of insulin E11.9 ; Insect bite (nonvenomous) of left upper arm, initial encounter S40.862A and Bedbug bite, initial encounter W57.XXXA [place] [address] [place] [id number] [address] [place] [address] Jan, [place] [address] [address] Jan, [address] [address] Dec, Other chronic pain G89.29 ; Schizoaffective disorder, unspecified type F25.9 ; Inflammatory spondylopathy of lumbar region M46.96 and Chronic obstructive pulmonary disease, unspecified COPD type J44.9 [facility] [place] [address] [place] [address] Nov, Other chronic pain G89.29 [facility] [place] [address] [place] [address] Oct, Low back pain M54.5 and Type 2 diabetes mellitus without complication, without long-term current use of insulin E11.9 [facility] [address] [place] [address] Oct, Low back pain M54.5 ; Other chronic pain G89.29 and Type 2 diabetes mellitus without complication, without long-term current use of insulin E11.9 [facility] [address] [place] [address] Jan, Dental examination Z01.20 [facility] [address] [place] [id number] [address] [place] [address] Sep, [facility] [address] [facility] [id number] [address] [place] [address] Jul, IMMUNIZATIONS No Known Immunizations SOCIAL HISTORY [...]
--- OUTSIDE RECORDS SUMMARY | 2020-06-01 03:03 | XMS REPORT ---
Author Author Kalyan LEES Organization 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 Name Role Phone USMAN LEES Unavailable PROBLEMS Type Condition ICD9-CM Code WYC23-[place] Code Onset Dates Condition S tatus SNOMED Code Problem Constipation due to pain medication K59.03 Active 77123024 Problem Inflammatory spondylopathy of lumbar region M46.96 Active 503086145 Problem Type 2 diabetes mellitus wit hout complication, without long-term current use of insulin E11.9 Active 250950158 Problem Other chronic pain G89.29 Active 8 2962347 Problem Chronic obstructive pulmonary disease, unspecified COPD ty pe J44.9 Active 13684648 Problem Schizoaffective disorder, unspecified type F25.9 Active 37703437 ALLERGIES Substance Reaction Event Type Date Status Celexa Unknown Drug Allergy Jan, Active ENCOUNTERS Encounter Location Date Diagnosis [facility] [address] [place] [address] May, [facility] [address] [place] [address] Apr, Other chronic pain G89.29 and Constipation due to pain medication K59.03 [facility] [address] [facility] [id number] [place], [place] [address] Apr, [facility] [address] [place] [address] Apr, [facility] [address] [place] [address] Apr, [facility] [address] [place] [address] Apr, [facility] [address] [place] [address] Apr, Other chronic pain G89.29 ; Insect bite (nonvenomous) of left upper arm, subsequent encounter S40.862D and Insect bite, subsequent encounter W57.XXXD [place] [address] [address] Mar, [address] [address] Mar, Constipation due to pain medication K59.[address] [address] 04 Mar, 2018 Type 2 diabetes mellitus without complication, without long-term current use of insulin E11.9 ; Chronic obstructive pulmonary disease, unspecified COPD type J44.9 ; Other chronic pain G89.29 and Constipation due to pain medication K59.[address] [address] February, [place] [address] [address] Jan, [address] [address] Jan, Chronic obstructive pulmonary disease, unspecified COPD type J44.9 ; Other chronic pain G89.29 ; Type 2 diabetes mellitus without complication, without long-term current use of insulin E11.9 ; Insect bite (nonvenomous) of left upper arm, initial encounter S40.862A and Bedbug bite, initial encounter W57.XXXA [place] [address] [address] Jan, [place] [address] [address] Jan, [address] [address] Dec, Other chronic pain G89.29 ; Schizoaffective disorder, unspecified type F25.9 ; Inflammatory spondylopathy of lumbar region M46.96 and Chronic obstructive pulmonary disease, unspecified COPD type J44.[address] [address] Nov, Other chronic pain G89.[address] [address] Oct, Low back pain M54.5 and Type 2 diabetes mellitus without complication, without long-term current use of insulin E11.9 [facility] [address] [place] [address] Oct, Low back pain M54.5 ; Other chronic pain G89.29 and Type 2 diabetes mellitus without complication, without long-term current use of insulin E11.9 [facility] [address] [place] [address] Jan, Dental examination Z01.20 [facility] [address] [facility] [id number] [address] [place] [address] Sep, [facility] [address] [facility] [id number] [address] [place] [address] Jul, IMMUNIZATIONS No Known Immunizations SOCIAL HISTORY Never Assessed REASON FOR VISIT 1 month f/u - S. [place] , rash to arms and back PLAN OF CARE Activity Details Follow Up 4 Weeks Reason: VITAL SIGNS Height 68 in 2018-02-20 Weight 221.8 lbs 2018-02-20 Temperature 98.6 degrees Fahrenheit 2018-02-20 Heart Rate 88 bpm 2018-02-20 Respiratory Rate 18 2018-02-20 BMI 33.72 kg/m2 2018-02-20 Blood pressure systolic 126 mmHg 2018-02-20 Blood pressure diastolic 78 mmHg 2018-02-20 MEDICATIONS Medication Instructions Dosage Frequency Start Date End Date Duration S tatus Glimepiride 2 MG Orally Once a day 1 tablet with breakf ast or the first main meal of the day 24h Active Clonazepam 1 MG Orally 2 times a day 1 tablet 12h Active Triamcinolone Acetonide 0.1 % Externally Twice a day 1 appli cation to affected area 12h Active Paliperidone Palmitate 156 MG/ML Intramuscular once monthly 1 ml Active Benztropine Mesylate 1 MG Orally 2 times a day 1 tablet 12h Active Baclofen 10 mg Orally Three times a day 1 tablet with food or milk 8h Active Divalproex Sodium ER 500 MG Orally at bedtime 1 tablet Active Hydrocodone-Acetaminophen 7.5-325 MG Orally every 6-8 hrs 1 tablet as needed Active Duloxetine HCl 60 MG Orally Once a day 1 capsule 24h Active Famotidine 20 MG Orally Once a day 1 tablet 24h Active Gabapentin 100 MG 1 capsule before bedtime Active Tamsulosin HCl 0.4 MG Orally Once a day 1 capsule 24h Active RESULTS No Results PROCEDURES Procedure Date Ordered Result Body Site [facility] VISIT ESTABLISHED PATIENT February 20, 2018 INSTRUCTIONS MEDICATIONS ADMINISTERED No Known Medications MEDICAL (GENERAL) HISTORY Type Description Date Medical History THYROID PROBLEMS Medical History DIABETES Medical History Bipolar Medical History Schizophrenia Surgical History Rods placed in back 02/2017 Surgical History Rods removed from back s/p infection 2016 Surgical History carpal tunnel release Surgical History cholecystectomy Hospitalization History Back surgery
--- OUTSIDE RECORDS SUMMARY | 2020-06-01 03:03 | XMS REPORT ---
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 Name Role Phone USMAN LEES Unavailable PROBLEMS Type Condition ICD9-CM Code [id number] Code Onset Dates Condition S tatus SNOMED Code Problem Constipation due to pain medication K59.03 Active 43653416 Problem Inflammatory spondylopathy of lumbar region M46.96 Active 837855799 Problem Type 2 diabetes mellitus wit hout complication, without long-term current use of insulin E11.9 Active 502776901 Problem Other chronic pain G89.29 Active 8 7670704 Problem Chronic obstructive pulmonary disease, unspecified COPD ty pe J44.9 Active 61240922 Problem Schizoaffective disorder, unspecified type F25.9 Active 25304325 ALLERGIES Substance Reaction Event Type Date Status Celexa Unknown Drug Allergy Jan, Active ENCOUNTERS Encounter Location Date Diagnosis [facility] [address] [place] [address] May, [facility] [address] [place] [address] Apr, Other chronic pain G89.29 and Constipation due to pain medication K59.03 [facility] [address] [facility] [id number] [address], [place] [address] Apr, [facility] [address] [place] [address] Apr, [facility] [address] [place] [address] Apr, [facility] [address] [place] [address] Apr, [facility] [address] [place] [address] Apr, Other chronic pain G89.29 ; Insect bite (nonvenomous) of left upper arm, subsequent encounter S40.862D and Insect bite, subsequent encounter W57.XXXD [place] [id number] [address] Mar, [address] [address] Mar, Constipation due to pain medication K59.[address] [address] 04 Mar, 2018 Type 2 diabetes mellitus without complication, without long-term current use of insulin E11.9 ; Chronic obstructive pulmonary disease, unspecified COPD type J44.9 ; Other chronic pain G89.29 and Constipation due to pain medication K59.[address] [address] February, [place] [address] [address] Jan, [address] [address] Jan, Chronic obstructive pulmonary disease, unspecified COPD type J44.9 ; Other chronic pain G89.29 ; Type 2 diabetes mellitus without complication, without long-term current use of insulin E11.9 ; Insect bite (nonvenomous) of left upper arm, initial encounter S40.862A and Bedbug bite, initial encounter W57.XXXA [place] [address] [address] Jan, [place] [address] [address] Jan, [address] [address] Dec, Other chronic pain G89.29 ; Schizoaffective disorder, unspecified type F25.9 ; Inflammatory spondylopathy of lumbar region M46.96 and Chronic obstructive pulmonary disease, unspecified COPD type J44.[address] [address] Nov, Other chronic pain G89.[address] [address] Oct, Low back pain M54.5 and Type 2 diabetes mellitus without complication, without long-term current use of insulin E11.9 [facility] [address] [place] [address] Oct, Low back pain M54.5 ; Other chronic pain G89.29 and Type 2 diabetes mellitus without complication, without long-term current use of insulin E11.9 [facility] [address] [place] [address] Jan, Dental examination Z01.20 [facility] [address] [facility] [id number] [address] [place] [address] Sep, [facility] [address] [facility] [id number] [address] [place] [address] Jul, IMMUNIZATIONS No Known Immunizations SOCIAL HISTORY Never Assessed REASON FOR VISIT Update med list PLAN OF CARE VITAL SIGNS MEDICATIONS Medication Instructions Dosage Frequency Start Date End Date Duration S tatus Benztropine Mesylate 1 MG Orally 2 times a day 1 tablet 12h Active Tamsulosin HCl 0.4 MG Orally Once [...] Once a day 1 capsule 24h Active Paliperidone Palmitate 156 MG/ML Intramuscular once monthly 1 ml Active Divalproex Sodium ER 500 MG Orally at bedtime 1 tablet Active Baclofen 10 mg Orally Three times a day 1 tablet with food or milk 8h Active Hydrocodone-Acetaminophen 7.5-325 MG Orally every 6-8 hrs 1 tablet as needed Active RESULTS No Results PROCEDURES No Known [...]
--- NOTE | 2020-06-01 03:27 | ED Back Pain ---
General Chief Complaint: Back Problems Stated Complaint: LOWER BP Nursing Triage Note: PT WITH CHRONIC BACK PAIN, HERE FOR INCREASING BACK PAIN X 1 WEEK. Nursing Sepsis Screen: No Definite Risk Source of Information: Patient Exam Limitations: No Limitations (KEYSHA KEN STUDENT) History of Present Illness Date Seen by Provider: Jun 01, 2020 Time Seen by Provider: 03:00 Initial Comments Kalyan Johns is a 50 year old male seen today due to back pain. He reports that he has had back pain for many years, has had multiple back surgeries. The pain has been increasing for the past week. The pain is located in his lower left back paraspinally, and it does not radiate. He has oxycodone for back pain and reports that it is insufficient for his current pain. He denies any inciting event that caused the pain. He reports having kidney stones he passed on his own many years ago, he is unsure if whether his current pain is like what he had with his kidney stones. His PCP is in [place], [place]. He denies having any fever, chills, dysuria, hematuria, urinary frequency or hesitancy, numbness or tingling, or weakness. Timing/Duration: 1 Week Severity: Mild Pain/Injury Location: Back Modifying Factors: Improves With Pain Medication (KEYSHA KEN STUDENT) Initial Comments He does not have any saddle anesthesia, numbness, weakness or falling tonight. No trauma or inciting event. No paresthesias radiating down either leg. No fevers, chills, dysuria, hematuria. (RIOS CASTILLO) Allergies and Home Medications Allergies Coded Allergies: Citalopram (Verified Allergy, Unknown, 12/08/05) Home Medications Alprazolam 1 Mg Tab.rapdis, 1 MG PO QID, (Reported) Buspirone Hcl 10 Mg Tablet, 1 TAB PO TID, (Reported) Cyclobenzaprine HCl 10 Mg Tablet, 10 MG PO Q8H PRN for SPASMS Prescribed by: RIOS CASTILLO on 06/01/20 0506 Cyclobenzaprine Hcl 10 Mg Tab, 10 MG PO TID, (Reported) Fluticasone/Salmeterol 1 Disk Inhp, 1 PUFF IH BID, (Reported) Glyburide 5 Mg Tablet, 2 EACH PO BIDAC, (Reported) Ipratropium/Albuterol Sulfate 14.7 Gm Aer.w.adap, 2 PUFF IH Q 6 - 8 HRS PRN, (Reported) Naproxen 500 Mg Tablet, 500 MG PO BID Prescribed by: RIOS CASTILLO on 06/01/20 0506 Pioglitazone Hcl 30 Mg Tablet, 1 TAB PO DAILY, (Reported) Sitagliptin Phosphate 100 Mg Tablet, 1 EACH PO DAILY, (Reported) Sulindac 200 Mg Tablet, 200 MG PO BID, (Reported) Ziprasidone 80 Mg Cap, 1 EACH PO BID, (Reported) Zolpidem Tartrate 10 Mg Tab, 10 MG PO HS, (Reported) Patient Home Medication List Home Medication List Reviewed: Yes (RIOS CASTILLO) Review of Systems Constitutional: No chills, No fever Respiratory: No short of breath Cardiovascular: No chest pain, No edema Gastrointestinal: No abdominal pain, No constipation, No diarrhea, No nausea, No vomiting Genitourinary: No dysuria, No frequency, No hematuria, No hesitancy Musculoskeletal: back pain, joint pain (chronic) (KEYSHA KEN) All Other Systems Reviewed Negative Unless Noted: Yes (RIOS CASTILLO) Past Mbynabn-Vevjhd-Jgszex Hx Patient Social History Alcohol Use: Occasionally Uses Recreational Drug Use: No Smoking Status: Current Everyday Smoker (1.5 ppd) 2nd Hand Smoke Exposure: No Recent Foreign Travel: No Contact w/Someone Who Travel: No Recent Infectious Disease Expo: No Recent Hopitalizations: No Physical Abuse: No Sexual Abuse: No Mistreated: No Fear: No (KEYSHA KEN) Alcohol Use: Denies Use Recreational Drug Use: No Smoking Status: Current Everyday Smoker Type Used: Cigarettes (RIOS CASTILLO) Immunizations Up To Date Tetanus Booster (TDap): Unknown PED Vaccines UTD: Yes (KEYSHA KEN) Seasonal Allergies Seasonal Allergies: No (KEYSHA KEN) Past Medical History Surgeries: Yes Gallbladder, Thyroidectomy, Vasectomy Respiratory: No Cardiac: Yes Hypertension Neurological: No Genitourinary: No Gastrointestinal: No Musculoskeletal: Yes Back Injury, Chronic Back Pain Endocrine: Yes Diabetes, Non-Insulin dep HEENT: No Cancer: No Psychosocial: Yes Bipolar, Schizophrenia Integumentary: No (KEYSHA KEN) Physical Exam Vital Signs Vital Signs - First Documented 06/01/20 03:07 Temp 36.9 Pulse 99 Resp 18 B/P (MAP) 122/77 (92) Pulse Ox 98 O2 Delivery Room Air (RIOS CASTILLO) Vital Signs Capillary Refill : Less Than 3 Seconds (KEYSHA KEN MED STUDENT) Height, Weight, BMI Height: 5'7.00" Weight: 180lbs. oz. 81.522540yl; 37.00 BMI Method: General Appearance: Chronically ill, Obese HEENT: PERRL/EOMI; No Scleral Icterus (L), No Scleral Icterus (R) Neck: Normal Inspection, Non Tender, Supple Cardiovascular: Regular Rate, Rhythm, No Edema, No JVD, No Murmur, Normal Peripheral Pulses Respiratory: Lungs Clear, Normal Breath Sounds, No Accessory Muscle Use, No Respiratory Distress Back: CVA Tenderness (L); No CVA Tenderness (R) Extremity: Non Tender, No Calf Tenderness, No Pedal Edema Neurologic/Psychiatric: Alert, Oriented x3, Normal Mood/Affect, Sensory Deficit (sensation loss on lateral L leg) Skin: Normal Color, Warm/Dry (KEYSHA KEN STUDENT) Back: Normal Inspection, No CVA Tenderness, No Vertebral Tenderness; No CVA Tenderness (L), No CVA Tenderness (R); Muscle Spasm (left-sided paralumbar muscle spasms) (RIOS CASTILLO) Progress/Results/Core Measures Results/Orders Lab Results Laboratory Tests Test 06/01/20 04:34 Range/Units Urine Color YELLOW Urine Clarity CLEAR Urine pH 6.0 5-9 Urine Specific [place] 1.020 1.016-1.022 Urine Protein NEGATIVE NEGATIVE Urine Glucose (UA) NEGATIVE NEGATIVE Urine Ketones NEGATIVE NEGATIVE Urine Nitrite NEGATIVE NEGATIVE Urine Bilirubin NEGATIVE NEGATIVE Urine Urobilinogen 0.2 < = 1.0 MG/DL Urine Leukocyte Esterase NEGATIVE NEGATIVE Urine RBC (Auto) NEGATIVE NEGATIVE Urine RBC NONE /HPF Urine WBC NONE /HPF Urine Squamous Epithelial Cells 0-2 /HPF Urine Crystals NONE /LPF Urine Bacteria NEGATIVE /HPF Urine Casts NONE /LPF Urine Mucus NEGATIVE /LPF Urine Culture Indicated NO (RIOS CASTILLO) My Orders Orders - RIOS CASTILLO Ua Culture If Indicated (06/01/20 03:06) Ketorolac Injection (Toradol Injection) (06/01/20 03:30) Orphenadrine Inj (Ed Only) (Norflex Inje (06/01/20 05:00) (RIOS CASTILLO) Medications Given in ED Current Medications Medications Dose Ordered Sig/Mike Route Start Time Stop Time Status Last Admin Dose Admin Ketorolac Tromethamine 60 mg ONCE ONCE IM 06/01/20 03:30 06/01/20 03:31 DC 06/01/20 03:35 60 MG (RIOS CASTILLO) Vital Signs/I&O 06/01/20 06/01/20 03:07 05:12 Temp 36.9 36.9 Pulse 99 99 Resp 18 18 B/P (MAP) 122/77 (92) 161/59 Pulse Ox 98 99 O2 Delivery Room Air (RIOS CASTILLO) Blood Pressure Mean: 92 Progress Progress Note : Time: 04:53 Progress Note Patient was able to make some urine which did not have any red blood cells in it. He does not have any CVA tenderness to percussion on my exam. I suspect he is having lumbago without significant red flag signs. Plan to give him a shot of Toradol, Norflex and put him out on cyclobenzaprine and naproxen. Follow-up with primary care. I attest that I saw this patient alongside the medical student and agree with his documented history, physical exam and review of systems except as otherwise noted. (RIOS CASTILLO) Departure Impression Primary Impression: Lumbago without sciatica Qualified Codes: M54.5 - Low back pain Disposition: 01 HOME, SELF-CARE Condition: Stable Departure-Patient Inst. Decision time for Depature: 04:55 (RIOS CASTILLO) Referrals: NO,LOCAL PHYSICIAN (PCP/Family) Primary Care Physician Patient Instructions: Low Back Pain (DC), Back Stretches on Floor Add. Discharge Instructions: Make a follow-up appointment with your doctor in the next 2 weeks. Discuss appropriate management of your back pain. Consider seeing a chiropractor, treasury specialist, etc. Tylenol 1000 mg every 8 hours as necessary for pain. Naproxen 500 mg twice a day on a scheduled basis for one to 2 weeks until your symptoms are improving. Cyclobenzaprine 1 tablet every 8 hours as necessary for muscle spasms in your low back. Ice alternated with heating pads can be helpful for your pain. Topical creams such as icy hot, Biofreeze or creams with capsaicin can be helpful for pain. Continue wearing a back brace as prescribed. All discharge instructions reviewed with patient and/or family. Voiced understanding. Scripts Cyclobenzaprine HCl (Cyclobenzaprine HCl) 10 Mg Tablet 10 MG PO Q8H PRN for SPASMS, #15 TAB 0 Refills Prov: RIOS CASTILLO 06/01/20 Naproxen (Naprosyn) 500 Mg Tablet 500 MG PO BID for 14 Days, #30 TAB 0 Refills Prov: RIOS CASTILLO 06/01/20 KEYSHA KEN MED STUDENT Jun 01, 2020 03:27 RIOS CASTILLO Jun 01, 2020 04:58
[2020-06-01] MEDS ORDERED: KETOROLAC 60 MG/2 ML VIAL IM ONE (03:30)
[2020-06-01 04:40] LABS: BILIRUBIN,URINE NEGATIVE (NEGATIVE); CLARITY,URINE CLEAR; COLOR,URINE YELLOW; GLUCOSE, URINE (UA) NEGATIVE (NEGATIVE); KETONES,URINE NEGATIVE (NEGATIVE); LEUKOCYTE ESTERASE ,URINE NEGATIVE (NEGATIVE); NITRITE,URINE NEGATIVE (NEGATIVE); PROTEIN,URINE NEGATIVE (NEGATIVE)
[2020-06-01 04:48] LABS: BACTERIA,URINE NEGATIVE /HPF; SQUAMOUS EPITHELIAL CELL,UR 0-2 /HPF
[2020-06-01] MEDS ORDERED: ORPHENADRINE 60 MG/2 ML (NORFLEX) AMP (ED ONLY) IM ONE (05:00)
[2020-06-01] MEDS ORDERED: CYCL10TA9 PO (05:06)
[2020-06-01] MEDS ORDERED: NAPR-1071 PO (05:06)
[2020-06-01 05:12] VITALS: BP 161/59
[2020-06-01] MEDS ORDERED: LORazepam INJ 2 MG/ML (ATIVAN) VIAL IVP ONE (05:15)
== END 2020-06-01 05:13 | disposition home or self-care (01) ==
LOC: EDUNIT# 02:53 → ER 02:54
DX: M54.42 Lumbago with sciatica, left side (principal); I10 Essential (primary) hypertension; E11.9 Type 2 diabetes mellitus without complications; F31.9 Bipolar disorder, unspecified; F20.9 Schizophrenia, unspecified; G89.29 Other chronic pain; F17.210 Nicotine dependence, cigarettes, uncomplicated; Z88.8 Allergy status to other drugs, medicaments and biological substances; Z79.51 Long term (current) use of inhaled steroids; Z98.890 Other specified postprocedural states; Z79.84 Long term (current) use of oral hypoglycemic drugs
CPT/HCPCS: 81000; 99284